=== PATIENT | male | born 1975 | race Caucasian/White ===

== ENCOUNTER 2025-09-05 21:04 | Inpatient (IN) | payer OTHER, SELFPAY ==
[2025-09-05 16:39] VITALS: BP 134/80
[2025-09-05 17:18] LABS: Hematocrit 34.5 % (39.0-52.0); Hemoglobin 10.9 g/dL (13.0-18.0); Mean Corp Hgb Conc. 31.6 g/dL (33.0-37.0); Mean Corpuscular Volume 81.8 fL (80.0-94.0); Nucleated Red Blood Cells % 0 % (-); Platelet Count 160 10^3/uL (130-400); Red Cell Dist. Width 13.3 % (11.5-14.5)
[2025-09-05 17:38] LABS: ALT (SGPT) 22 U/L (0-50); AST (SGOT) 32 U/L (17-59); Albumin 3.5 g/dl (3.5-5.0); Alkaline Phosphatase 146 U/L (38-126); Blood Urea Nitrogen 14 mg/dl (9-20); Calcium 8.3 mg/dl (8.4-10.2); Carbon Dioxide 25 mmol/L (22-30); Chloride 94 mmol/L (98-107); Glucose 393 mg/dl (70-99); Potassium 3.6 mmol/L (3.5-5.1); Sodium 129 mmol/L (135-145); Total Protein 6.7 g/dl (6.3-8.2); eGFR > 60.00
--- NOTE | 2025-09-05 18:31 | ED.GENMED ---
History of Present Illness
General
Chief Complaint: Skin Problem
Time Seen by Provider: 09/05/25 18:30
History of Present Illness
History of Present Illness:
FOCUSED PAST MEDICAL HISTORY
- IDDM, history of substance abuse
REVIEW OF OLD RECORDS
- No old records available for review in [facility]
Note:
CHIEF COMPLAINT(S)
Appearance and symptoms in the right foot.
HISTORY OF PRESENT ILLNESS
The patient is a 50-year-old male with a history of former alcohol abuse and recent methamphetamine abuse. He was initially treated at a facility called [facility] in [place], followed by participation in an aftercare program in the [place] area.
Over the past month, the patient reports a worsening condition of his right foot, with increasing concerns observed over the last several days. Symptoms include increasing weeping, pain, foul-smelling odor, and some crepitus on examination. The
patient denies any definite fevers. He mentioned that he has been adhering to his insulin regimen.
SOCIAL HISTORY
The patient has a former history of alcohol abuse and a recent history of methamphetamine abuse.
PHYSICAL EXAM
General: Alert, no acute distress.
Right foot: I remove the dressing, the dressing was soaked with fluid, there is foul odor, there are several ulcerative lesions which are likely infected there was also suggestion of some crepitus at the plantar aspect of the foot the right fifth
toe has more of a dusky appearance however the foot itself is really warm with otherwise normal cap refill there is skin breakdown noted to the dorsal aspect of the foot ulcers are noted at the heel and at the skin under the fifth metatarsal�I did
obtain a wound culture at that site, there is a larger but more superficial ulcer to the medial aspect of the right foot
Head: Normocephalic, atraumatic.
Neck: Supple, trachea midline.
Eye Ears, nose, mouth and throat: Oral mucosa moist.
Cardiovascular: Normal peripheral perfusion, No edema.
Respiratory: Respirations are non-labored.
Gastrointestinal: Abdomen nondistended.
Back: Normal range of motion, Normal alignment.
Neurological: Alert and oriented to person, place, time, and situation, No focal neurological deficit observed.
Psychiatric: Cooperative, appropriate mood & affect.
PROBLEM LIST
- Acute: Right foot infection with crepitus, foul-smelling odor, pain, and weeping.
- Social History affecting Health: Former alcohol abuse, recent methamphetamine abuse.
PLAN
- Initiate intravenous antibiotics.
- Admit to the hospital.
- Order and review foot X-ray to assess for any further complications.
DIFFERENTIAL DIAGNOSIS
The Differential Diagnosis includes, in no particular order and is not limited to:
1. Cellulitis
2. Abscess
3. Diabetic foot ulcer
4. Necrotizing fasciitis
5. Gas gangrene
6. Osteomyelitis
7. Deep vein thrombosis (DVT)
8. Chronic venous insufficiency
9. Peripheral artery disease
10. Thrombophlebitis
Disposition:
SUMMARY OF ENCOUNTER
The 50-year-old male patient presented to the emergency department with concerning symptoms related to the right foot, including a foul-smelling odor and ulcerative lesions suggestive of infection. The patients background includes a history of
former alcohol abuse and recent methamphetamine abuse, which may contribute to his current health status. Findings on examination were alarming, with signs of potential infection, as indicated by leukocytosis. A decision was made to initiate
treatment with intravenous antibiotics vancomycin and piperacillin-tazobactam (Zosyn) to address the likely bacterial infection. Insulin and fluids were administered to manage his diabetes, along with acetaminophen (Tylenol) to address a low-grade
fever. Due to the severity of the condition, hospital admission was planned for further management and monitoring.
DISPOSITION
Admit to the hospital.
ASSESSMENT
The patient is likely suffering from a severe infection of the right foot, possibly a diabetic foot ulcer or more severe infection like necrotizing fasciitis or osteomyelitis, as indicated by the foul-smelling odor, ulcerative lesions, and
leukocytosis.
EMERGENCY TREATMENTS ADMINISTERED
- Vancomycin
- Piperacillin-tazobactam (Zosyn)
- Insulin
- Fluids
- Acetaminophen (Tylenol)
PLAN
- Initiate intravenous antibiotics therapy with vancomycin and piperacillin-tazobactam.
- Administer insulin to manage glucose levels.
- Provide supportive care with fluids and acetaminophen.
- Admit to the hospital for further monitoring, investigation, and management of the right foot infection.
INDEPENDENT REVIEW OF LABS AND INTERPRETATION OF TESTS
My independent review of CBC indicates leukocytosis, which is consistent with the suspected infection of the right foot.
MEDICAL DECISION MAKING
-Complexity of Data Reviewed: Chronic conditions affecting care [history of former alcohol abuse and recent methamphetamine abuse]. Differential diagnosis list includes cellulitis, abscess, diabetic foot ulcer, necrotizing fasciitis, gas gangrene,
osteomyelitis, deep vein thrombosis (DVT), chronic venous insufficiency, peripheral artery disease, and thrombophlebitis.
-Data:
Category 1
- My independent interpretation of CBC indicates leukocytosis.
-Risk:
Prescription drug management and intravenous antibiotic therapy were initiated, given the high morbidity risk associated with the patient�s presenting ulcers and infection. The decision to admit the patient highlights the potential complications
from the severe infection suspected in the differential diagnoses.
DIAGNOSIS
- Severe right foot infection, likely diabetic foot ulcer or osteomyelitis (ICD-10: E11.621).
- History of substance abuse affecting current health status (ICD-10: F19.10).
RADIOLOGY
- Suspicion for soft tissue gas on x-ray�forwarded x-rays to podiatry on-call
- Podiatry recommended CT imaging which I personally viewed and also see air in the soft tissue
Podiatry came in to evaluate the patient at bedside
LABS
- White count 19.1, hemoglobin 10.9, glucose 393 with a sodium of 129, bicarb normal, lactic normal
Phy Exam
Physical Exam
Physical Exam:
See HPI
Course
Orders/Labs/Results
Orders:
Orders
09/05/25 16:56
Complete Blood Count/With Diff Urgent
Comprehensive Metabolic Panel Urgent
Lactic Acid Urgent
Blood Culture Urgent
SEN Source: Blood/Venous
Specimen Description:
09/05/25 18:32
0.9% Sodium Chloride 1000 ml [Nss] 1,000 ml IV BOLUS
09/05/25 18:41
CR Foot - Right Min 3 Views Urgent
Comment:
Reason For Exam: eval for osteomyelitis
09/05/25 18:43
Insulin Human Regular [Novolin R] 10 units SC NOW STA
09/05/25 18:44
Piperacillin/Tazo 3.375 Gram [Zosyn] 3.375 gram in 50 ml IV NOW
09/05/25 18:45
Acetaminophen [Tylenol] 1,000 mg PO NOW STA
09/05/25 19:07
Vancomycin [Vancocin] 2,000 mg 0.9% Sodium Chloride 500 ml [Nss] 500 ml IV NOW
09/05/25 19:38
Nicotine [Nicoderm Transdermal] 21 mg TRANSDERM NOW STA
09/05/25 19:40
CT Lower Ext W/iv Cont Rt Urgent
Comment:
Reason For Exam: eval R foot infection
09/05/25 19:41
0.9% Sodium Chloride 1000 ml [Nss] 1,500 ml IV BOLUS
09/05/25 19:43
Blood Culture Urgent
SEN Source: Blood/Venous
Specimen Description:
Wound Culture [Wound/Abscess/Other Culture] Urgent
SEN Source: Foot
Specimen Description: Right
Date Specimen was Collected: 09/05/25
Time Specimen was Collected: 19:21
09/05/25 20:12
Admit/Transfer Patient As Directed
Co-Sign Provider:
Level of Care: Inpatient admission
Assign to:: Telemetry
Physician / Group: Keenan Lujan
Diagnosis: Diabetic foot infection
Reason for Telemetry: Arrhythmia
Date to Stop Telemetry: 09/08/25
Time to Stop Telemetry: 11:00
Reason for Hospitalization: Diabetic foot infection
Expected length of stay greater than two midnights?: Yes
ELOS- Estimated Length of Stay in days: 3
I certify the patient meets the requirements for IP care: Yes
09/05/25 20:13
PRN Pain Medication Management As Directed
May give lesser potent ordered pain med per pt: Yes
preference::
Protocol:: Medication orders for pain may be administered in a
manner that supports deferring to patient preference
when the pt is:
- Requesting an ordered lesser potent pain medication.
Least to most potent pain medications are defined
as: acetaminophen < NSAID < tramadol < opioids
(morphine, oxycodone, hydromorphone).
- Requesting a lesser dose of the same medication IF
ORDERED.
- Requesting a less intrusive route of administration
if both routes are prescribed by the provider (PO <
IV).
09/05/25 20:14
Code Status As Directed
Resuscitation Status: Full Code
09/08/25 11:00
DC Protocol for Telemetry ONCE
Abnormal Lab Results
09/05/25
16:56
WBC 19.1 H 10^3/uL
(4.8-10.8)
RBC 4.22 L 10^6/uL
(4.70-6.10)
Hgb 10.9 L g/dL
(13.0-18.0)
Hct 34.5 L %
(39.0-52.0)
MCH 25.8 L pg
(27.0-31.0)
MCHC 31.6 L g/dL
(33.0-37.0)
Abs Immat Gran (auto) 0.3 H 10^3/uL
(0-0.05)
Absolute Neuts (auto) 16.9 H 10^3/uL
(1.4-6.5)
Absolute Lymphs (auto) 0.9 L 10^3/uL
(1.2-3.4)
Absolute Monos (auto) 1.1 H 10^3/uL
(0.1-0.6)
Immature Gran % 1.5 H %
(0-0.5)
Neutrophils % 88.1 H %
(42.2-75.2)
Lymphocytes % 4.6 L %
(20.5-51.1)
Sodium 129 L mmol/L
(135-145)
Chloride 94 L mmol/L
(98-107)
Glucose 393 H mg/dl
(70-99)
Calcium 8.3 L mg/dl
(8.4-10.2)
Alkaline Phosphatase 146 H U/L
(38-126)
09/05/25 16:56
09/05/25 16:56
Vital Signs
Initial and Last Documented VS:
Initial Vital Signs
Temp Pulse Resp BP Pulse Ox
37.9 C 114 18 134/80 98
09/05/25 16:39 09/05/25 16:39 09/05/25 16:39 09/05/25 16:39 09/05/25 16:39
Last Documented Vital Signs
Temp Pulse Resp BP Pulse Ox
37.1 C 114 18 134/80 98
09/05/25 20:45 09/05/25 16:39 09/05/25 16:39 09/05/25 16:39 09/05/25 18:32
*Pulse Oximetry
SaO2: 98
Oxygen Mode of Delivery: Room air
Patient hypoxic: no
*Critical Care Note
Total Time (30-74mins, 75-104mins- exclusive of procedures): Not Applicable
ED Attending Note
-
Portions of this chart may have been created with voice recognition software.� Occasional wrong word or��sound alike� substitutions may have occurred due to the inherent limitations of voice recognition software.
Discharge Plan
Departure
Patient Disposition: Admit
Date of Disposition: 09/05/25
Time of Disposition: 19:07
Presentation/result/management discussed w/ accepting MD/DO: Hospitalist
Discharge Problem:
Diabetic foot infection
Prescriptions:
No Action
atorvastatin 20 mg Tablet
20 mg PO HS
dicyclomine 20 mg Tablet
20 mg PO TID
gabapentin 600 mg Tablet
1,200 mg PO TID
trazodone 50 mg Tablet
50 mg PO HS
meloxicam 15 mg Tablet
15 mg PO DAILY
naltrexone 50 mg Tablet
50 mg PO DAILY
sertraline 100 mg Tablet
100 mg PO DAILY
hydroxyzine pamoate 50 mg Capsule
50 mg PO TID
risperidone 2 mg Tablet
2 mg PO HS
tamsulosin 0.4 mg Capsule
0.8 mg PO DAILY
pantoprazole 40 mg Tablet,Delayed Release (Dr/Ec)
40 mg PO DAILY
furosemide 20 mg Tablet
20 mg PO DAILY
glipizide 5 mg Tablet
5 mg PO DAILY
insulin degludec 100 unit/mL (3 mL) Insulin Pen
35 unit SC BID
Discharge Date and Time
Print Language: CAPE VERDEAN
[2025-09-05 18:59] VITALS: BMI 29.8
--- NOTE | 2025-09-05 19:10 | HPS.HSE ---
Family Physician
-
Family Physician:
Chief Complaint
-
worsening right foot wound
History of Present Illness
Patient is a 50-year-old male with past medical history of hyperlipidemia, type 2 diabetes, neuropathy, depression/anxiety and polysubstance abuse who presented to [facility] ED for evaluation of worsening right foot wound. Patient reports relocating here
to [place] to [facility] for rehab treatment, [facility] [place]. He transferred here for continue aftercare treatment. Patient reports wound present prior to relocation but after 27 hour bus trip he reports wound is
significantly worse than before. He complains of increased edema, weeping, erythema, pain and odor. Patient denies any known fevers.
Medical History
Past Medical History
Past Medical History: Reports Other
Additional Past Medical History:
hyperlipidemia
type 2 diabetes
neuropathy
depression/anxiety
polysubstance abuse
Past Surgical History: Reports Other
Additional Past Surgical History:
cataract implants
Social History
Tobacco: Smoker (7-8 cigarettes per day currently )
Alcohol: Former (last drink approximately 2 years ago )
Drug: Former User
Living: Other (rehab facility )
Family History
Family History: Other (Mother: uterine cancer )
Allergies / Home Medications
Allergies reflects when Allergies were last updated in [employer].
Home Medications with original date entered in [employer]
Allergy/Medication List:
Allergies
Allergy/AdvReac Type Severity Reaction Status Date / Time
No Known Allergies Allergy Unverified 09/05/25 16:38
Home Medications
atorvastatin 20 mg tablet 20 mg PO HS 09/05/25
dicyclomine 20 mg tablet 20 mg PO TID 09/05/25
furosemide 20 mg tablet 20 mg PO DAILY 09/05/25
gabapentin 600 mg tablet 1,200 mg PO TID 09/05/25
glipizide 5 mg tablet 5 mg PO DAILY 09/05/25
hydroxyzine pamoate 50 mg capsule 50 mg PO TID 09/05/25
insulin degludec 100 unit/mL (3 mL) subcutaneous pen 35 unit SC BID 09/05/25
meloxicam 15 mg tablet 15 mg PO DAILY 09/05/25
naltrexone 50 mg tablet 50 mg PO DAILY 09/05/25
pantoprazole 40 mg tablet,delayed release 40 mg PO DAILY 09/05/25
risperidone 2 mg tablet 2 mg PO HS 09/05/25
sertraline 100 mg tablet 100 mg PO DAILY 09/05/25
tamsulosin 0.4 mg capsule 0.8 mg PO DAILY 09/05/25
trazodone 50 mg tablet 50 mg PO HS 09/05/25
Review of Systems
-
History Source: Patient
Constitutional: Denies Fever or Chills
EENT: Denies Sore Throat
Respiratory: Denies Cough, Hemoptysis or Trouble Breathing
Cardiac: Denies Chest Pain, Diaphoresis, Palpitations or Syncope
Abdomen/GI: Denies Abdominal Pain, Nausea, Vomiting or Diarrhea
: Denies Dysuria, Frequency or Urgency
Musculoskeletal: Reports Edema (right foot )
Skin: Reports Other (right foot wound )
Neurological: Denies Dizzy
Hematologic/Lymphatic: Denies Bleeding
Physical Exam
Vital Signs
Vital Signs
Temp Pulse Resp BP Pulse Ox
100.2 F 114 18 134/80 98
09/05/25 16:39 09/05/25 16:39 09/05/25 16:39 09/05/25 16:39 09/05/25 18:32
Physical Exam
General: Well Developed, Well Nourished, No Apparent Distress, Comfortable, Conversant and Obese
HEENT: NormoCephalic, Moist mucous membranes, Nose Appears Normal and Ears Appear Normal
Respiratory: Clear and Non Labored Respirations; No Wheezes, Rales, Rhonchi or Crackles
Cardiac: S1/S2 and Regular Rhythm; No Murmur, Rub or Gallop
GI: Soft, Non Tender, Non Distended and Normal Bowel Sounds
Musculoskeletal: No Clubbing, No Cyanosis and No Edema
Skin: IV/Catheter Site and Other (right foot wound with multiple ulcerative lesions with exodus )
Neuro: Awake and AO x 3
Hematologic/Lymphatic: No Lymphadenopathy
Psych: Calm
Laboratory Results
-
09/05/25 16:56
09/05/25 16:56
Laboratory Results
Lactic Acid 1.7 mmol/L (0.7-2.0) 09/05/25 16:56
Total Bilirubin 0.7 mg/dl (0.2-1.3) 09/05/25 16:56
AST 32 U/L (17-59) 09/05/25 16:56
ALT 22 U/L (0-50) 09/05/25 16:56
Alkaline Phosphatase 146 U/L (38-126) H 09/05/25 16:56
Data Reviewed
-
Diagnostic Radiology: Report Reviewed by me (right foot )
Lab Data: Labs Reviewed by me (WBC 19.1, hgb 10.9, hct 34.5, neut 88.1, Na+ 129)
Impression/Plan
-
IMPRESSION/PLAN:
#diabetic foot wound
WBC 19.1, hgb 10.9, hct 34.5, neut 88.1, Na+ 129
Right foot x-ray:
Blood Cx: pending
- Admit to med/surg
- IVF NSS 100cc/hr
- IV Vanco and Zosyn
- Consult ID
- Consult Podiatry
- supportive care
#hyperlipidemia
- continue atorvastatin
#type 2 diabetes
- AccuCheck AC & HS
- SSI
- continue insulin degludec
#neuropathy
- continue gabapentin
#depression/anxiety
- continue sertraline
#polysubstance abuse
- continue dicyclomine, hydroxyzine, risperidone and trazodone
Code status: full code
DVT prophylaxis: SCDs
--- NOTE | 2025-09-05 19:11 | W.PN.UPDATE ---
Update Note
Progress Note Update
Patient seen in conjunction with nurse practitioner. I agree with the history and physical. I concur with the plan of less today otherwise.
Briefly, this is a 50-year-old with past medical history significant for insulin-dependent diabetes, history of drug abuse (methamphetamine), hyperlipidemia, who is currently at a rehab and presents from [facility] rehab for worsening foot infection.
He is here today for increasing weeping of fluid from the right foot. He reports a significant foul odor. The wound is apparently acute on chronic affecting both the medial aspects of the right foot as well as a lateral distance aspect of the
right metatarsal. There is erythema swelling and tenderness to palpation. He has bilateral calcaneal ulcer.
The patient has been at [place] for about a month and has been getting wound care there. He transferred to [place] about 3 days ago. Since he arrived the caregivers have noticed worsening swelling erythema and drainage of his right foot.
He was tachycardic, had a Tmax of 37.9,. He is satting 90% on room air.
CBC shows a white count of 19, electrolytes are notable for a sodium of 129 potassium of 3.6 and a bicarb of 25. Glucose was 393. No serum anion gap
X-ray shows subcutanous gas
Assessment and plan
48-year-old male history of methamphetamine drug abuse and insulin-dependent diabetes who is here with a diabetic foot infection. Poorly controlled blood glucose.
1 diabetic foot infection w/ sepsis -no extensive infection and cellulitis of the right foot. Has systemic findings. Has Sepsis. Currently hemodynamically stable.
- Admit to Telemetry, sepsis
- Continue IV vancomycin
- Continue IV Zosyn
- Blood cultures have been sent
-Will leave additional 1.5 L of normal saline
- CT foot
- npo
- Podiatry consultation, bedside I&D after CT tongight, npo for OR in am
- ID consult
2. Uncontrolled diabetes -hyperglycemic, no evidence of DKA
- Will give a one-time dose of 5 units of insulin
- moderate sliding scale ACHS
- Lantus bid, hold if npo
- glipizide if eating
- IV fluids
3. Drug Abuse
- continue his naltrexone
- continue trazodone
- continue risperdal
- setraline daily
- will continue his usual gabapentin
4. BPH
- continue tamsulosin
DVT prophylaxis�Lovenox subcu
CODE STATUS�full code
[2025-09-05] MEDS: NOVOLIN R 10 UNITS SC (19:26)
[2025-09-05] MEDS: TYLENOL 1000 MG PO (19:26)
[2025-09-05] MEDS: ZOSYN 50 IV (19:26)
[2025-09-05] MEDS: NSS 1000 IV ×2 (19:41→22:26)
[2025-09-05] MEDS: NICODERM TRANSDERMAL 21 MG TRANSDERM (19:47)
[2025-09-05] MEDS: VANCOCIN 540 MG IV (20:40)
[2025-09-05] MEDS: NSS 1500 IV (20:43)
[2025-09-05 21:31] VITALS: BP 109/66
--- NOTE | 2025-09-05 21:43 | W.PN.UPDATE ---
Update Note
Progress Note Update
50M s/p bedside I&D for gas infection Right foot
- plan for OR tomorrow, debridement
-- would appreciate vascular recommendations, Right foot is not likely salvagable
-- NPO at midnight
- continue IV abx
-- wound cx x2
- NWB RLE
- Elevate RLE 2-3 pillows
- will continue to monitor
[2025-09-05 22:15] VITALS: BP 128/72; BMI 28.6
[2025-09-05 22:20] LABS: Glucose - Point of Care 341 mg/dl (70-99)
[2025-09-05] MEDS: LIPITOR 20 MG PO (22:47)
[2025-09-05] MEDS: DESYREL 50 MG PO (22:47)
[2025-09-05] MEDS: RISPERDAL 2 MG PO (22:47)
[2025-09-05 23:00] VITALS: BP 110/64
--- NOTE | 2025-09-05 23:02 | PHA.VAN.IN ---
Assessment
- Assessment
Renal Function: Unknown baseline
AUC Dosing Plan
- Empiric Dosing
Initial / Loading Dose: 2000 mg IV @ 2040
Maintenance Regimen: 1250 mg IV Q12H
Estimated AUC (mcg*h/mL): 413
Estimated Peak (mcg*h/mL): 28.2
Estimated Trough (mcg/ml): 9.2
Estimated Half Life (H): 6.5
- Monitoring
No levels ordered at this time: level to be ordered on follow-up
Pharmacokinetics Vancomycin I
- -
Patient Age: 50
Patient Sex: Male
Vancomycin Day #: 1
Indication: Diabetic Foot
Requesting Provider: Eli HAIDER
Height / Weight:
Height 5 ft 9 in
Actual Weight 87.713 kg
- Vital Signs / Lab Results
Temp Pulse Resp BP Pulse Ox
98.2 F 94 18 128/72 95
09/05/25 22:15 09/05/25 22:15 09/05/25 22:15 09/05/25 22:15 09/05/25 22:15
Lab Results - Hematology
09/05/25
16:56
WBC 19.1 H
Lab Results - Chemistry
09/05/25
16:56
BUN 14
Creatinine 0.7
Albumin 3.5
09/05/25
16:56
Lactic Acid 1.7
[2025-09-06] VITALS (11 sets, daily range): BP systolic 102–149; BP diastolic 60–77; BMI 28.7
[2025-09-06 00:01] LABS: Glucose - Point of Care 299 mg/dl (70-99)
[2025-09-06] MEDS: NOVOLOG FLEXPEN-LOW RESISTANCE 3 UNITS SC (00:21)
[2025-09-06] MEDS: ZOSYN 50 IV ×3 (01:12→20:08)
[2025-09-06] MEDS: VANCOCIN 275 MG IV (05:02)
[2025-09-06 05:23] LABS: Glucose - Point of Care 319 mg/dl (70-99)
[2025-09-06] MEDS: NOVOLOG FLEXPEN-LOW RESISTANCE 4 UNITS SC (05:26)
[2025-09-06 07:05] LABS: Hematocrit 29.5 % (39.0-52.0); Hemoglobin 9.9 g/dL (13.0-18.0); Mean Corp Hgb Conc. 33.6 g/dL (33.0-37.0); Mean Corpuscular Volume 79.9 fL (80.0-94.0); Platelet Count 139 10^3/uL (130-400); Red Cell Dist. Width 13.0 % (11.5-14.5)
[2025-09-06 07:14] LABS: Blood Urea Nitrogen 15 mg/dl (9-20); Calcium 7.5 mg/dl (8.4-10.2); Carbon Dioxide 29 mmol/L (22-30); Chloride 105 mmol/L (98-107); Estimated Creatinine Clearance > 125 ml/min; Glucose 193 mg/dl (70-99); HDL Cholesterol 12 mg/dl; LDL Cholesterol, Calculated 22 mg/dl; Potassium 2.8 mmol/L (3.5-5.1); Sodium 137 mmol/L (135-145); Very Low Density Lipoprotein 18 mg/dl (0-30); eGFR > 60.00
--- NOTE | 2025-09-06 08:38 | WOUNDNOTE ---
L GREAT TOE TIP
--- NOTE | 2025-09-06 08:39 | WOUNDNOTE ---
[facility] RN note: Patient admitted with R diabetic foot infection. s/p R foot bedside I+D yesterday and is for OR for his R foot today.
See H&P for complete history.
PMH: DM, neuropathy, former polysubstance abuse, smoker, former ETOH use.
Wound Location and type/assessment: Patient admitted with: R foot wound dressing D+I to be managed by podiatry and vascular. L heel dry necrotic ulcer 80% appears superficial with dime sized suspect could be full thickness. Mild local erythema
proximal edge of periwound skin. L great toe tip scabbed abrasion. L pedal pulses heard via portable Doppler. Suspect PAD.
Appetite: NPO for procedure.
Pressure redistribution devices in place: [employer] Air bed. Patient moves self in bed. He has 2 heel off loading [employer] Velcro shoes with him.
Plan: Swabbed L heel dry necrotic ulcer with Betadine, foam dressing applied. Heels off bed with pillow. Instructed patient pressure injury prevention measures.
Will confirm orders with hospitalist or slitting machine operator helper and discussed with CHUCK Reddy.
Updated care plan and will follow peripherally as needed.
Note to case management requested for discharge: VN if needed.
[2025-09-06] MEDS: LANTUS 0.35 UNITS SC ×2 (08:41→22:44)
[2025-09-06] MEDS: NICODERM TRANSDERMAL 21 MG TRANSDERM (08:43)
[2025-09-06] MEDS: BENTYL 20 MG PO ×3 (08:48→22:49)
[2025-09-06] MEDS: GLUCOTROL 5 MG PO (08:49)
[2025-09-06] MEDS: ATARAX 50 MG PO ×3 (08:49→22:44)
[2025-09-06] MEDS: PROTONIX 40 MG PO (08:49)
[2025-09-06] MEDS: MOBIC 15 MG PO (08:49)
[2025-09-06] MEDS: NEURONTIN 1200 MG PO ×3 (08:49→22:44)
[2025-09-06] MEDS: FLOMAX 0.8 MG PO (08:49)
[2025-09-06] MEDS: LASIX 20 MG PO (08:49)
[2025-09-06] MEDS: REVIA 50 MG PO (08:50)
[2025-09-06] MEDS: ZOLOFT 100 MG PO (08:50)
[2025-09-06] MEDS: NSS 1000 IV (08:54)
[2025-09-06 08:59] LABS: Glycohemoglobin (HgbA1c) 10.8 % (4.0-5.6)
--- NOTE | 2025-09-06 09:40 | PHA.VAN.FU ---
Vancomycin Assessment / Plan
- Assessment
Renal Function: Stable
WBC's are: Trending Down
In the past 24 hrs, patient has been: Afebrile
Concomitant Antimicrobials: piperacillin/tazobactam
- Dosing Plan
Adjust Regimen to: Vanc 1500mg Q12H starting at 1800
New Regimen Predicts: AUC (487), Peak (33.5), Trough (10.8)
- Monitoring Plan
No level(s) ordered at this time: consider levels in next few days
- Follow Up
Pharmacy will continue to follow.
Vancomycin Follow UP
- -
Patient Age: 50
Patient Sex: Male
Vancomycin Day #: 2
Indication: Diabetic Foot
Requesting Provider: Eli HAIDER
Pertinent Antimicrobial Allergies:
NKDA
Height / Weight:
Height 5 ft 9 in
Actual Weight 87.713 kg
Pertinent Past Medical History: DM 2, polysubstance use disorder
- Vital Signs / Lab Results
Temp Pulse Resp BP Pulse Ox
98.2 F 95 20 125/69 92
09/06/25 08:00 09/06/25 08:00 09/06/25 08:00 09/06/25 08:49 09/06/25 08:00
Lab Results - Hematology
09/05/25 09/06/25
16:56 06:29
WBC 19.1 H 11.8 H
Lab Results - Chemistry
09/05/25 09/06/25
16:56 06:29
BUN 14 15
Creatinine 0.7 0.6 L
Estimated Creat Clear > 125
Albumin 3.5
09/05/25
16:56
Lactic Acid 1.7
--- NOTE | 2025-09-06 09:44 | W.PN.UPDATE ---
Update Note
Progress Note Update
Seen and examined with ANAESTHETIC TECHNICIAN's. Full consultation to follow. 50-year-old diabetic male (type 2 diabetes) with no history of peripheral arterial disease that he notes. Presents with right foot wound. He notes it followed a 27-hour bus trip.
Worsened foot wound with increasing edema. Seen by foot surgery and localized bedside debridement/drainage performed. We were asked by foot surgery to evaluate given concern for extensive infection with gas tracking up the ankle, and they are
feeling that the limb was not salvageable. As noted patient with no prior history of PAD. No history of lower extremity interventions (arterial interventions) prior. On exam/the dressing was removed. He has extensive necrotic and infectious
findings on his foot with severe malodorous wound/wet necrosis. CT scan imaging reviewed. He has extensive soft tissue gas gangrene. I agree with foot surgery evaluation that foot is not salvageable at this time. Discussed that frankly with the
patient who is aware (foot surgery already discussed with him). Discussed need for staged guillotine amputation/ankle disarticulation with metabolic optimization following that. And then subsequent staged definitive below the knee amputation.
Discussed the process with him. Discussed risks of no extensive intervention or no amputation at this time with risks of overwhelming sepsis and . He understands all that and wishes to proceed. Will add him onto the schedule for today for
urgent guillotine amputation/foot disarticulation.
--- NOTE | 2025-09-06 09:47 | CON.ID ---
Consultation
-
Date/Time Consultation Requested: September 05, 20254
Date/Time Consultation Performed: September 06, 2025 0924
Requesting Provider: Dr. Holland Clemente
Performing Provider: Dr. Alexa Estrada
Reason for Consultation: Foot infection
Chief Complaint / Past History
Chief Complaint
Worsening R foot infection
History of Present Illness
50-year-old male with uncontrolled diabetes mellitus, neuropathy, chronic foot wounds, who presented to the ED on September 05 due to right foot swelling, redness, and draining wounds. Patient currently in drug rehab and recently transferred from
[place] to [facility] about 3 days ago. He reports a long bus ride about 25 hours. During the bus ride he noted his right foot was getting more swollen. The foot wounds then started to drain foul-smelling pus. In the ER temperature
100.2, white count 19.1. CAT scan severe cellulitis throughout foot with large tissue ulceration extending close to the fifth MTP joint, positive extensive subcutaneous emphysema. Patient was taken to the OR this morning status post incision and
drainage by podiatry. Foot deemed unsalvageable. Patient is scheduled for guillotine amputation today.
Past History
Additional Past Medical History:
Diabetes mellitus type 2
Hypertension
Neuropathy
Polysubstance abuse
Depression/anxiety
Allergy History:
No Known Allergies Allergy (Unverified 09/05/25 16:38)
Medications Reviewed: Yes
Current Antibiotics:
Vancomycin
Zosyn
Social History
Tobacco: Smoker
Alcohol: Former
Drug: Former User (Methamphetamine)
Living: Other (Rehab facility)
Family History
Family History: Not Pertinent
Review of Systems
Review of Systems
General: Fever, Chills and Change in Appetite
HEENT: Negative Lymphadenopathy, Stiff Neck, Sinus Problems or Headache
Cardiovascular: Negative Chest Pain or Dyspnea
Respiratory: Negative Dyspnea or Cough
Gasteroenterology: Negative Nausea, Vomiting or Diarrhea
Genital / Urological: Negative Dysuria or Flank Pain
Endocrine: Weakness
All systems: All other systems were reviewed and were negative
Vital Signs
Temp Pulse Resp BP Pulse Ox
98.2 F 95 20 125/69 92
09/06/25 08:00 09/06/25 08:00 09/06/25 08:00 09/06/25 08:49 09/06/25 08:00
Physical Exam
Physical Exam
Constitutional: No Acute Distress
Eyes: No Conjunctival Hemorrhage and Sclera Anicteric
Cardiovascular: Regular Rate and S1/S2
Pulmonary: Clear
Gastrointestinal: Soft, Non Tender, Non Distended and Normal Bowel Sounds
Genito-Urinary: Negative CVA Tenderness
Extremities: Negative Edema
Wound: Other (Right foot with post-op dressing. Left heel with eschar wound. )
Neurological: AO x 3
Lab / Diagnostic Study Results
09/06/25 06:29
09/06/25 06:29
Abs Immat Gran (auto) 0.3 10^3/uL (0-0.05) H 09/05/25 16:56
Absolute Neuts (auto) 16.9 10^3/uL (1.4-6.5) H 09/05/25 16:56
Absolute Lymphs (auto) 0.9 10^3/uL (1.2-3.4) L 09/05/25 16:56
Absolute Monos (auto) 1.1 10^3/uL (0.1-0.6) H 09/05/25 16:56
Absolute Basos (auto) 0.1 10^3/uL (0-0.2) 09/05/25 16:56
Immature Gran % 1.5 % (0-0.5) H 09/05/25 16:56
Neutrophils % 88.1 % (42.2-75.2) H 09/05/25 16:56
Lymphocytes % 4.6 % (20.5-51.1) L 09/05/25 16:56
Monocytes % 5.5 % (1.7-9.3) 09/05/25 16:56
Eosinophils % 0.0 % (0-6) 09/05/25 16:56
Basophils % 0.3 % (0-2) 09/05/25 16:56
Lactic Acid 1.7 mmol/L (0.7-2.0) 09/05/25 16:56
Microbiology Results
Micro:
09/05/25 23:18 MRSA Screen - Pending
Nose
09/05/25 21:47 Anaerobic Culture - Pending
Foot - Right
09/05/25 21:47 Wound Culture - Pending
Foot - Right Gram Stain - Pending
09/05/25 19:43 Blood Culture - Pending
Blood/Venous
09/05/25 19:43 Wound Culture - Pending
Foot - Right Gram Stain - Pending
09/05/25 16:56 Blood Culture - Pending
Blood/Venous
09/05/25 CR RLE: Extensive cellulitis throughout the foot. Large soft tissue ulceration extends close to the fifth MTP joint. While there is no definite CT evidence for osteomyelitis, given the proximity of the ulcer and extensive degree of
surrounding subcutaneous emphysema in this region, findings are suspicious for osteomyelitis/septic arthritis of the fifth MTP joint. No definite abscess. Consider MRI for further evaluation.
Assessment / Plan
# Wet/gas gangrene of right foot, nonsalvageable
# Leukocytosis
# Uncontrolled DM, A1c 10.8
- 09/06 s/p I+D. OR cx's pending
- 09/06 for guiljanineine amp.
- Continue Vancomycin and Zosyn.
-Follow wbc.
- Recommend tight glucose control.
Conditions present on admission:
Diabetes mellitus type 2
Hypertension
Neuropathy
Polysubstance abuse
Depression/anxiety
--- NOTE | 2025-09-06 10:13 | CON.VAS ---
Consultation
Consultation Request
Date/Time Consultation Performed: 09/06/2025 1000
Requesting Provider: Hospitalist
Performing Provider: MILA Felix for Hossein Valentino MD
Reason for Consultation: RLE foot wound
Medical History
-
Chief Complaint: RLE foot wounds
History of Present Illness:
Patient is a 50-year-old male with past medical history of hyperlipidemia, type 2 diabetes, neuropathy, depression/anxiety and polysubstance abuse who presented to [facility] ED for evaluation of worsening right foot wound. Patient reports relocating here
to [place] to [facility] for rehab treatment, he was in a facility in [place] but was recently transferred to [facility] for continue aftercare treatment. Patient reports wound present prior to relocation but after 27 hour bus trip he reports wound is
significantly worse than before. He complains of increased edema, weeping, erythema, pain and odor. Patient denies any known fevers. Presents with right foot wound. Seen by foot surgery and localized bedside debridement/drainage performed. We were
asked by foot surgery to evaluate given concern for extensive infection with gas tracking up the ankle, and they are feeling that the limb was not salvageable. Patient with no prior history of PAD. No history of lower extremity interventions
(arterial interventions) prior. CT scan imaging reviewed. He has extensive soft tissue gas gangrene.
Past Medical History
Past Medical History: IDDM, Psychiatric (depression/anxiety) and Other (hyperlipidemia, neuropathy, polysubstance abuse)
Past Surgical History: Other (cataract implants)
Social History
Tobacco: Smoker
Alcohol: Former
Drug: Former User
Living: Other (Rehab facility)
Allergies / Home Medications
Allergy/AdvReac Type Severity Reaction Status Date / Time
No Known Allergies Allergy Unverified 09/05/25 16:38
�Medication �Instructions �Recorded �Confirmed �Type
atorvastatin 20 mg tablet 20 mg PO HS High Cholesterol 09/05/25 09/05/25 History
dicyclomine 20 mg tablet 20 mg PO TID Gastrointestinal Issue 09/05/25 09/05/25 History
furosemide 20 mg tablet 20 mg PO DAILY Fluid 09/05/25 09/05/25 History
Retention/Swelling
gabapentin 600 mg tablet 1,200 mg PO TID Neurological 09/05/25 09/05/25 History
Condition
glipizide 5 mg tablet 5 mg PO DAILY Diabetes 09/05/25 09/05/25 History
hydroxyzine pamoate 50 mg capsule 50 mg PO TID Mental Health/Anxiety 09/05/25 09/05/25 History
insulin degludec 100 unit/mL (3 35 unit SC BID Diabetes 09/05/25 09/05/25 History
mL) subcutaneous pen
meloxicam 15 mg tablet 15 mg PO DAILY Pain 09/05/25 09/05/25 History
naltrexone 50 mg tablet 50 mg PO DAILY Substance abuse 09/05/25 09/05/25 History
disorder
pantoprazole 40 mg tablet,delayed 40 mg PO DAILY Gastrointestinal 09/05/25 09/05/25 History
release Issue
risperidone 2 mg tablet 2 mg PO HS Mental Health/Anxiety 09/05/25 09/05/25 History
sertraline 100 mg tablet 100 mg PO DAILY Depression 09/05/25 09/05/25 History
tamsulosin 0.4 mg capsule 0.8 mg PO DAILY Urinary Issue 09/05/25 09/05/25 History
trazodone 50 mg tablet 50 mg PO HS Sleep 09/05/25 09/05/25 History
Review of Systems
-
History Source: Patient
Constitutional: Reports No Symptoms
EENT: Reports No Symptoms
Respiratory: Reports No Symptoms
Abdomen/GI: Reports No Symptoms
: Reports No Symptoms
Musculoskeletal: Reports Edema (RLE)
Skin: Reports Other (right foot wound)
Neurological: Reports No Symptoms
Endocrine: Reports No Symptoms
Physical Exam
Vital Signs
Temp Pulse Resp BP Pulse Ox
98.2 F 95 20 125/69 92
09/06/25 08:00 09/06/25 08:00 09/06/25 08:00 09/06/25 08:49 09/06/25 08:00
Lab Results
09/06/25 06:29
09/06/25 06:29
Physical Exam
General: No Apparent Distress
HEENT: Normocephalic, Anicteric and Atraumatic
Respiratory: Non Labored Respirations
Cardiac: Negative JVD
GI: Soft, Non Tender and Non Distended
Musculoskeletal: Edema (+1 RLE)
Skin: Other (Right foot with extensive necrotic and infectious findings on his foot with severe malodorous wound/wet necrosis)
Neuro: AO x 3
Assessment / Plan
-
Assessment: 50 year old male with extensive soft tissue gas gangrene of right foot.
Plan:
Patient seen and with Dr. Hossein Valentino. Agree with foot surgery evaluation that foot is not salvageable at this time. Discussed that frankly with the patient who is aware (foot surgery already discussed with him). Discussed need for staged guillotine
amputation/ankle disarticulation with metabolic optimization following that. And then subsequent staged definitive below the knee amputation. Discussed the process with him. Discussed risks of no extensive intervention or no amputation at this
time with risks of overwhelming sepsis and . He understands all that and wishes to proceed. Will add him onto the schedule for today for urgent guillotine amputation/foot disarticulation.
NPO
[2025-09-06] MEDS: NSS with KCL 40 MEQ 1000 IV (10:53)
[2025-09-06 11:59] LABS: Glucose - Point of Care 162 mg/dl (70-99)
[2025-09-06] MEDS: NOVOLOG FLEXPEN-LOW RESISTANCE 1 UNITS SC (12:18)
--- NOTE | 2025-09-06 14:14 | CM ---
Initial assessment completed. Patient is a 50-year-old male with past medical history of hyperlipidemia, type 2 diabetes, neuropathy, depression/anxiety and polysubstance abuse who presented to [facility] ED for evaluation of worsening right foot wound.
Patient currently resides at [facility], an addiction treatment center that he recently relocated to from [place] for continued recovery treatment. Patient was prev independent, no DME. CM spoke w/ CM, Smita ([phone]),
and nurse practitioner, Adolph ([phone]), from [facility] regarding patient. Smita confirmed that patient was receiving detox treatment in [place] then relocated to sister facility, [facility], in [place] to continue treatment. Per Smita, her team was
not aware of patient's wound or the extent of care that it needed. Smita asking if patient can go to SNF, CM shared patient will need to be evaluated for any rehab needs, however, due to patient having out of state insurance, he may not have any
benefits for longterm.
Confirmed w/ Adolph that patient was only w/ them for 24 hours before wound became worse and needed to be seen in the ED. Program is 6 months, however, patient didn't begin program. DOLLY reviewed medical consultations w/ Adolph. Plan is for patient to
go to OR today for urgent guillotine amputation/foot disarticulation. Adolph stated patient wouldn't be able to return to [facility] as he wouldn't get the level of care he'll need if he is unable to ambulate independently. Adolph stated the recovery
center is a sober living residence and there's no medical staff on site besides her so patient wouldn't be able to get 24/7 care if needed. Adolph mentioned [facility] for medical and tx as an option for patient but will work w/ CM for discharge
planning.
Faxed clinicals to [facility] ([phone])
Plan: OR today. PT/OT to be consulted
--- NOTE | 2025-09-06 14:45 | W.SUR.PREOP ---
Pre-Operative Surgical Note
-
I have examined this patient prior to the performance of the scheduled procedure.
The patient's condition is unchanged from the time of the current History and
Physical and the patient is able to undergo the scheduled procedure.
--- NOTE | 2025-09-06 14:46 | W.PN.HOSP.TC ---
Today's Communication/Plan
-
IV antibiotics
IV fluids with potassium
OR for amputation
Assessment / Plan
Assessment / Plan
Impression:
Right foot gas gangrene
Concern for sepsis upon admission, ruled out without evidence of endorgan damage or systemic infection currently.
Hyponatremia secondary to hypovolemia
Hypokalemia
Other conditions
Poorly controlled diabetes
Drug use disorder, multisubstance including amphetamine, remote history of IVDA.
Tobacco use disorder
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
Treated hepatitis C.
Dyslipidemia.
BPH
Plan
Right foot gas gangrene.
Concern for sepsis on admission, ruled out, likely aborted with early antibiotic initiation.
Not salvageable with plan for staged amputation.
Continue broad-spectrum antibiotics including vancomycin and Zosyn pending cultures.
ID/vascular surgery and podiatry input appreciated.
Hypokalemia
Hypovolemic hyponatremia
Continue isotonic IV fluids with potassium baseline avoid hypotension baseline follow BMP closely.
Hold furosemide (no clear indication)
Poorly controlled IDDM.
Hemoglobin A1c 10.5.
Persistent hyperglycemia
Continue Lantus preadmission dose 35 units twice daily.
Basal bolus protocol.
Hold glipizide acutely
Cirrhosis secondary to alcohol and possibly hepatitis C./Treated hepatitis C. Psych currently compensated.
Multisubstance use disorder.
Currently travel out of state for initiation of drug rehab.
Reports sobriety for at least over a months.
Continue preadmission regimen including naltrexone, pantoprazole, risperidone, gabapentin, sertraline, trazodone
Further adjustment of analgesic regimen including opioids while patient on naltrexone
Anticipated Discharge: > 48 hours
Subjective/Interval History
-
Date of Service: September 06, 2025
Objective Data
-
Labs:
Laboratory Results
09/06/25
06:29
WBC 11.8 H
Hgb 9.9 L
Hct 29.5 L
Plt Count 139
Sodium 137 D
Potassium 2.8 L
Chloride 105
Carbon Dioxide 29
BUN 15
Creatinine 0.6 L
Glucose 193 H
Calcium 7.5 L
Vital Signs:
Vital Signs
Temp Pulse Resp BP Pulse Ox
97.9 F 84 18 119/63 94
09/06/25 11:29 09/06/25 11:29 09/06/25 11:29 09/06/25 11:29 09/06/25 11:29
I&O
09/05/25 09/06/25 09/07/25
06:59 06:59 06:59
Intake Total 1365 / 1365
Output Total 200 / 200
Balance 1165 / 1165
Physical Exam
-
General: Well Developed and No Apparent Distress
HEENT: Normocephalic, Atraumatic and Moist Mucous Membranes
Respiratory: Clear to Auscultation
Cardiac: Regular Rhythm and S1/S2; Negative Murmur, Rub or Gallop
GI: Soft, Nontender, Nondistended and Normal Bowel Sounds; Negative Organomegaly
Rectal: Deferred by Provider
Musculoskeletal: No Clubbing, No Cyanosis and No Edema
Skin: Negative Rash
Neuro: Nonfocal/Grossly Intact
--- NOTE | 2025-09-06 15:28 | W.SUR.POST ---
Surgical Immediate Post Op
Note
Pre Op Diagnosis: Right lower extremity nonhealing foot wound
Post Op Diagnosis: Right lower extremity nonhealing foot wound
Procedure Performed: Right lower extremity ankle disarticulation
Primary Surgeon: Hossein Valentino M.D.
optical assistant: VITALY Jones
Anesthesia: GETA
Estimated Blood Loss: 25 mL
Fluids: See anesthesia flowsheet
Drains/Shunts: N/A
Specimens/Cultures: Right foot
Doppler/Duplex/Angio (Y/N): No
Complications: None
Operative Findings: Successful removal of right foot, source control for infection
--- NOTE | 2025-09-06 15:35 | OR.RPT ---
Operative Report
Operative Report
PROCEDURE DATE: 09/06/2025
Preoperative diagnosis:
1. Wet gangrene right foot.
2. Sepsis.
Postoperative diagnosis: Same
Procedure: Right ankle disarticulation.
Surgeon: Chicho
Car Worker Helper: VASU Cox, required for all aspects of procedure including assistance with traction/countertraction.
Complications: None
Anesthesia: General
Indications for procedure:
Wet gangrene right foot. Sepsis. Nonsalvageable foot. Discussed with patient need for urgent guillotine amp versus ankle disarticulation. Risk/benefits/alternatives also discussed. Patient understood and wished to proceed.
Description of procedure:
Patient was identified brought to the operating room placed on the table in supine position. After the adequate administration of anesthesia he was prepped and draped in the standard surgical fashion. A standard preoperative timeout was undertaken
and everybody was in agreement the plan. A circumferential incision was made at the distal ankle at the juncture with the foot just distal to the medial and lateral malleoli. This was done with a 10 blade. Staying with the blade, the incision was
carried through the skin and subcutaneous tissue. All tendinous structures were divided with the blade sharply and quickly. The anterior tibial artery was noted and a hemostat placed on the proximal aspect and it was transected. Similarly the
posterior tibial artery/bundle was controlled with a hemostat. I now quickly completed circumferential transection of the soft tissues with a 10 blade. Once this was completed, the foot was flexed and a plantar direction (plantarflexion) to allow
the talus to come upward and allow division of the articular surface between the distal tibia/fibula and the talus. All the tissues were transected with the 10 blade. The foot specimen was now removed. The anterior tibial and posterior tibial
vessels were ligated with silk ties as well as silk suture ligatures. An additional bleeding small branch vessel posteriorly was oversewn with a silk suture ligature. Electrocautery was then used to attain hemostasis throughout the soft tissues.
The bone surfaces were clean. There was no purulence or evidence of infection that I noted at this juncture. At this point, Betadine soaked gauze wet-to-dry dressings were placed. Walter bandage compression dressing was placed. The patient
tolerated the procedure well.
[2025-09-06 15:50] LABS: Glucose - Point of Care 93 mg/dl (70-99)
[2025-09-06] MEDS: DILAUDID 0.25 MG IV (16:04)
[2025-09-06] MEDS: ZOSYN IV (16:05)
[2025-09-06] MEDS: DILAUDID PCA 30 IV (16:22)
[2025-09-06 16:47] LABS: Hematocrit 29.1 % (39.0-52.0); Hemoglobin 9.8 g/dL (13.0-18.0); Mean Corp Hgb Conc. 33.7 g/dL (33.0-37.0); Mean Corpuscular Volume 80.4 fL (80.0-94.0); Platelet Count 152 10^3/uL (130-400); Red Cell Dist. Width 13.2 % (11.5-14.5)
[2025-09-06 17:01] LABS: Blood Urea Nitrogen 10 mg/dl (9-20); Calcium 7.5 mg/dl (8.4-10.2); Carbon Dioxide 26 mmol/L (22-30); Chloride 106 mmol/L (98-107); Estimated Creatinine Clearance > 125 ml/min; Glucose 83 mg/dl (70-99); Potassium 3.0 mmol/L (3.5-5.1); Sodium 140 mmol/L (135-145); eGFR > 60.00
[2025-09-06] MEDS: TYLENOL 650 MG PO (17:31)
[2025-09-06 17:39] LABS: Glucose - Point of Care 95 mg/dl (70-99)
[2025-09-06 18:05] LABS: Magnesium 2.0 mg/dl (1.6-2.3)
[2025-09-06 18:07] LABS: INR 1.10; PT 14.7 Sec (11.4-14.6)
[2025-09-06 18:08] LABS: APTT 27.7 Sec (23.4-35.0)
--- NOTE | 2025-09-06 18:54 | PTCARENOTE ---
Pt received from PACU s/p right foot amputation. Walter wrap C/D/I. Popliteal pulses normal. Pt expressing 8/10 pain. BOILER HOUSE MECHANIC Dilaudid per order and Tylenol PO administered. SaO2 95% on room air. Right AC #20 with BOILER HOUSE MECHANIC infusing. New Left forearm #20
started. Labs drawn, EKG captured, XR obtained per ICU protocol.
[2025-09-06] MEDS: KCL 270 MEQ IV (19:47)
[2025-09-06] MEDS: LR 1000 IV (19:47)
[2025-09-06] MEDS: DILAUDID 1 MG IV (20:07)
--- NOTE | 2025-09-06 20:19 | PTCARENOTE ---
Pt c/o pain to R foot/toes s/p amputation. x1 IVP dilaudid ordered and given. WEED CUTTER dilaudid initially with no continuous rate, 0.2mg bolus with 10minute lockout, 1.2mg max per hour. WEED CUTTER bolus increased to 0.4mg with 10minute lockout, max now 2.4mg
hourly.
[2025-09-06] MEDS: VANCOCIN 530 MG IV (20:38)
[2025-09-06 21:17] LABS: Glucose - Point of Care 365 mg/dl (70-99)
[2025-09-06] MEDS: RISPERDAL 2 MG PO (22:44)
[2025-09-06] MEDS: DESYREL 50 MG PO (22:44)
[2025-09-06] MEDS: LIPITOR 20 MG PO (22:44)
[2025-09-06 23:43] LABS: Glucose - Point of Care 384 mg/dl (70-99)
[2025-09-07] VITALS (18 sets, daily range): BP systolic 113–154; BP diastolic 51–88; BMI 29.2
[2025-09-07] MEDS: NOVOLOG FLEXPEN 10 UNITS SC ×2 (00:03→04:05)
[2025-09-07] MEDS: ZOSYN 50 IV ×4 (02:45→20:14)
[2025-09-07 04:09] LABS: Glucose - Point of Care 306 mg/dl (70-99)
[2025-09-07 04:32] LABS: Hematocrit 31.6 % (39.0-52.0); Hemoglobin 10.1 g/dL (13.0-18.0); Mean Corp Hgb Conc. 32.0 g/dL (33.0-37.0); Mean Corpuscular Volume 82.1 fL (80.0-94.0); Platelet Count 158 10^3/uL (130-400); Red Cell Dist. Width 13.5 % (11.5-14.5)
[2025-09-07 04:53] LABS: Blood Urea Nitrogen 15 mg/dl (9-20); Calcium 7.6 mg/dl (8.4-10.2); Carbon Dioxide 27 mmol/L (22-30); Chloride 108 mmol/L (98-107); Estimated Creatinine Clearance > 125 ml/min; Glucose 299 mg/dl (70-99); Potassium 3.7 mmol/L (3.5-5.1); Sodium 139 mmol/L (135-145); eGFR > 60.00
--- NOTE | 2025-09-07 05:15 | PTCARENOTE ---
Blood sugars increased overnight, 300s. PLANER CHAIN OFFBEARER made aware. Lantus given as ordered, x1 dose of 10units of novolog obtained x2, increased SSI to high resistance w/ meals.
[2025-09-07 06:06] LABS: Nucleated Red Blood Cells % 0 % (-)
--- NOTE | 2025-09-07 07:35 | CON.INTV ---
Addendum entered and electronically signed by Jonas Santos MD 09/07/25 10:52:
- Patient hemodynamically stable, saturating well on room air, not requiring any pressors
- Transferred to telemetry floor
- Stone Banker service will sign off, please call as needed
Original Note:
Consultation
Consultation Request
Date/Time Consultation Requested: 09/06/2025
Date/Time Consultation Performed: 09/07/2025
Medical History
-
Chief Complaint: Right foot wound, worsening
History of Present Illness:
Patient is a 50-year-old gentleman with known history of uncontrolled diabetes, peripheral neuropathy and chronic foot wounds who presented to the hospital on 09/05 with increased right foot swelling redness and foot drainage. Reported history of
foul-smelling pus draining from the foot. In the emergency room patient was noted to be febrile along with elevated white count and exam as well as x-ray/CT imaging was suggestive of severe cellulitis with concern for extensive subcutaneous
emphysema. Patient was evaluated by podiatry service, infectious disease service as well as vascular surgery service. Foot was not felt to be salvageable and patient taken to the OR for ankle disarticulation. Postprocedure, patient was admitted
to ICU and data security analyst consultation was requested for further input.
Past Medical History
Past Medical History: Reports Other
Additional Past Medical History:
hyperlipidemia
type 2 diabetes
neuropathy
depression/anxiety
polysubstance abuse
Past Surgical History: Reports Other
Additional Past Surgical History:
cataract implants
Social History
Tobacco: Smoker (7-8 cigarettes per day currently )
Alcohol: Former (last drink approximately 2 years ago )
Drug: Former User
Living: Other (rehab facility )
Family History
Family History: Other (Mother: uterine cancer )
Allergies / Home Medications
Allergies
Allergy/AdvReac Type Severity Reaction Status Date / Time
No Known Allergies Allergy Unverified 09/05/25 16:38
Home Medications
�Medication �Instructions �Recorded �Confirmed �Last Taken �Type
atorvastatin 20 mg tablet 20 mg PO HS High Cholesterol 09/05/25 09/05/25 09/04/25 History
dicyclomine 20 mg tablet 20 mg PO TID Gastrointestinal Issue 09/05/25 09/05/25 09/05/25 History
furosemide 20 mg tablet 20 mg PO DAILY Fluid 09/05/25 09/05/25 09/05/25 History
Retention/Swelling
gabapentin 600 mg tablet 1,200 mg PO TID Neurological 09/05/25 09/05/25 09/05/25 History
Condition
glipizide 5 mg tablet 5 mg PO DAILY Diabetes 09/05/25 09/05/25 09/05/25 History
hydroxyzine pamoate 50 mg capsule 50 mg PO TID Mental Health/Anxiety 09/05/25 09/05/25 09/05/25 History
insulin degludec 100 unit/mL (3 35 unit SC BID Diabetes 09/05/25 09/05/25 09/05/25 History
mL) subcutaneous pen
meloxicam 15 mg tablet 15 mg PO DAILY Pain 09/05/25 09/05/25 09/05/25 History
naltrexone 50 mg tablet 50 mg PO DAILY Substance abuse 09/05/25 09/05/25 09/05/25 History
disorder
pantoprazole 40 mg tablet,delayed 40 mg PO DAILY Gastrointestinal 09/05/25 09/05/25 09/05/25 History
release Issue
risperidone 2 mg tablet 2 mg PO HS Mental Health/Anxiety 09/05/25 09/05/25 09/04/25 History
sertraline 100 mg tablet 100 mg PO DAILY Depression 09/05/25 09/05/25 09/05/25 History
tamsulosin 0.4 mg capsule 0.8 mg PO DAILY Urinary Issue 09/05/25 09/05/25 09/05/25 History
trazodone 50 mg tablet 50 mg PO HS Sleep 09/05/25 09/05/25 09/04/25 History
Review of Systems
-
Hematologic/Lymphatic: Other (All 14 systems reviewed and negative except as stated above in the history of present illness.)
Vitals / Labs / Diagnostic Testing
Vital Signs
Temp Pulse Resp BP Pulse Ox
97.9 F 84 18 119/63 94
09/06/25 11:29 09/06/25 11:29 09/06/25 11:29 09/06/25 11:29 09/06/25 11:29
Microbiology
09/05/25 19:43 Foot - Right Gram Stain - Preliminary
09/05/25 21:47 Foot - Right Gram Stain - Preliminary
Diagnostic Testing:
Physical Exam
-
HEENT: Normocephalic
Cardiovascular: S1/S2
Respiratory: Clear and Non-Labored Respirations
GI: Soft and Non Distended
Neurology: Awake and Alert
Skin: Warm
General: Comfortable
Assessment
-
Patient is a 50-year-old gentleman who presented with right foot wet gangrene with sepsis, s/p right lower extremity ankle disarticulation by vascular surgery service, POD #0
#1. Right foot wet gangrene with sepsis
- Continue empiric antibiotic, IV vancomycin and Zosyn, infectious disease service on case. Preliminarily staph and gram-negative bacilli on cultures.
- Status post ankle disarticulation, follow-up on cultures
- Lactate reassuring at 1.7. Hemodynamically stable. WBC count improving. Afebrile
Continue observation following procedure
Follow neurovascular checks per protocol
Follow BP monitoring and parameters as set by primary team
Monitor on telemetry
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
RASS goal 0
No prior history of pulmonary disease
No prior PFTs for review
Encouraged IS
Diet advancement per protocol
Aspiration precautions
Cr at baseline, follow UO
Critical I/Os
Void trials
Replete electrolytes as needed
Follow temperatures/CBC
Hb and platelets postoperatively pending
DVT prophylaxis: SCDs. Defer timing for chemical prophylaxis to surgery service
Other medical diagnoses:
- DM, poorly controlled. On Glargine and Aspart with SSI. Add aspart 6 units scheduled with each meal. Consult diabetes nurse educator.
- h/o poly substance abuse.
- H/o Smoking
- h/o HCV, treated
- HLD
- BPH
Critical Care time [64] mins -- The patient is admitted for acute critical illness for the treatment of vital organ failure and/or prevention of further life-threatening conditions. Total care includes time spent in review of history, physical exam,
medications, hemodynamic/ventilator parameters, laboratory data, imaging and discussion with house staff, pharmacy, respiratory therapy, cocoa butter filter operator, and nursing
Data:
X Ray Foot 08/2025: Diffuse soft tissue swelling and subcutaneous emphysema about the foot. Prominent soft tissue defect/ulceration along the plantar lateral forefoot at the level of the fifth MTP joint. No convincing radiographic evidence for
active osteomyelitis. MRI would be of greater sensitivity.
Scattered mild osteoarthritic changes of the interphalangeal and first metatarsophalangeal joints. Moderate calcaneal enthesopathy. No acute fractures or dislocation.
CT RLE 08/2025: Extensive cellulitis throughout the foot. Large soft tissue ulceration extends close to the fifth MTP joint. While there is no definite CT evidence for osteomyelitis, given the proximity of the ulcer and extensive degree of
surrounding subcutaneous emphysema in this region, findings are suspicious for osteomyelitis/septic arthritis of the fifth MTP joint. No definite abscess. Consider MRI for further evaluation.
[2025-09-07] MEDS: VANCOCIN 530 MG IV ×2 (07:42→17:12)
--- NOTE | 2025-09-07 08:24 | PHA.VAN.FU ---
Vancomycin Assessment / Plan
- Assessment
Renal Function: Stable
WBC's are: WNL
In the past 24 hrs, patient has been: Afebrile
Concomitant Antimicrobials: piperacillin/tazobactam
- Dosing Plan
Continue: Vanc 1500mg Q12H
- Monitoring Plan
No level(s) ordered at this time: consider levels in next few days
- Follow Up
Pharmacy will continue to follow.
Vancomycin Follow UP
- -
Patient Age: 50
Patient Sex: Male
Vancomycin Day #: 3
Indication: Diabetic Foot
Requesting Provider: Eli HAIDER
Pertinent Antimicrobial Allergies:
NKDA
Height / Weight:
Height 5 ft 9 in
Actual Weight 89.5 kg
Pertinent Past Medical History: DM 2, polysubstance use disorder
- Vital Signs / Lab Results
Temp Pulse Resp BP Pulse Ox
98.4 F 62 18 122/81 95
09/07/25 03:00 09/07/25 07:00 09/07/25 07:00 09/07/25 07:00 09/07/25 07:00
Lab Results - Hematology
09/05/25 09/06/25 09/06/25
16:56 06:29 16:37
WBC 19.1 H 11.8 H 11.2 H
09/07/25
03:59
WBC 7.9
Lab Results - Chemistry
09/05/25 09/06/25 09/06/25
16:56 06:29 16:37
BUN 14 15 10
Creatinine 0.7 0.6 L 0.6 L
Estimated Creat Clear > 125 > 125
Albumin 3.5
09/07/25
03:59
BUN 15
Creatinine 0.6 L
Estimated Creat Clear > 125
Albumin
09/05/25
16:56
Lactic Acid 1.7
Microbiology Results
09/05/25 23:18 MRSA Screen - Final
Nose No Methicillin Resistant Staphylococcus aureus isolated.
09/05/25 19:43 Blood Culture - Preliminary
Blood/Venous No Growth in 24 hours- Final report to follow
09/05/25 16:56 Blood Culture - Preliminary
Blood/Venous No Growth in 24 hours- Final report to follow
09/05/25 19:43 Gram Stain - Preliminary
Foot - Right
09/05/25 21:47 Gram Stain - Preliminary
Foot - Right
[2025-09-07] MEDS: NOVOLOG FLEXPEN-HIGH RESISTANCE 4 UNITS SC (08:27)
[2025-09-07] MEDS: LANTUS 0.35 UNITS SC ×2 (08:33→23:14)
[2025-09-07] MEDS: PROTONIX 40 MG PO (08:34)
[2025-09-07] MEDS: NEURONTIN 1200 MG PO ×3 (08:34→21:51)
[2025-09-07] MEDS: FLOMAX 0.8 MG PO (08:34)
[2025-09-07] MEDS: NICODERM TRANSDERMAL 21 MG TRANSDERM (08:34)
[2025-09-07] MEDS: ZOLOFT 100 MG PO (08:35)
[2025-09-07] MEDS: BENTYL 20 MG PO ×2 (08:35→15:13)
[2025-09-07] MEDS: ATARAX 50 MG PO ×3 (08:35→21:51)
[2025-09-07 08:38] LABS: Glucose - Point of Care 234 mg/dl (70-99)
--- NOTE | 2025-09-07 09:17 | W.PN.VS ---
Addendum entered and electronically signed by Jarrett Nur III, MD 09/07/25 11:30:
This patient was seen and examined in collaboration with VITALY Jones. I agree with the history and physical exam as well as the assessment and plan.
Signed:
Jarrett Nur III, MD
Vascular Surgery
[facility]
Original Note:
Today's Communication / Plan
-
Seen and assessed with Dr. Nur
Assessment/Plan
-
Postop day 1 right ankle disarticulation
Plan:
Trapeze
I will return to change the dressing today, will add orders for daily dressing changes
Plan for BKA next week
CODING SPEC can be converted to patient's home pain medication regimen today
Will follow along
Subjective Data
-
Date of Service: September 07, 2025
Patient seen at bedside this a.m. with Dr. Nur. Patient offers no complaints at this time. No events overnight. CODING SPEC covering pain adequately
Objective Data
-
Vital Signs
Temp Pulse Resp BP Pulse Ox
97.8 F 81 25 113/51 93
09/07/25 08:33 09/07/25 08:00 09/07/25 08:00 09/07/25 08:00 09/07/25 08:39
Intake and Output
09/06/25 09/07/25 09/08/25
06:59 06:59 06:59
Intake Total 1365 / 1365 3070 / 3070
Output Total 200 / 200 550 / 550 750 / 750
Balance 1165 / 1165 -550 / 80 2320 / 2320
Intake:
Oral fluids 240 / 240 240 / 240
IV fluids (Total) 800 / 800 1400 / 1400
Lr 1,000 ml @ 100 mls/hr IV . 1400 / 1400
Q10H VANESSA Rx#:[id number]
IV piggybacks 325 / 325 1430 / 1430
Output:
Urine, Nur 550 / 550 750 / 750
Urine, Voided 200 / 200
Other:
Number of approximated MODERATE 1
amounts of urine
Lab Results
09/07/25 03:59
09/07/25 03:59
Calcium 7.6 mg/dl (8.4-10.2) L 09/07/25 03:59
Phosphorus 3.2 mg/dl (2.5-4.5) 09/06/25 16:37
Magnesium 2.0 mg/dl (1.6-2.3) 09/06/25 16:37
Total Bilirubin 0.7 mg/dl (0.2-1.3) 09/05/25 16:56
AST 32 U/L (17-59) 09/05/25 16:56
ALT 22 U/L (0-50) 09/05/25 16:56
Alkaline Phosphatase 146 U/L (38-126) H 09/05/25 16:56
Total Protein 6.7 g/dl (6.3-8.2) 09/05/25 16:56
Albumin 3.5 g/dl (3.5-5.0) 09/05/25 16:56
Physical Exam
-
AO x 3
No tachypnea on room air
No tachycardia
Abdomen soft
Right stump site dressing clean, dry, intact
[2025-09-07] MEDS: CALCIUM GLUCONATE 100 IV (10:15)
[2025-09-07] MEDS: LR 1000 IV ×2 (10:15→20:59)
--- NOTE | 2025-09-07 10:30 | PTCARENOTE ---
Rec'd care of patient at 0700. Patient alert and oriented. MAEx4. NSR on tele. Lung sounds cta. Pulse ox 94% on RA. +BS. Appetite good. Incontinent of a large loose, brown bm. CHG bath provided. Nur in place; order to remove POD#2. Right lower
extremity dressed in juan [place]go wrap; c/d/i. Pain controlled on resume specialist pump. Blood sugars remain elevated. Consult for diabetic management placed.
--- NOTE | 2025-09-07 11:12 | PTCARENOTE ---
Patient downgraded to tele level.
--- NOTE | 2025-09-07 11:57 | PN.DE.MGMTRT ---
Insulin Management
- -
09/07/2025: Diabetes Management Consult
50 year old male with PMH: Uncontrolled T2DM, Peripheral neuropathy and Chronic foot wounds who presented to the hospital on 09/05 with increased right foot swelling redness and foot drainage due to right foot wet gangrene with sepsis, s/p right
lower extremity ankle disarticulation.
Plan for BKA next week per vascular.
Was taking Lantus 35 units BID and Glipizide 5mg daily prior to admission. Pt states he was not taking the Lantus as prescribed, he was only taking it in the morning. He reports that his HS Lantus dose was discontinued while in rehab fro
polysubstance abuse due to recurrent hypoglycemia in the morning.
Glucose on admission was 393, A1C 10.8%, Cr 0.6, eGFR >60.
Current diabetes regimen include Lantus 35 units BID and NovoLog 6 units, pt to receive 1st dose at lunch time.
HOLD Lantus at HS tonight if blood sugar is <120 @ HS, given pt's report of recurrent hypoglycemia in AM
Will need to assess fasting blood sugar tomorrow morning to determine if HS Lantus is needed.
Cont NovoLog 6 units AC with low corrective and Lantus 35 units BID for now. STOP Glipizide, will not resume at discharge,.
Continue close glucose monitoring and adjust insulin dose if necessary.
Diabetes History
- -
Type of Diabetes: 2 requiring insulin
Pre-Admission Diabetes Regimen
09/06/25 09/07/25
16:37 03:59
Creatinine 0.6 L 0.6 L
Lab Results
Hemoglobin A1c 10.8 % (4.0-5.6) H 09/06/25 06:29
Insulin Pump Settings
IP Diabetes Regimen
09/06/25 09/06/25 09/06/25
11:57 15:49 16:37
Glucose 83
POC Glucose 162 H 93
09/06/25 09/06/25 09/06/25
17:28 21:05 23:31
Glucose
POC Glucose 95 365 H 384 H
09/07/25 09/07/25 09/07/25
03:57 03:59 08:23
Glucose 299 H
POC Glucose 306 H 234 H
Meal type: Breakfast
Amount consumed: 100%
Patient Education
[2025-09-07] MEDS: DILAUDID 0.5 MG IV (12:08)
[2025-09-07] MEDS: NOVOLOG FLEXPEN-HIGH RESISTANCE SC (12:33)
[2025-09-07] MEDS: NOVOLOG FLEXPEN 6 UNITS SC ×2 (12:42→16:48)
[2025-09-07 12:45] LABS: Glucose - Point of Care 169 mg/dl (70-99)
--- NOTE | 2025-09-07 13:34 | W.PN.ID1 ---
Date of Service
Date of Service: September 07, 2025
Today's Communication
Continue antibiotics. Await further culture data to guide further antimicrobial selection and potential de-escalation.
Assessment / Plan
# Wet/gas gangrene of right foot, nonsalvageable
# Leukocytosis
# Uncontrolled DM, A1c 10.8
- 09/06 s/p I+D. OR cx's pending
- S/P guillotine amp /ankle disarticulation (09/06). Tentative BKA next week
- Cultures with Staph aureus and additional GNB
Continue Vancomycin and Zosyn.
Follow wbc.
Recommend tight glucose control.
Conditions present on admission:
Diabetes mellitus type 2
Hypertension
Neuropathy
Polysubstance abuse
Depression/anxiety
Chief Complaint
-: Other (Foot gangrene)
Subjective / Review of Systems
Review of Systems: No Fever and No Chills
Vital Signs / Physical Exam
Vital Signs
Vital Signs
Temp Pulse Resp BP Pulse Ox
98.0 F 79 19 142/79 92
09/07/25 12:03 09/07/25 12:30 09/07/25 12:30 09/07/25 12:00 09/07/25 12:30
Physical Exam
Constitutional: No Acute Distress, Comfortable and Non-toxic
Eyes: Sclera Anicteric
Cardiovascular: S1/S2; Negative S3/S4
Pulmonary: Non Labored
Gastrointestinal: Soft, Non Tender and Non Distended
Genito-Urinary: Nur
Extremities: Other (Right ankle dressed in Walter wrap. No strikethrough)
Neurological: Awake and Alert
Psychological: Calm
Objective Data
Lab Data
Lab Results
09/07/25 03:59
09/07/25 03:59
PT 14.7 Sec (11.4-14.6) H 09/06/25 17:49
INR 1.10 09/06/25 17:49
APTT 27.7 Sec (23.4-35.0) 09/06/25 17:49
Estimated Creat Clear > 125 ml/min 09/07/25 03:59
Lactic Acid 1.7 mmol/L (0.7-2.0) 09/05/25 16:56
Total Bilirubin 0.7 mg/dl (0.2-1.3) 09/05/25 16:56
AST 32 U/L (17-59) 09/05/25 16:56
ALT 22 U/L (0-50) 09/05/25 16:56
Alkaline Phosphatase 146 U/L (38-126) H 09/05/25 16:56
Most recent labs reviewed.
Micro Results:
09/05/25 21:47 Anaerobic Culture - Preliminary
Foot - Right Culture pending. Anaerobic cultures are examined after 3
days incubation. Additional information to follow.
09/05/25 21:47 Wound Culture - Preliminary
Foot - Right Staphylococcus aureus
Gram Stain - Preliminary
09/05/25 19:43 Wound Culture - Preliminary
Foot - Right Gram negative bacilli
Staphylococcus aureus
Gram Stain - Preliminary
09/05/25 23:18 MRSA Screen - Final
Nose No Methicillin Resistant Staphylococcus aureus isolated.
09/05/25 19:43 Blood Culture - Preliminary
Blood/Venous No Growth in 24 hours- Final report to follow
09/05/25 16:56 Blood Culture - Preliminary
Blood/Venous No Growth in 24 hours- Final report to follow
Imaging:
09/05/25 CR RLE: Extensive cellulitis throughout the foot. Large soft tissue ulceration extends close to the fifth MTP joint. While there is no definite CT evidence for osteomyelitis, given the proximity of the ulcer and extensive degree of
surrounding subcutaneous emphysema in this region, findings are suspicious for osteomyelitis/septic arthritis of the fifth MTP joint. No definite abscess. Consider MRI for further evaluation.
--- NOTE | 2025-09-07 13:49 | W.PN.HOSP.TC ---
Today's Communication/Plan
-
IV antibiotics
Wound care
For BKA next week
Adjust analgesic regimen
Hold naltrexone
Assessment / Plan
Assessment / Plan
Impression:
Right foot gas gangrene
Concern for sepsis upon admission, ruled out without evidence of endorgan damage or systemic infection currently.
Hyponatremia secondary to hypovolemia
Hypokalemia
Other conditions
Poorly controlled diabetes
Drug use disorder, multisubstance including amphetamine, remote history of IVDA.
Tobacco use disorder
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
Treated hepatitis C.
Dyslipidemia.
BPH
Plan
Right foot gas gangrene.
Concern for sepsis on admission, ruled out, likely aborted with early antibiotic initiation.
Not salvageable with plan for staged amputation.
Status post right ankle disarticulation on 09/06
Continue broad-spectrum antibiotics including vancomycin and Zosyn pending cultures.
Plan for BKA early next week
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
Continue gabapentin
Hypokalemia
Hypovolemic hyponatremia, improved with IV fluids
Continue isotonic IV fluids with potassium baseline avoid hypotension baseline follow BMP closely.
Hold furosemide (no clear indication)
Poorly controlled IDDM.
Hemoglobin A1c 10.5.
Persistent hyperglycemia
Continue Lantus preadmission dose 35 units twice daily.
Basal bolus protocol.
Hold glipizide acutely
Cirrhosis secondary to alcohol and possibly hepatitis C./Treated hepatitis C. Currently compensated
Multisubstance use disorder.
Currently travel out of state for initiation of drug rehab.
Reports sobriety for at least over a months.
Continue preadmission regimen including, risperidone, gabapentin, sertraline, trazodone.
Hold naltrexone while on hydromorphone
Further adjustment of analgesic regimen including opioids while patient on naltrexone
Anticipated Discharge: > 48 hours
Subjective/Interval History
-
Date of Service: September 07, 2025
Objective Data
-
Labs:
Laboratory Results
09/07/25
03:59
WBC 7.9
Hgb 10.1 L
Hct 31.6 L
Plt Count 158
Sodium 139
Potassium 3.7
Chloride 108 H
Carbon Dioxide 27
BUN 15
Creatinine 0.6 L
Glucose 299 H
Calcium 7.6 L
Vital Signs:
Vital Signs
Temp Pulse Resp BP Pulse Ox
98.0 F 79 19 142/79 92
09/07/25 12:03 09/07/25 12:30 09/07/25 12:30 09/07/25 12:00 09/07/25 12:30
I&O
09/06/25 09/07/25 09/08/25
06:59 06:59 06:59
Intake Total 1365 / 1365 3670 / 3670
Output Total 200 / 200 550 / 550 1075 / 1075
Balance 1165 / 1165 -550 / 80 2595 / 2595
Physical Exam
-
General: Well Developed and No Apparent Distress
HEENT: Normocephalic, Atraumatic and Moist Mucous Membranes
Respiratory: Clear to Auscultation
Cardiac: Regular Rhythm and S1/S2; Negative Murmur, Rub or Gallop
GI: Soft, Nontender, Nondistended and Normal Bowel Sounds; Negative Organomegaly
Rectal: Deferred by Provider
Musculoskeletal: No Clubbing, No Cyanosis and No Edema
Skin: Negative Rash
Neuro: Nonfocal/Grossly Intact
[2025-09-07] MEDS: DILAUDID 0.75 MG IV ×4 (14:08→23:14)
--- NOTE | 2025-09-07 14:34 | CM ---
Wet gangrene right foot, Sepsis. POD #1 Right ankle disarticulation. IV/Zosyn. R BKA next week. Discharge POC: TBD.
--- NOTE | 2025-09-07 16:11 | W.PN.UPDATE ---
Update Note
Progress Note Update
Dressing changed at bedside, site c/d/i, scant ooze. Re-dressed. Pt tolerated well.
[2025-09-07] MEDS: NOVOLOG FLEXPEN-MODERATE RESISTANCE 5 UNITS SC (16:47)
[2025-09-07 17:01] LABS: Glucose - Point of Care 268 mg/dl (70-99)
[2025-09-07] MEDS: ROXICODONE 5 MG PO (20:59)
[2025-09-07] MEDS: RISPERDAL 2 MG PO (21:51)
[2025-09-07] MEDS: LIPITOR 20 MG PO (21:51)
[2025-09-07] MEDS: DESYREL 50 MG PO (21:51)
[2025-09-07 22:06] LABS: Glucose - Point of Care 246 mg/dl (70-99)
[2025-09-07] MEDS: BENTYL PO (23:08)
[2025-09-08] VITALS: BP 146/71
--- NOTE | 2025-09-08 00:43 | PTCARENOTE ---
Pt received from ICU to rm [id number]. Pt oriented to room and call putnam.
[2025-09-08 00:59] VITALS: BP 151/73
[2025-09-08] MEDS: ZOSYN 50 IV ×4 (01:14→20:00)
[2025-09-08] MEDS: DILAUDID 0.75 MG IV ×6 (02:14→19:55)
[2025-09-08 04:03] VITALS: BP 137/66
[2025-09-08] MEDS: VANCOCIN 530 MG IV ×2 (05:16→17:25)
[2025-09-08 07:14] LABS: Hematocrit 28.7 % (39.0-52.0); Hemoglobin 9.3 g/dL (13.0-18.0); Mean Corp Hgb Conc. 32.4 g/dL (33.0-37.0); Mean Corpuscular Volume 81.5 fL (80.0-94.0); Platelet Count 171 10^3/uL (130-400); Red Cell Dist. Width 13.4 % (11.5-14.5)
[2025-09-08 07:26] LABS: Blood Urea Nitrogen 12 mg/dl (9-20); Calcium 7.3 mg/dl (8.4-10.2); Carbon Dioxide 29 mmol/L (22-30); Chloride 108 mmol/L (98-107); Estimated Creatinine Clearance 123 ml/min; Glucose 68 mg/dl (70-99); Potassium 2.9 mmol/L (3.5-5.1); Sodium 143 mmol/L (135-145); eGFR > 60.00
[2025-09-08 07:40] VITALS: BP 151/76
[2025-09-08 08:08] LABS: Nucleated Red Blood Cells % 0.3 % (-)
--- NOTE | 2025-09-08 08:36 | W.PN.HOSP.TC ---
Today's Communication/Plan
-
Diarrhea�check stool studies
Replete K
Continue antibiotics
Assessment / Plan
Assessment / Plan
50M with DM, polysubstance abuse, tobacco use, cirrhosis, HLD, BPH, P/W right foot gas gangrene.
Right foot gas gangrene
Concern for sepsis on admission, ruled out, likely aborted with early antibiotic initiation.
Not salvageable with plan for staged amputation.
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
Wound culture with presumptive Staph aureus and Citrobacter
Continue broad-spectrum antibiotics including vancomycin and Zosyn pending final cultures.
Plan for BKA early next week
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
Continue gabapentin
Hypokalemia
Replete with oral potassium
Poorly controlled IDDM
Hemoglobin A1c 10.5%
Persistent hyperglycemia, hypoglycemic episode last night
Continue Lantus preadmission dose 35 units twice daily.
SSI
Hold glipizide acutely
Cirrhosis
secondary to alcohol and possibly hepatitis C./Treated hepatitis C. Currently compensated
Diarrhea
Could be secondary to antibiotic, check stool studies to rule out C. difficile
Multisubstance use disorder
Currently travel out of state for initiation of drug rehab.
Reports sobriety for at least over a months.
Continue preadmission regimen including, risperidone, gabapentin, sertraline, trazodone.
Hold naltrexone while on hydromorphone
Further adjustment of analgesic regimen including opioids while patient on naltrexone
DVT ppx
Lovenox
Anticipated Discharge: > 48 hours
Subjective/Interval History
-
Date of Service: September 08, 2025
Patient having some pain, relieved with oral pain medication. Also having diarrhea, liquid stool starting last night.
Objective Data
-
Labs:
Laboratory Results
10/18/25
06:34
WBC 6.3
Hgb 9.3 L
Hct 28.7 L
Plt Count 171
Sodium 143
Potassium 2.9 L
Chloride 108 H
Carbon Dioxide 29
BUN 12
Creatinine 0.7
Glucose 68 L
Calcium 7.3 L
Vital Signs:
Vital Signs
Temp Pulse Resp BP Pulse Ox
98 F 70 16 151/76 93
09/08/25 07:40 09/08/25 07:40 09/08/25 07:40 09/08/25 07:40 09/08/25 07:40
I&O
09/07/25 09/08/25 09/09/25
06:59 06:59 06:59
Intake Total 5880 / 5880
Output Total 550 / 550 1900 / 1900
Balance -550 / 80 3980 / 3980
Review of Systems
-
All other systems: Reviewed and negative
Physical Exam
-
General: No Apparent Distress
HEENT: Moist Mucous Membranes, Anicteric and PERRLA
Respiratory: Clear to Auscultation; Negative Wheezes, Rales or Rhonchi
Cardiac: Regular Rhythm and S1/S2; Negative Murmur, Rub or Gallop
GI: Soft, Nontender, Nondistended and Normal Bowel Sounds
Musculoskeletal: Other (LLE in dressing)
Skin: Warm and Dry; Negative Rash, Ulcers or Lesions
Neuro: Awake and AO x 3
Hematologic / Lymphatic: No Lymphadenopathy
Psych: Calm
Data Reviewed
-
Labs: Labs Reviewed by me and Discussed with Patient
[2025-09-08 08:39] LABS: Glucose - Point of Care 79 mg/dl (70-99)
[2025-09-08] MEDS: ATARAX 50 MG PO ×3 (08:43→22:53)
[2025-09-08] MEDS: ZOLOFT 100 MG PO (08:43)
[2025-09-08] MEDS: PROTONIX 40 MG PO (08:43)
[2025-09-08] MEDS: FLOMAX 0.8 MG PO (08:43)
[2025-09-08] MEDS: BENTYL 20 MG PO ×3 (08:43→21:40)
[2025-09-08] MEDS: NICODERM TRANSDERMAL 21 MG TRANSDERM (08:43)
[2025-09-08] MEDS: NEURONTIN 1200 MG PO ×3 (08:43→21:39)
[2025-09-08] MEDS: LR 1000 IV (08:52)
[2025-09-08 09:30] LABS: Glucose - Point of Care 89 mg/dl (70-99)
[2025-09-08] MEDS: KCL 40 MEQ PO (09:43)
[2025-09-08] MEDS: NOVOLOG FLEXPEN-MODERATE RESISTANCE SC ×2 (09:43→14:09)
[2025-09-08] MEDS: NOVOLOG FLEXPEN 6 UNITS SC ×3 (09:43→17:26)
[2025-09-08] MEDS: LANTUS 0.35 UNITS SC ×2 (09:52→21:40)
[2025-09-08] MEDS: ROXICODONE 5 MG PO ×3 (10:50→21:40)
[2025-09-08 11:00] VITALS: BP 139/72
[2025-09-08 12:35] LABS: Glucose - Point of Care 139 mg/dl (70-99)
--- NOTE | 2025-09-08 14:17 | PHA.VAN.FU ---
Vancomycin Assessment / Plan
- Assessment
Renal Function: Stable
WBC's are: WNL
In the past 24 hrs, patient has been: Afebrile
Concomitant Antimicrobials: piperacillin/tazobactam
- Dosing Plan
Continue: Vanc 1500mg Q12H
- Monitoring Plan
Peak Level: 09/08 21:30
Trough Level: 09/09 05:30
Monitoring Comments: levels to be drawn after 5th dose of current regimen
- Follow Up
Pharmacy will continue to follow.
Vancomycin Follow UP
- -
Patient Age: 50
Patient Sex: Male
Vancomycin Day #: 4
Indication: Diabetic Foot
Requesting Provider: Eli HAIDER / Dr. Westbrook
Pertinent Antimicrobial Allergies:
NKDA
Height / Weight:
Height 5 ft 9 in
Actual Weight 89.5 kg
Pertinent Past Medical History: DM 2, polysubstance use disorder
- Vital Signs / Lab Results
Temp Pulse Resp BP Pulse Ox
97.6 F 82 16 139/72 93
09/08/25 11:00 09/08/25 11:00 09/08/25 11:00 09/08/25 11:00 09/08/25 11:00
Lab Results - Hematology
09/05/25 09/06/25 09/06/25
16:56 06:29 16:37
WBC 19.1 H 11.8 H 11.2 H
09/07/25 09/08/25
03:59 06:34
WBC 7.9 6.3
Lab Results - Chemistry
09/05/25 09/06/25 09/06/25
16:56 06:29 16:37
BUN 14 15 10
Creatinine 0.7 0.6 L 0.6 L
Estimated Creat Clear > 125 > 125
Albumin 3.5
09/07/25 09/08/25
03:59 06:34
BUN 15 12
Creatinine 0.6 L 0.7
Estimated Creat Clear > 125 123
Albumin
09/05/25
16:56
Lactic Acid 1.7
Microbiology Results
09/05/25 19:43 Wound Culture - Preliminary
Foot - Right Citrobacter freundii
Staphylococcus aureus
Gram Stain - Preliminary
09/05/25 19:43 Blood Culture - Preliminary
Blood/Venous No Growth in 48 hours- Final report to follow
09/05/25 16:56 Blood Culture - Preliminary
Blood/Venous No Growth in 48 hours- Final report to follow
09/05/25 21:47 Anaerobic Culture - Preliminary
Foot - Right Culture pending. Anaerobic cultures are examined after 3
days incubation. Additional information to follow.
09/05/25 21:47 Wound Culture - Preliminary
Foot - Right Staphylococcus aureus
Gram Stain - Preliminary
09/05/25 23:18 MRSA Screen - Final
Nose No Methicillin Resistant Staphylococcus aureus isolated.
[2025-09-08 16:48] LABS: Glucose - Point of Care 167 mg/dl (70-99)
[2025-09-08] MEDS: LOVENOX 40 MG SC (17:26)
[2025-09-08] MEDS: NOVOLOG FLEXPEN-MODERATE RESISTANCE 1 UNITS SC (17:26)
[2025-09-08 21:13] LABS: Glucose - Point of Care 259 mg/dl (70-99)
[2025-09-08 21:37] VITALS: BP 167/98
[2025-09-08] MEDS: RISPERDAL 2 MG PO (21:39)
[2025-09-08] MEDS: LIPITOR 20 MG PO (21:40)
[2025-09-08] MEDS: DESYREL 50 MG PO (22:53)
[2025-09-09] MEDS: ZOSYN 50 IV ×3 (02:16→13:55)
[2025-09-09] MEDS: VANCOCIN 530 MG IV (05:25)
[2025-09-09] MEDS: DILAUDID 0.75 MG IV ×4 (06:00→21:59)
--- NOTE | 2025-09-09 06:55 | PHA.VAN.FU ---
Vancomycin Assessment / Plan
- Assessment
In the past 24 hrs, patient has been: Afebrile
Concomitant Antimicrobials: piperacillin/tazobactam
- Assessment - Therapeutic Drug Monitoring
Extrapolated Cmax (mcg/mL): 24.8
Peak level was drawn: Appropriately (drawn ~2.4H after end of previous infusion)
Extrapolated Cmin (mcg/mL): 7.7
Trough Drawn: Appropriately
Levels were drawn: At steady state (levels darwn after 5th maintenance dose)
Calculated AUC (mcg*h/mL): 355
Calculated ke: 0.1115
Calculated half life (H): 6.2
Calculated Vd (L): 76 (~0.8 L/kg)
Calculated Vanc CL (ml/min): 140
- Dosing Plan
Adjust Regimen to: Vanc 1750mg Q12H
New Regimen Predicts: AUC (462), Peak (31.4), Trough (10.3)
- Monitoring Plan
No level(s) ordered at this time: consider levels in next few days
- Follow Up
Pharmacy will continue to follow.
Vancomycin Follow UP
- -
Patient Age: 50
Patient Sex: Male
Vancomycin Day #: 5
Indication: Diabetic Foot
Requesting Provider: Eli HAIDER / Dr. Westbrook
Pertinent Antimicrobial Allergies:
NKDA
Height / Weight:
Height 5 ft 9 in
Actual Weight 89.5 kg
Pertinent Past Medical History: DM 2, polysubstance use disorder
- Vital Signs / Lab Results
Temp Pulse Resp BP Pulse Ox
98.2 F 92 16 167/98 96
09/08/25 21:37 09/08/25 21:37 09/08/25 21:37 09/08/25 21:37 09/08/25 21:37
Lab Results - Hematology
09/06/25 09/06/25 09/07/25
06:29 16:37 03:59
WBC 11.8 H 11.2 H 7.9
09/08/25
06:34
WBC 6.3
Lab Results - Chemistry
09/06/25 09/06/25 09/07/25
06:29 16:37 03:59
BUN 15 10 15
Creatinine 0.6 L 0.6 L 0.6 L
Estimated Creat Clear > 125 > 125 > 125
09/08/25
06:34
BUN 12
Creatinine 0.7
Estimated Creat Clear 123
Microbiology Results
09/05/25 19:43 Blood Culture - Preliminary
Blood/Venous No Growth in 72 hours- Final report to follow
09/05/25 16:56 Blood Culture - Preliminary
Blood/Venous No Growth in 72 hours- Final report to follow
09/05/25 19:43 Wound Culture - Preliminary
Foot - Right Citrobacter freundii
Staphylococcus aureus
Gram Stain - Preliminary
09/05/25 21:47 Anaerobic Culture - Preliminary
Foot - Right Culture pending. Anaerobic cultures are examined after 3
days incubation. Additional information to follow.
09/05/25 21:47 Wound Culture - Preliminary
Foot - Right Staphylococcus aureus
Gram Stain - Preliminary
09/05/25 23:18 MRSA Screen - Final
Nose No Methicillin Resistant Staphylococcus aureus isolated.
Therapeutic Drug Monitoring
Vancomycin Peak 19.0 ug/ml (18-26) 09/08/25 21:18
Vancomycin Trough 7.6 ug/ml (5-20) 09/09/25 05:31
[2025-09-09 07:30] VITALS: BP 151/80
[2025-09-09 08:09] LABS: Glucose - Point of Care 72 mg/dl (70-99)
[2025-09-09 08:26] LABS: Blood Urea Nitrogen 8 mg/dl (9-20); Estimated Creatinine Clearance > 125 ml/min
[2025-09-09] MEDS: NOVOLOG FLEXPEN 6 UNITS SC ×3 (08:28→17:25)
[2025-09-09] MEDS: NOVOLOG FLEXPEN-MODERATE RESISTANCE SC (08:28)
[2025-09-09] MEDS: ZOLOFT 100 MG PO (08:29)
[2025-09-09] MEDS: NEURONTIN 1200 MG PO ×3 (08:29→21:27)
[2025-09-09] MEDS: BENTYL 20 MG PO ×3 (08:29→21:29)
[2025-09-09] MEDS: FLOMAX 0.8 MG PO (08:29)
[2025-09-09] MEDS: NICODERM TRANSDERMAL 21 MG TRANSDERM (08:30)
[2025-09-09] MEDS: ATARAX 50 MG PO ×3 (08:30→23:39)
[2025-09-09] MEDS: PROTONIX 40 MG PO (08:30)
[2025-09-09] MEDS: LANTUS 0.35 UNITS SC ×2 (08:32→21:29)
[2025-09-09] MEDS: ROXICODONE 5 MG PO ×2 (08:34→20:36)
--- NOTE | 2025-09-09 09:09 | CM ---
CM reviewed chart, care ongoing.
Patient remains on IV antibiotics.
Plan for BKA early next week.
Will need PT/OT post op to determine level of care.
Patient from [facility]- will not be able to return due to level of care requirements.
CM will continue to follow.
Plan; BKA next week
[2025-09-09 09:55] LABS: Calcium 7.8 mg/dl (8.4-10.2); Carbon Dioxide 29 mmol/L (22-30); Chloride 107 mmol/L (98-107); Glucose 66 mg/dl (70-99); Potassium 3.5 mmol/L (3.5-5.1); Sodium 139 mmol/L (135-145)
[2025-09-09 09:58] LABS: Hematocrit 30.7 % (39.0-52.0); Hemoglobin 9.7 g/dL (13.0-18.0); Mean Corp Hgb Conc. 31.6 g/dL (33.0-37.0); Mean Corpuscular Volume 80.8 fL (80.0-94.0); Platelet Count 192 10^3/uL (130-400); Red Cell Dist. Width 13.4 % (11.5-14.5)
[2025-09-09 11:43] LABS: Glucose - Point of Care 186 mg/dl (70-99)
[2025-09-09] MEDS: NOVOLOG FLEXPEN-MODERATE RESISTANCE 1 UNITS SC (12:00)
[2025-09-09 13:37] LABS: Nucleated Red Blood Cells % 0 % (-)
--- NOTE | 2025-09-09 14:07 | W.PN.HOSP.TC ---
Today's Communication/Plan
-
BKA planned for this week
Assessment / Plan
Assessment / Plan
50M with DM, polysubstance abuse, tobacco use, cirrhosis, HLD, BPH, P/W right foot gas gangrene.
Right foot gas gangrene
Concern for sepsis on admission, ruled out, likely aborted with early antibiotic initiation.
Not salvageable with plan for staged amputation.
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
Wound culture with presumptive Staph aureus and Citrobacter
Continue broad-spectrum antibiotics including vancomycin and Zosyn pending final cultures. Consider changing Zosyn to ceftriaxone, will defer to ID.
Plan for BKA early this week
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
Continue gabapentin
Hypokalemia�resolved
Repleted with oral potassium
Poorly controlled IDDM
Hemoglobin A1c 10.5%
Persistent hyperglycemia, hypoglycemic episode last night
Continue Lantus preadmission dose 35 units twice daily.
SSI
Hold glipizide acutely
Cirrhosis
secondary to alcohol and possibly hepatitis C./Treated hepatitis C. Currently compensated
Diarrhea
Could be secondary to antibiotic, consider changing Zosyn to ceftriaxone, will defer to ID
ruled out C. difficile
Other stool studies still pending
Loperamide
Multisubstance use disorder
Currently travel out of state for initiation of drug rehab.
Reports sobriety for at least over a months.
Continue preadmission regimen including, risperidone, gabapentin, sertraline, trazodone.
Hold naltrexone while on hydromorphone
Further adjustment of analgesic regimen including opioids while patient on naltrexone
DVT ppx
Lovenox
Anticipated Discharge: > 48 hours
Subjective/Interval History
-
Date of Service: September 09, 2025
Still with significant diarrhea. Pain in foot still.
Objective Data
-
Labs:
Laboratory Results
09/09/25 09/09/25
07:12 08:48
WBC 6.1
Hgb 9.7 L
Hct 30.7 L
Plt Count 192
Sodium 139 Cancelled
Potassium 3.5 Cancelled
Chloride 107 Cancelled
Carbon Dioxide 29 Cancelled
BUN 8 L Cancelled
Creatinine 0.6 L Cancelled
Glucose 66 L Cancelled
Calcium 7.8 L Cancelled
Vital Signs:
Vital Signs
Temp Pulse Resp BP Pulse Ox
97.3 F 81 14 151/80 93
09/09/25 07:30 09/09/25 07:30 09/09/25 07:30 09/09/25 07:30 09/09/25 07:30
I&O
09/08/25 09/09/25 09/10/25
06:59 06:59 06:59
Intake Total 5880 / 5880 1040 / 1040
Output Total 1900 / 1900 2100 / 2100
Balance 3980 / 3980 -1060 / -1060
Review of Systems
-
All other systems: Reviewed and negative
Physical Exam
-
General: No Apparent Distress
HEENT: Moist Mucous Membranes, Anicteric and PERRLA
Respiratory: Clear to Auscultation; Negative Wheezes, Rales or Rhonchi
Cardiac: Regular Rhythm and S1/S2; Negative Murmur, Rub or Gallop
GI: Soft, Nontender, Nondistended and Normal Bowel Sounds
Musculoskeletal: Other (LLE in dressing)
Skin: Warm and Dry; Negative Rash, Ulcers or Lesions
Neuro: Awake and AO x 3
Hematologic / Lymphatic: No Lymphadenopathy
Psych: Calm
Data Reviewed
-
Labs: Labs Reviewed by me and Discussed with Patient
[2025-09-09 15:00] VITALS: BP 132/72
[2025-09-09 16:37] LABS: Glucose - Point of Care 246 mg/dl (70-99)
[2025-09-09] MEDS: NOVOLOG FLEXPEN-MODERATE RESISTANCE 3 UNITS SC (17:25)
[2025-09-09] MEDS: LOVENOX 40 MG SC (17:26)
[2025-09-09] MEDS: ROCEPHIN 1000 MG IV (17:29)
[2025-09-09] MEDS: VANCOCIN 535 MG IV (17:29)
[2025-09-09] MEDS: STERILE WATER FOR INJECTION 10 ML IV (17:29)
[2025-09-09 21:19] LABS: Glucose - Point of Care 234 mg/dl (70-99)
[2025-09-09] MEDS: RISPERDAL 2 MG PO (21:27)
[2025-09-09] MEDS: LIPITOR 20 MG PO (21:27)
[2025-09-09 23:00] VITALS: BP 158/78
[2025-09-09] MEDS: DESYREL 50 MG PO (23:39)
[2025-09-10] MEDS: DILAUDID 0.75 MG IV ×4 (04:55→20:39)
[2025-09-10] MEDS: VANCOCIN 535 MG IV ×2 (04:58→17:25)
[2025-09-10 06:59] LABS: Glucose - Point of Care 138 mg/dl (70-99)
[2025-09-10 07:37] VITALS: BP 138/68
--- NOTE | 2025-09-10 07:41 | PN.DE.MGMTRT ---
Insulin Management
- -
09/10/2025: Diabetes Management Follow up
50 year old male with PMH: Uncontrolled T2DM, Peripheral neuropathy and Chronic foot wounds who presented to the hospital on 09/05 with increased right foot swelling redness and foot drainage due to right foot wet gangrene with sepsis, s/p right
lower extremity ankle disarticulation.
Plan for BKA next week per vascular. Was taking Lantus 35 units BID and Glipizide 5mg daily prior to admission.
Pt states he was not taking the Lantus as prescribed, he was only taking it in the morning. He reports that his HS Lantus dose was discontinued due to recurrent hypoglycemia in the morning while in rehab for polysubstance abuse. Glucose on admission
was 393, A1C 10.8%, Cr 0.6, eGFR >60.
Patient awake, alert, oriented, resting in bed, offers no complaints, able to discuss diabetes care plan
Plan for RBKA this week. Current diabetes regimen include Lantus 35 units BID, NovoLog 6 units and corrective insulin.
Glucose stable w/o hypoglycemia. Premeal 72 to 246. HS glucose was 234, received Lantus 35 units, fasting 138 POC this AM.
Will make no changes to current regimen: Lantus 35 units BID, NovoLog 6 units AC and low corrective insulin with meals.
STOP Glipizide, will not resume at discharge,.
Continue close glucose monitoring and adjust insulin dose if necessary.
Diabetes History
- -
Type of Diabetes: 2 requiring insulin
Pre-Admission Diabetes Regimen
09/09/25 09/09/25
07:12 08:48
Creatinine 0.6 L Cancelled
Lab Results
Hemoglobin A1c 10.8 % (4.0-5.6) H 09/06/25 06:29
Insulin Pump Settings
IP Diabetes Regimen
09/09/25 09/09/25 09/09/25
07:12 08:08 08:48
Glucose 66 L Cancelled
POC Glucose 72
09/09/25 09/09/25 09/09/25
11:41 16:35 21:17
Glucose
POC Glucose 186 H 246 H 234 H
09/10/25
06:58
Glucose
POC Glucose 138 H
Patient Education
[2025-09-10] MEDS: NOVOLOG FLEXPEN-MODERATE RESISTANCE SC (07:51)
[2025-09-10] MEDS: NEURONTIN 1200 MG PO ×3 (07:52→22:16)
[2025-09-10] MEDS: ROXICODONE 5 MG PO ×3 (07:52→22:16)
[2025-09-10] MEDS: NICODERM TRANSDERMAL 21 MG TRANSDERM (07:53)
[2025-09-10] MEDS: ZOLOFT 100 MG PO (07:53)
[2025-09-10] MEDS: ATARAX 50 MG PO ×3 (07:54→22:17)
[2025-09-10] MEDS: PROTONIX 40 MG PO (07:54)
[2025-09-10] MEDS: LANTUS 0.35 UNITS SC ×2 (07:54→22:18)
[2025-09-10] MEDS: FLOMAX 0.8 MG PO (07:54)
[2025-09-10] MEDS: BENTYL 20 MG PO ×3 (07:54→22:17)
[2025-09-10] MEDS: NOVOLOG FLEXPEN 6 UNITS SC ×3 (09:15→17:24)
[2025-09-10 09:17] LABS: Hematocrit 32.0 % (39.0-52.0); Hemoglobin 10.0 g/dL (13.0-18.0); Mean Corp Hgb Conc. 31.3 g/dL (33.0-37.0); Mean Corpuscular Volume 82.3 fL (80.0-94.0); Nucleated Red Blood Cells % 0 % (-); Platelet Count 208 10^3/uL (130-400); Red Cell Dist. Width 13.4 % (11.5-14.5)
[2025-09-10 10:04] LABS: Blood Urea Nitrogen 9 mg/dl (9-20); Calcium 7.9 mg/dl (8.4-10.2); Carbon Dioxide 32 mmol/L (22-30); Chloride 106 mmol/L (98-107); Estimated Creatinine Clearance > 125 ml/min; Glucose 115 mg/dl (70-99); Potassium 4.1 mmol/L (3.5-5.1); Sodium 141 mmol/L (135-145); eGFR > 60.00
--- NOTE | 2025-09-10 10:29 | PHA.VAN.FU ---
Vancomycin Assessment / Plan
- Assessment
Renal Function: Stable
WBC's are: Stable
In the past 24 hrs, patient has been: Afebrile
Concomitant Antimicrobials: Ceftriaxone 1 gram IV q24h
- Dosing Plan
Continue: Vancomycin 1750 mg IV q12h
- Monitoring Plan
No level(s) ordered at this time: Consider levels in a few days
- Follow Up
Pharmacy will continue to follow.
Vancomycin Follow UP
- -
Patient Age: 50
Patient Sex: Male
Vancomycin Day #: 6
Indication: Diabetic Foot
Requesting Provider: Eli HAIDER / Dr. Westbrook
Pertinent Antimicrobial Allergies:
NKDA
Height / Weight:
Height 5 ft 9 in
Actual Weight 89.5 kg
Pertinent Past Medical History: DM 2, polysubstance use disorder
- Vital Signs / Lab Results
Temp Pulse Resp BP Pulse Ox
98.4 F 88 17 138/68 95
09/10/25 07:37 09/10/25 07:37 09/10/25 07:37 09/10/25 07:37 09/10/25 07:37
Lab Results - Hematology
09/08/25 09/09/25 09/10/25
06:34 07:12 08:51
WBC 6.3 6.1 7.6
Lab Results - Chemistry
09/08/25 09/09/25 09/09/25
06:34 07:12 08:48
BUN 12 8 L Cancelled
Creatinine 0.7 0.6 L Cancelled
Estimated Creat Clear 123 > 125 Cancelled
09/10/25
08:51
BUN 9
Creatinine 0.6 L
Estimated Creat Clear > 125
Microbiology Results
09/08/25 20:40 Shiga Toxin Test - Final
Feces/Stool No E. coli Shiga Toxin 1 or 2 detected.
09/05/25 21:47 Wound Culture - Preliminary
Foot - Right Staph aureus MRSA
Gram Stain - Preliminary
09/05/25 19:43 Wound Culture - Final
Foot - Right Citrobacter freundii
Staph aureus MRSA
Gram Stain - Final
09/05/25 21:47 Anaerobic Culture - Preliminary
Foot - Right Culture pending. Anaerobic cultures are examined after 3
days incubation. Additional information to follow.
09/05/25 19:43 Blood Culture - Preliminary
Blood/Venous No Growth in 4 days- Final report to follow
09/05/25 16:56 Blood Culture - Preliminary
Blood/Venous No Growth in 4 days- Final report to follow
09/08/25 20:40 Stool Leukocytes - Final
Feces/Stool
09/08/25 20:40 Cryptosporidium/Giardia - Final
Feces/Stool Negative for Cryptosporidium and/or Giardia Lamblia
antigens.
C. difficile GDH Antigen & Toxins - Final
Negative for toxigenic C.difficile
Therapeutic Drug Monitoring
Vancomycin Peak 19.0 ug/ml (18-26) 09/08/25 21:18
Vancomycin Trough 7.6 ug/ml (5-20) 09/09/25 05:31
[2025-09-10 11:11] LABS: Glucose - Point of Care 187 mg/dl (70-99)
[2025-09-10] MEDS: NOVOLOG FLEXPEN-MODERATE RESISTANCE 1 UNITS SC (11:55)
--- NOTE | 2025-09-10 14:56 | W.PN.ID1 ---
Date of Service
Date of Service: September 10, 2025
Today's Communication
Continue abx.
Assessment / Plan
# Wet/gas gangrene of right foot, nonsalvageable
# Leukocytosis
# Uncontrolled DM, A1c 10.8
- 09/06 s/p I+D. OR cx's pending
- S/P guillotine amp /ankle disarticulation (09/06). Tentative BKA this week.
- Cultures with Staph aureus and Citrobacter.
Pt with diarrhea. Zosyn -> Rocephin. Follow for improvement.
Continue Vancomycin and Rocephin.
Follow wbc.
Tight glucose control.
Conditions present on admission:
Diabetes mellitus type 2
Hypertension
Neuropathy
Polysubstance abuse
Depression/anxiety
Chief Complaint
-: Other (Foot gangrene)
Subjective / Review of Systems
Review of Systems: No Fever and No Chills
Vital Signs / Physical Exam
Vital Signs
Vital Signs
Temp Pulse Resp BP Pulse Ox
98.4 F 88 17 138/68 95
09/10/25 07:37 09/10/25 07:37 09/10/25 07:37 09/10/25 07:37 09/10/25 07:37
Physical Exam
Constitutional: No Acute Distress and Comfortable
Eyes: Sclera Anicteric
Cardiovascular: S1/S2; Negative S3/S4
Pulmonary: Non Labored
Gastrointestinal: Soft, Non Tender and Non Distended
Genito-Urinary: Nur
Extremities: Other (Right ankle dressed in Walter wrap. No strikethrough)
Neurological: Awake and Alert
Psychological: Calm
Objective Data
Lab Data
Lab Results
09/10/25 08:51
09/10/25 08:51
PT 14.7 Sec (11.4-14.6) H 09/06/25 17:49
INR 1.10 09/06/25 17:49
APTT 27.7 Sec (23.4-35.0) 09/06/25 17:49
Estimated Creat Clear > 125 ml/min 09/10/25 08:51
Lactic Acid 1.7 mmol/L (0.7-2.0) 09/05/25 16:56
Total Bilirubin 0.7 mg/dl (0.2-1.3) 09/05/25 16:56
AST 32 U/L (17-59) 09/05/25 16:56
ALT 22 U/L (0-50) 09/05/25 16:56
Alkaline Phosphatase 146 U/L (38-126) H 09/05/25 16:56
Most recent labs reviewed.
Micro Results:
09/08/25 20:40 Salmonella/Shigella Culture - Preliminary
Feces/Stool Culture in Progress
Campylobacter Culture - Preliminary
Culture in Progress
Shiga Toxin Test - Final
No E. coli Shiga Toxin 1 or 2 detected.
09/05/25 21:47 Wound Culture - Preliminary
Foot - Right Staph aureus MRSA
Gram Stain - Preliminary
09/05/25 19:43 Wound Culture - Final
Foot - Right Citrobacter freundii
Staph aureus MRSA
Gram Stain - Final
09/05/25 21:47 Anaerobic Culture - Preliminary
Foot - Right Culture pending. Anaerobic cultures are examined after 3
days incubation. Additional information to follow.
09/05/25 19:43 Blood Culture - Preliminary
Blood/Venous No Growth in 4 days- Final report to follow
09/05/25 16:56 Blood Culture - Preliminary
Blood/Venous No Growth in 4 days- Final report to follow
09/08/25 20:40 Stool Leukocytes - Final
Feces/Stool
09/08/25 20:40 Cryptosporidium/Giardia - Final
Feces/Stool Negative for Cryptosporidium and/or Giardia Lamblia
antigens.
C. difficile GDH Antigen & Toxins - Final
Negative for toxigenic C.difficile
09/05/25 23:18 MRSA Screen - Final
Nose No Methicillin Resistant Staphylococcus aureus isolated.
Imaging:
09/05/25 CR RLE: Extensive cellulitis throughout the foot. Large soft tissue ulceration extends close to the fifth MTP joint. While there is no definite CT evidence for osteomyelitis, given the proximity of the ulcer and extensive degree of
surrounding subcutaneous emphysema in this region, findings are suspicious for osteomyelitis/septic arthritis of the fifth MTP joint. No definite abscess. Consider MRI for further evaluation.
[2025-09-10 15:34] VITALS: BP 152/75
--- NOTE | 2025-09-10 15:38 | W.PN.HOSP.TC ---
Today's Communication/Plan
-
BKA with vascular surgery
Assessment / Plan
Assessment / Plan
50M with DM, polysubstance abuse, tobacco use, cirrhosis, HLD, BPH, P/W right foot gas gangrene.
NAD
Scleral Anicteric
MMM
No JVD
CTABL
RRR, S1/S2
Soft, NT, ND, BS+
Warm, Dry
Right ankle and below amputation
AAOx3
Calm
Right foot gas gangrene
Concern for sepsis on admission, ruled out, likely aborted with early antibiotic initiation.
Not salvageable with plan for staged amputation.
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
Wound culture with presumptive Staph aureus and Citrobacter
Continue broad-spectrum antibiotics including vancomycin and Zosyn pending final cultures. Consider changing Zosyn to ceftriaxone, will defer to ID.
Plan for BKA early this week
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
Continue gabapentin
Hypokalemia�resolved
Repleted with oral potassium
Poorly controlled IDDM
Hemoglobin A1c 10.5%
Persistent hyperglycemia, hypoglycemic episode last night
Continue Lantus preadmission dose 35 units twice daily.
SSI
Hold glipizide acutely
Cirrhosis
secondary to alcohol and possibly hepatitis C./Treated hepatitis C. Currently compensated
Diarrhea
Could be secondary to antibiotic, consider changing Zosyn to ceftriaxone, will defer to ID
ruled out C. difficile
Other stool studies still pending
Loperamide
Multisubstance use disorder
Currently travel out of state for initiation of drug rehab.
Reports sobriety for at least over a months.
Continue preadmission regimen including, risperidone, gabapentin, sertraline, trazodone.
Hold naltrexone while on hydromorphone
Further adjustment of analgesic regimen including opioids while patient on naltrexone
DVT ppx
Lovenox
Anticipated Discharge: > 48 hours
Subjective/Interval History
-
Date of Service: September 10, 2025
Seen examined. No new complaints. No acute overnight events.
Objective Data
-
Labs:
Laboratory Results
09/10/25
08:51
WBC 7.6
Hgb 10.0 L
Hct 32.0 L
Plt Count 208
Sodium 141
Potassium 4.1
Chloride 106
Carbon Dioxide 32 H
BUN 9
Creatinine 0.6 L
Glucose 115 H
Calcium 7.9 L
Vital Signs:
Vital Signs
Temp Pulse Resp BP Pulse Ox
100.0 F 80 17 152/75 95
09/10/25 15:34 09/10/25 15:34 09/10/25 15:34 09/10/25 15:34 09/10/25 15:34
I&O
09/09/25 09/10/25 09/11/25
06:59 06:59 06:59
Intake Total 1040 / 1040
Output Total 2099 / 2099 2660 / 2660
Balance -1060 / -1060 -2660 / -2660
[2025-09-10 16:17] LABS: Glucose - Point of Care 226 mg/dl (70-99)
--- NOTE | 2025-09-10 16:44 | CM ---
Patient seen at bedside on . Patient for further surgery and will need PT/OT assessment following. CM will continue to follow for discharge planning needs.
Plan; home with VN vs SNF pending medical treatment plan
[2025-09-10] MEDS: ROCEPHIN 1000 MG IV (17:25)
[2025-09-10] MEDS: STERILE WATER FOR INJECTION 10 ML IV (17:25)
[2025-09-10] MEDS: NOVOLOG FLEXPEN-MODERATE RESISTANCE 3 UNITS SC (17:26)
[2025-09-10 21:40] LABS: Glucose - Point of Care 318 mg/dl (70-99)
[2025-09-10] MEDS: DESYREL 50 MG PO (22:17)
[2025-09-10] MEDS: LIPITOR 20 MG PO (22:18)
[2025-09-10] MEDS: RISPERDAL 2 MG PO (22:18)
[2025-09-10 23:00] VITALS: BP 170/87
[2025-09-11] MEDS: DILAUDID 0.75 MG IV ×6 (00:08→22:41)
[2025-09-11] MEDS: VANCOCIN 535 MG IV ×2 (05:30→18:26)
[2025-09-11 07:18] VITALS: BP 145/73
[2025-09-11] MEDS: NICODERM TRANSDERMAL 21 MG TRANSDERM (08:08)
[2025-09-11] MEDS: BENTYL 20 MG PO ×3 (08:09→21:10)
[2025-09-11] MEDS: FLOMAX 0.8 MG PO (08:09)
[2025-09-11] MEDS: PROTONIX 40 MG PO (08:09)
[2025-09-11] MEDS: NEURONTIN 1200 MG PO ×3 (08:09→21:10)
[2025-09-11] MEDS: ATARAX 50 MG PO ×3 (08:09→21:09)
[2025-09-11] MEDS: ZOLOFT 100 MG PO (08:09)
--- NOTE | 2025-09-11 08:14 | PN.DE.MGMTRT ---
Insulin Management
- -
09/11/2025: Diabetes Management Follow up
50 year old male admitted 09/05 with increased right foot swelling redness and foot drainage found to have right foot wet gangrene. PMH: Uncontrolled T2DM, Peripheral neuropathy and Chronic foot wounds, cirrhosis, HLD, alcohol and methamphetamine
abuse (was in treatment center for rehab). Prior to admission was ordered Lantus 35 units BID and Glipizide 5mg daily. Pt states he was not taking the Lantus as prescribed, he was only taking it in the morning. He reports that his HS Lantus dose
was discontinued due to recurrent hypoglycemia in the morning while in rehab for polysubstance abuse. Glucose on admission was 393, A1C 10.8%, Cr 0.6, eGFR >60.
09/06 right lower extremity ankle disarticulation.
Plan for BKA this week per vascular.
Patient awake, alert, oriented, resting in bed, offers no complaints, able to discuss diabetes care plan
Current diabetes regimen include Lantus 35 units BID, NovoLog 6 units and corrective insulin.
Glucose premeal 115 to 226. HS glucose was 318, received Lantus 35 units BID yesterday.
09/11 Fasting glucose 84 this AM.
Will continue AM Lantus 35 units, decrease HS dose to 30 units, increase AC NovoLog to 8 units AC and change moderate corrective to low corrective insulin.
STOP Glipizide, will not resume at discharge.
Discussed with nurse.
Continue close glucose monitoring and adjust insulin dose if necessary.
Diabetes History
- -
Type of Diabetes: 2 requiring insulin
Pre-Admission Diabetes Regimen
09/10/25
08:51
Creatinine 0.6 L
Lab Results
Hemoglobin A1c 10.8 % (4.0-5.6) H 09/06/25 06:29
Insulin Pump Settings
IP Diabetes Regimen
09/10/25 09/10/25 09/10/25
08:51 11:10 16:15
Glucose 115 H
POC Glucose 187 H 226 H
09/10/25
21:39
Glucose
POC Glucose 318 H
Patient Education
[2025-09-11] MEDS: ROXICODONE 5 MG PO ×4 (08:15→23:51)
[2025-09-11 08:23] LABS: Glucose - Point of Care 84 mg/dl (70-99)
[2025-09-11] MEDS: NOVOLOG FLEXPEN-MODERATE RESISTANCE SC (08:30)
[2025-09-11] MEDS: NOVOLOG FLEXPEN SC (08:31)
--- NOTE | 2025-09-11 08:31 | PHA.VAN.FU ---
Addendum entered and electronically signed by Barbra Nixon RPH 09/11/25 16:05:
BUN & SCR ordered to be collected in AM with trough per protocol
Original Note:
Vancomycin Assessment / Plan
- Assessment
Renal Function: No New Labs Today
In the past 24 hrs, patient has been: Afebrile
Concomitant Antimicrobials: ceftriaxone
- Dosing Plan
Continue: Vanc 1750mg Q12H (adjusted 09/09)
- Monitoring Plan
Peak Level: 09/11 22:00
Trough Level: 09/12 05:30
Monitoring Comments: levesl to be drawn 5th maintenance dose
- Follow Up
Pharmacy will continue to follow.
Vancomycin Follow UP
- -
Patient Age: 50
Patient Sex: Male
Vancomycin Day #: 7
Indication: Diabetic Foot
Requesting Provider: Eli HAIDER / Dr. Westbrook
Pertinent Antimicrobial Allergies:
NKDA
Height / Weight:
Height 5 ft 9 in
Actual Weight 89.5 kg
Pertinent Past Medical History: DM 2, polysubstance use disorder
- Vital Signs / Lab Results
Temp Pulse Resp BP Pulse Ox
98.6 F 77 18 145/73 93
09/11/25 07:18 09/11/25 07:18 09/11/25 07:18 09/11/25 07:18 09/11/25 07:18
Lab Results - Hematology
09/09/25 09/10/25
07:12 08:51
WBC 6.1 7.6
Lab Results - Chemistry
09/09/25 09/09/25 09/10/25
07:12 08:48 08:51
BUN 8 L Cancelled 9
Creatinine 0.6 L Cancelled 0.6 L
Estimated Creat Clear > 125 Cancelled > 125
Microbiology Results
09/05/25 19:43 Blood Culture - Final
Blood/Venous No Growth - Final Report
09/05/25 16:56 Blood Culture - Final
Blood/Venous No Growth - Final Report
09/08/25 20:40 Salmonella/Shigella Culture - Preliminary
Feces/Stool Culture in Progress
Campylobacter Culture - Preliminary
Culture in Progress
Shiga Toxin Test - Final
No E. coli Shiga Toxin 1 or 2 detected.
09/05/25 21:47 Wound Culture - Preliminary
Foot - Right Staph aureus MRSA
Gram Stain - Preliminary
09/05/25 19:43 Wound Culture - Final
Foot - Right Citrobacter freundii
Staph aureus MRSA
Gram Stain - Final
09/05/25 21:47 Anaerobic Culture - Preliminary
Foot - Right Culture pending. Anaerobic cultures are examined after 3
days incubation. Additional information to follow.
09/08/25 20:40 Stool Leukocytes - Final
Feces/Stool
09/08/25 20:40 Cryptosporidium/Giardia - Final
Feces/Stool Negative for Cryptosporidium and/or Giardia Lamblia
antigens.
C. difficile GDH Antigen & Toxins - Final
Negative for toxigenic C.difficile
Therapeutic Drug Monitoring
Vancomycin Peak 19.0 ug/ml (18-26) 09/08/25 21:18
Vancomycin Trough 7.6 ug/ml (5-20) 09/09/25 05:31
--- NOTE | 2025-09-11 08:33 | CM ---
Addendum entered by Tanvi Lutz 09/11/25 13:04:
Patient was located in the [place], [place] [address]. manager of security will send referrals to [facility], [facility], [facility], [facility], [facility],
[facility], [facility]. Patient will need to be cleared to transfer to nursing facility.
Addendum entered by Tanvi Lutz 09/11/25 10:08:
manager of security spoke with Adolph [facility], and she informed pillowcase sewer that patient was homeless in [place], and was in one of their centers for treatment and aftercare recovery program in [place], he was
[facility], patient cannot fly as he has no Real ID, pillowcase sewer reviewed possible options for patient at discharge and plan will be to send a referral to [facility], as they can take out of
state patient's, other option is to find facilities in [place] that would accept patient and send referrals and have [facility] assist with transportation back to [place].
Original Note:
Chart reviewed and patient has [employer] from out of state insurance, patient may not have a skilled benefit, pillowcase sewer will reach out patient's insurance to check to see if patient has a skilled placement.
Plan; Need to check on insurance.
[2025-09-11] MEDS: LANTUS 0.35 UNITS SC (09:49)
[2025-09-11] MEDS: NOVOLOG FLEXPEN 6 UNITS SC ×3 (09:50→17:44)
[2025-09-11 11:50] LABS: Glucose - Point of Care 147 mg/dl (70-99)
[2025-09-11] MEDS: NOVOLOG FLEXPEN-LOW RESISTANCE SC (11:59)
--- NOTE | 2025-09-11 13:31 | W.PN.UPDATE ---
Update Note
Progress Note Update
Planning for right BKA with Dr. Valentino. N.p.o. after midnight Wednesday night.
--- NOTE | 2025-09-11 14:20 | W.PN.ID1 ---
Date of Service
Date of Service: September 11, 2025
Today's Communication
Continue antibiotics. See below�
Assessment / Plan
# Wet/gas gangrene of right foot, nonsalvageable
# Leukocytosis
# Uncontrolled DM, A1c 10.8
- 09/06 s/p I+D. OR cx's pending
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
- Cultures with Staph aureus and Citrobacter.
Continue Vancomycin and Rocephin through BKA. Thereafter, discontinue further antibiotics.
Follow wbc.
Tight glucose control.
Conditions present on admission:
Diabetes mellitus type 2
Hypertension
Neuropathy
Polysubstance abuse
Depression/anxiety
Chief Complaint
-: Other (Foot gangrene)
Subjective / Review of Systems
Review of Systems: No Fever and No Chills
Vital Signs / Physical Exam
Vital Signs
Vital Signs
Temp Pulse Resp BP Pulse Ox
98.6 F 77 18 145/73 93
09/11/25 07:18 09/11/25 07:18 09/11/25 07:18 09/11/25 07:18 09/11/25 07:18
Physical Exam
Constitutional: No Acute Distress and Comfortable
Eyes: Sclera Anicteric
Cardiovascular: S1/S2; Negative S3/S4
Pulmonary: Non Labored
Gastrointestinal: Soft, Non Tender and Non Distended
Genito-Urinary: Nur
Extremities: Other (Right ankle dressed in Walter wrap. No strikethrough)
Neurological: Awake and Alert
Psychological: Calm
Objective Data
Lab Data
Lab Results
09/10/25 08:51
09/10/25 08:51
PT 14.7 Sec (11.4-14.6) H 09/06/25 17:49
INR 1.10 09/06/25 17:49
APTT 27.7 Sec (23.4-35.0) 09/06/25 17:49
Estimated Creat Clear > 125 ml/min 09/10/25 08:51
Lactic Acid 1.7 mmol/L (0.7-2.0) 09/05/25 16:56
Total Bilirubin 0.7 mg/dl (0.2-1.3) 09/05/25 16:56
AST 32 U/L (17-59) 09/05/25 16:56
ALT 22 U/L (0-50) 09/05/25 16:56
Alkaline Phosphatase 146 U/L (38-126) H 09/05/25 16:56
Most recent labs reviewed.
Micro Results:
09/08/25 20:40 Salmonella/Shigella Culture - Final
Feces/Stool No Salmonella, Shigella, Aeromonas or Plesiomonas species
isolated.
Campylobacter Culture - Final
No Campylobacter species isolated.
Shiga Toxin Test - Final
No E. coli Shiga Toxin 1 or 2 detected.
09/05/25 21:47 Wound Culture - Final
Foot - Right Staph aureus MRSA
Gram Stain - Final
09/05/25 21:47 Anaerobic Culture - Final
Foot - Right
09/05/25 19:43 Blood Culture - Final
Blood/Venous No Growth - Final Report
09/05/25 16:56 Blood Culture - Final
Blood/Venous No Growth - Final Report
09/05/25 19:43 Wound Culture - Final
Foot - Right Citrobacter freundii
Staph aureus MRSA
Gram Stain - Final
09/08/25 20:40 Stool Leukocytes - Final
Feces/Stool
09/08/25 20:40 Cryptosporidium/Giardia - Final
Feces/Stool Negative for Cryptosporidium and/or Giardia Lamblia
antigens.
C. difficile GDH Antigen & Toxins - Final
Negative for toxigenic C.difficile
09/05/25 23:18 MRSA Screen - Final
Nose No Methicillin Resistant Staphylococcus aureus isolated.
Imaging:
09/05/25 CR RLE: Extensive cellulitis throughout the foot. Large soft tissue ulceration extends close to the fifth MTP joint. While there is no definite CT evidence for osteomyelitis, given the proximity of the ulcer and extensive degree of
surrounding subcutaneous emphysema in this region, findings are suspicious for osteomyelitis/septic arthritis of the fifth MTP joint. No definite abscess. Consider MRI for further evaluation.
[2025-09-11 15:01] VITALS: BP 140/69
--- NOTE | 2025-09-11 15:37 | W.PN.HOSP.TC ---
Today's Communication/Plan
-
Assessment / Plan
Assessment / Plan
50M with DM, polysubstance abuse, tobacco use, cirrhosis, HLD, BPH, P/W right foot gas gangrene.
NAD
Scleral Anicteric
MMM
No JVD
CTABL
RRR, S1/S2
Soft, NT, ND, BS+
Warm, Dry
Right ankle and below amputation
AAOx3
Calm
Right foot gas gangrene
Concern for sepsis on admission, ruled out, likely aborted with early antibiotic initiation.
Not salvageable with plan for staged amputation.
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
Wound culture with presumptive Staph aureus and Citrobacter
Continue broad-spectrum antibiotics including vancomycin and Zosyn pending final cultures. Consider changing Zosyn to ceftriaxone, will defer to ID.
Plan for BKA early this week
Transition off [employer] to as needed hydromorphone/oxycodone titrating dose as required
Continue gabapentin
Plan for right BKA
Hypokalemia�resolved
Repleted with oral potassium
Poorly controlled IDDM
Hemoglobin A1c 10.5%
Persistent hyperglycemia, hypoglycemic episode last night
Continue Lantus preadmission dose 35 units twice daily.
SSI
Hold glipizide acutely
Cirrhosis
secondary to alcohol and possibly hepatitis C./Treated hepatitis C. Currently compensated
Diarrhea
Could be secondary to antibiotic, consider changing Zosyn to ceftriaxone, will defer to ID
ruled out C. difficile
Other stool studies still pending
Loperamide
Multisubstance use disorder
Currently travel out of state for initiation of drug rehab.
Reports sobriety for at least over a months.
Continue preadmission regimen including, risperidone, gabapentin, sertraline, trazodone.
Hold naltrexone while on hydromorphone
Further adjustment of analgesic regimen including opioids while patient on naltrexone
DVT ppx
Lovenox
Anticipated Discharge: > 48 hours
Subjective/Interval History
-
Date of Service: September 11, 2025
Seen and examined. No new complaints. No acute overnight events.
Objective Data
-
Vital Signs:
Vital Signs
Temp Pulse Resp BP Pulse Ox
97.6 F 78 16 140/69 95
09/11/25 15:01 09/11/25 15:01 09/11/25 15:01 09/11/25 15:01 09/11/25 15:01
I&O
09/10/25 09/11/25 09/12/25
06:59 06:59 06:59
Intake Total 1200 / 1200
Output Total 2660 / 2660 4200 / 4200 1400 / 1400
Balance -2660 / -2660 -3000 / -3000 -1400 / -1400
[2025-09-11 16:13] LABS: Glucose - Point of Care 184 mg/dl (70-99)
[2025-09-11] MEDS: NOVOLOG FLEXPEN-LOW RESISTANCE 1 UNITS SC (17:43)
[2025-09-11] MEDS: STERILE WATER FOR INJECTION 10 ML IV (17:44)
[2025-09-11] MEDS: ROCEPHIN 1000 MG IV (17:45)
[2025-09-11 21:01] LABS: Glucose - Point of Care 132 mg/dl (70-99)
[2025-09-11] MEDS: LANTUS 0.3 UNITS SC (21:09)
[2025-09-11] MEDS: LIPITOR 20 MG PO (21:10)
[2025-09-11] MEDS: DESYREL 50 MG PO (21:10)
[2025-09-11] MEDS: RISPERDAL 2 MG PO (21:10)
[2025-09-11 22:00] VITALS: BP 150/78
--- NOTE | 2025-09-12 02:28 | DOWNTIME ---
There was a [employer] Downtime on 09/12/2025 from 0100 to 09/12/2025 at 0215. Downtime documentation of patient's care, including medication administrations, has been reconciled in the electronic record per guidelines. Refer to the
patient's paper chart under the miscellaneous tab to see printed paper medication records and downtime forms.
[2025-09-12] MEDS: DILAUDID 0.75 MG IV ×6 (03:40→23:58)
[2025-09-12] MEDS: VANCOCIN 535 MG IV ×2 (05:45→17:37)
[2025-09-12] MEDS: ROXICODONE 5 MG PO ×3 (05:53→20:00)
[2025-09-12 06:08] LABS: Blood Urea Nitrogen 16 mg/dl (9-20); Estimated Creatinine Clearance 123 ml/min
[2025-09-12 08:00] VITALS: BP 154/82
[2025-09-12 08:35] LABS: Glucose - Point of Care 91 mg/dl (70-99)
[2025-09-12] MEDS: NOVOLOG FLEXPEN-LOW RESISTANCE SC (08:51)
--- NOTE | 2025-09-12 08:58 | PHA.VAN.FU ---
Vancomycin Assessment / Plan
- Assessment
Renal Function: Stable
WBC's are: WNL
In the past 24 hrs, patient has been: Afebrile
Concomitant Antimicrobials: ceftriaxone
- Assessment - Therapeutic Drug Monitoring
Extrapolated Cmax (mcg/mL): 36.1
Peak level was drawn: Appropriately (drawn ~2.3H after end of previous infusion)
Extrapolated Cmin (mcg/mL): 12.1
Trough Drawn: Appropriately
Levels were drawn: At steady state (levels drawn after 7th maintenance dose)
Calculated AUC (mcg*h/mL): 536
Calculated ke: 0.1089
Calculated half life (H): 6.4
Calculated Vd (L): 60 (~0.7 L/kg)
Calculated Vanc CL (ml/min): 108
- Dosing Plan
Continue: Vanc 1750mg Q12H
- Monitoring Plan
Level(s) appropriate: Recheck trough at minimum of weekly intervals, Repeat sooner for changes in renal function or clinical status
Next Level Due (Date): ~09/18
- Follow Up
Pharmacy will continue to follow.
Vancomycin Follow UP
- -
Patient Age: 50
Patient Sex: Male
Vancomycin Day #: 8
Indication: Diabetic Foot
Requesting Provider: Eli HAIDER / Dr. Westbrook
Pertinent Antimicrobial Allergies:
NKDA
Height / Weight:
Height 5 ft 9 in
Actual Weight 89.5 kg
Pertinent Past Medical History: DM 2, polysubstance use disorder
- Vital Signs / Lab Results
Temp Pulse Resp BP Pulse Ox
98.3 F 77 16 154/82 94
09/12/25 08:00 09/12/25 08:00 09/12/25 08:00 09/12/25 08:00 09/12/25 08:00
Lab Results - Hematology
09/09/25 09/10/25
07:12 08:51
WBC 6.1 7.6
Lab Results - Chemistry
09/09/25 09/09/25 09/10/25
07:12 08:48 08:51
BUN 8 L Cancelled 9
Creatinine 0.6 L Cancelled 0.6 L
Estimated Creat Clear > 125 Cancelled > 125
09/12/25
05:36
BUN 16
Creatinine 0.7
Estimated Creat Clear 123
Microbiology Results
09/08/25 20:40 Salmonella/Shigella Culture - Final
Feces/Stool No Salmonella, Shigella, Aeromonas or Plesiomonas species
isolated.
Campylobacter Culture - Final
No Campylobacter species isolated.
Shiga Toxin Test - Final
No E. coli Shiga Toxin 1 or 2 detected.
09/05/25 21:47 Wound Culture - Final
Foot - Right Staph aureus MRSA
Gram Stain - Final
09/05/25 21:47 Anaerobic Culture - Final
Foot - Right
09/05/25 19:43 Blood Culture - Final
Blood/Venous No Growth - Final Report
09/05/25 16:56 Blood Culture - Final
Blood/Venous No Growth - Final Report
09/05/25 19:43 Wound Culture - Final
Foot - Right Citrobacter freundii
Staph aureus MRSA
Gram Stain - Final
Therapeutic Drug Monitoring
Vancomycin Peak 28.1 ug/ml (18-26) H 09/11/25 22:44
Vancomycin Trough 13.3 ug/ml (5-20) 09/12/25 05:36
[2025-09-12] MEDS: LANTUS 0.35 UNITS SC (09:08)
[2025-09-12] MEDS: FLOMAX 0.8 MG PO (09:10)
[2025-09-12] MEDS: PROTONIX 40 MG PO (09:10)
[2025-09-12] MEDS: NEURONTIN 1200 MG PO ×3 (09:10→21:42)
[2025-09-12] MEDS: BENTYL 20 MG PO ×3 (09:10→21:42)
[2025-09-12] MEDS: NICODERM TRANSDERMAL 21 MG TRANSDERM (09:10)
[2025-09-12] MEDS: ZOLOFT 100 MG PO (09:11)
[2025-09-12] MEDS: ATARAX 50 MG PO ×3 (09:11→21:41)
--- NOTE | 2025-09-12 09:29 | PN.DE.MGMTRT ---
Insulin Management
- -
09/12/2025: Diabetes Management Follow up
50 year old male admitted 09/05 with increased right foot swelling redness and foot drainage found to have right foot wet gangrene. PMH: Uncontrolled T2DM, Peripheral neuropathy and Chronic foot wounds, cirrhosis, HLD, alcohol and methamphetamine
abuse (was in treatment center for rehab). Prior to admission was ordered Lantus 35 units BID and Glipizide 5mg daily. Pt states he was not taking the Lantus as prescribed, he was only taking it in the morning. He reports that his HS Lantus dose
was discontinued due to recurrent hypoglycemia in the morning while in rehab for polysubstance abuse. Glucose on admission was 393, A1C 10.8%, Cr 0.6, eGFR >60.
09/06 right lower extremity ankle disarticulation.
Plan for BKA 09/13 with vascular.
Patient awake, alert, oriented, resting in bed, offers no complaints, able to discuss diabetes care plan
09/11 Fasting glucose 84 this AM. Continue AM Lantus 35 units, decrease HS dose to 30 units, continue AC NovoLog to 6 units AC with low corrective insulin.
09/12 Fasting glucose today 91. Glucose range 09/11 84 to 184. Will again reduce HS lantus to 28 units, continue AM lantus 35 units with 6 units novolog ac and low corrective insulin.
STOP Glipizide, will not resume at discharge.
Discussed with nurse.
Continue close glucose monitoring and adjust insulin dose if necessary.
Diabetes History
- -
Type of Diabetes: 2 requiring insulin
Pre-Admission Diabetes Regimen
09/12/25
05:36
Creatinine 0.7
Lab Results
Hemoglobin A1c 10.8 % (4.0-5.6) H 09/06/25 06:29
Insulin Pump Settings
IP Diabetes Regimen
09/11/25 09/11/25 09/11/25
11:49 16:11 20:59
POC Glucose 147 H 184 H 132 H
09/12/25
08:34
POC Glucose 91
Patient Education
[2025-09-12] MEDS: NOVOLOG FLEXPEN 6 UNITS SC ×3 (09:50→17:42)
--- NOTE | 2025-09-12 10:44 | CM ---
nursing program manager continues to follow with patient and patient is for possible Right BKA on , patient is from [place], is homeless and plan was to attempt to find a [facility] facility in [place] to accept patient, 26 referrals were sent in
[place] to [facility] facilities, and plan was for patient to transport by car, patient will be unable to travel for 1 month per vascular surgery after surgery, pillowcase sewer sent referrals to [facility], [facility] and [facility] facilities in this area, to see if the can accept patient. Patient states he lives in [facility], his sister and his parents are elderly and cannot help per patient.
Plan; Skilled placement after surgery.
[2025-09-12 10:45] VITALS: BMI 29.2
--- NOTE | 2025-09-12 11:41 | W.PN.ID1 ---
Date of Service
Date of Service: September 12, 2025
Today's Communication
Continue antibiotics through BKA. Thereafter, they may be discontinued.
Assessment / Plan
# Wet/gas gangrene of right foot, nonsalvageable
# Leukocytosis
# Uncontrolled DM, A1c 10.8
- S/P foot I&D. (09/06)
- S/P guillotine amp /ankle disarticulation (09/06).
- Cultures with Staph aureus and Citrobacter.
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
Continue Vancomycin and Rocephin through BKA. Thereafter, discontinue further antibiotics.
Tight glucose control.
Conditions present on admission:
Diabetes mellitus type 2
Hypertension
Neuropathy
Polysubstance abuse
Depression/anxiety
Little more to offer from a Infectious Diseases standpoint.
Will see again at your request.
Chief Complaint
-: Other (Foot gangrene)
Subjective / Review of Systems
Review of Systems: No Fever and No Chills
Vital Signs / Physical Exam
Vital Signs
Vital Signs
Temp Pulse Resp BP Pulse Ox
98.3 F 77 16 154/82 94
09/12/25 08:00 09/12/25 08:00 09/12/25 08:00 09/12/25 08:00 09/12/25 08:00
Physical Exam
Constitutional: No Acute Distress and Comfortable
Eyes: Sclera Anicteric
Cardiovascular: S1/S2; Negative S3/S4
Pulmonary: Non Labored
Gastrointestinal: Soft, Non Tender and Non Distended
Genito-Urinary: Nur
Extremities: Other (Right ankle dressed in Walter wrap. No strikethrough)
Neurological: Awake and Alert
Psychological: Calm
Objective Data
Lab Data
Lab Results
09/10/25 08:51
09/12/25 05:36
PT 14.7 Sec (11.4-14.6) H 09/06/25 17:49
INR 1.10 09/06/25 17:49
APTT 27.7 Sec (23.4-35.0) 09/06/25 17:49
Estimated Creat Clear 123 ml/min 09/12/25 05:36
Lactic Acid 1.7 mmol/L (0.7-2.0) 09/05/25 16:56
Total Bilirubin 0.7 mg/dl (0.2-1.3) 09/05/25 16:56
AST 32 U/L (17-59) 09/05/25 16:56
ALT 22 U/L (0-50) 09/05/25 16:56
Alkaline Phosphatase 146 U/L (38-126) H 09/05/25 16:56
Most recent labs reviewed.
Micro Results:
09/08/25 20:40 Salmonella/Shigella Culture - Final
Feces/Stool No Salmonella, Shigella, Aeromonas or Plesiomonas species
isolated.
Campylobacter Culture - Final
No Campylobacter species isolated.
Shiga Toxin Test - Final
No E. coli Shiga Toxin 1 or 2 detected.
09/05/25 21:47 Wound Culture - Final
Foot - Right Staph aureus MRSA
Gram Stain - Final
09/05/25 21:47 Anaerobic Culture - Final
Foot - Right
09/05/25 19:43 Blood Culture - Final
Blood/Venous No Growth - Final Report
09/05/25 16:56 Blood Culture - Final
Blood/Venous No Growth - Final Report
09/05/25 19:43 Wound Culture - Final
Foot - Right Citrobacter freundii
Staph aureus MRSA
Gram Stain - Final
09/08/25 20:40 Stool Leukocytes - Final
Feces/Stool
09/08/25 20:40 Cryptosporidium/Giardia - Final
Feces/Stool Negative for Cryptosporidium and/or Giardia Lamblia
antigens.
C. difficile GDH Antigen & Toxins - Final
Negative for toxigenic C.difficile
09/05/25 23:18 MRSA Screen - Final
Nose No Methicillin Resistant Staphylococcus aureus isolated.
Imaging:
09/05/25 CR RLE: Extensive cellulitis throughout the foot. Large soft tissue ulceration extends close to the fifth MTP joint. While there is no definite CT evidence for osteomyelitis, given the proximity of the ulcer and extensive degree of
surrounding subcutaneous emphysema in this region, findings are suspicious for osteomyelitis/septic arthritis of the fifth MTP joint. No definite abscess. Consider MRI for further evaluation.
[2025-09-12 12:31] LABS: Glucose - Point of Care 248 mg/dl (70-99)
--- NOTE | 2025-09-12 13:09 | W.PN.HOSP.TC ---
Today's Communication/Plan
-
Assessment / Plan
Assessment / Plan
50M with DM, polysubstance abuse, tobacco use, cirrhosis, HLD, BPH, P/W right foot gas gangrene.
NAD
Scleral Anicteric
MMM
No JVD
CTABL
RRR, S1/S2
Soft, NT, ND, BS+
Warm, Dry
Right ankle and below amputation
AAOx3
Calm
Right foot gas gangrene
Concern for sepsis on admission, ruled out, likely aborted with early antibiotic initiation.
Not salvageable with plan for staged amputation.
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
Wound culture with presumptive Staph aureus and Citrobacter
Continue vancomycin and Rocephin per ID recommendations
Plan for BKA early this week
Transition off [employer] to as needed hydromorphone/oxycodone titrating dose as required
Continue gabapentin
Plan for right BKA
Hypokalemia�resolved
Repleted with oral potassium
Poorly controlled IDDM
Hemoglobin A1c 10.5%
Persistent hyperglycemia, hypoglycemic episode last night
Continue Lantus preadmission dose 35 units twice daily.
SSI
Hold glipizide acutely
Cirrhosis
secondary to alcohol and possibly hepatitis C./Treated hepatitis C. Currently compensated
Diarrhea
Could be secondary to antibiotic, consider changing Zosyn to ceftriaxone, will defer to ID
ruled out C. difficile
Other stool studies still pending
Loperamide
Multisubstance use disorder
Currently travel out of state for initiation of drug rehab.
Reports sobriety for at least over a months.
Continue preadmission regimen including, risperidone, gabapentin, sertraline, trazodone.
Hold naltrexone while on hydromorphone
Further adjustment of analgesic regimen including opioids while patient on naltrexone
DVT ppx
Lovenox
Anticipated Discharge: 24 - 48 hours
Subjective/Interval History
-
Date of Service: September 12, 2025
Seen and examined. No new complaints. No acute overnight events.
Objective Data
-
Labs:
Laboratory Results
09/12/25
05:36
BUN 16
Creatinine 0.7
Vital Signs:
Vital Signs
Temp Pulse Resp BP Pulse Ox
98.3 F 77 16 154/82 94
09/12/25 08:00 09/12/25 08:00 09/12/25 08:00 09/12/25 08:00 09/12/25 08:00
I&O
09/11/25 09/12/25 09/13/25
06:59 06:59 06:59
Intake Total 1200 / 1200 480 / 480
Output Total 4200 / 4200 3950 / 3950
Balance -3000 / -3000 -3470 / -3470
[2025-09-12] MEDS: NOVOLOG FLEXPEN-LOW RESISTANCE 2 UNITS SC (13:28)
[2025-09-12 16:00] VITALS: BP 140/70
[2025-09-12 16:59] LABS: Glucose - Point of Care 295 mg/dl (70-99)
[2025-09-12] MEDS: STERILE WATER FOR INJECTION 10 ML IV (17:38)
[2025-09-12] MEDS: ROCEPHIN 1000 MG IV (17:38)
[2025-09-12] MEDS: NOVOLOG FLEXPEN-LOW RESISTANCE 3 UNITS SC (17:42)
[2025-09-12 21:21] LABS: Glucose - Point of Care 246 mg/dl (70-99)
[2025-09-12] MEDS: DESYREL 50 MG PO (21:42)
[2025-09-12] MEDS: LANTUS 0.28 UNITS SC (21:42)
[2025-09-12] MEDS: RISPERDAL 2 MG PO (21:42)
[2025-09-12] MEDS: LIPITOR 20 MG PO (21:42)
[2025-09-12 23:00] VITALS: BP 165/83
[2025-09-13] VITALS (12 sets, daily range): BP systolic 122–163; BP diastolic 77–91
[2025-09-13] MEDS: DILAUDID 0.75 MG IV ×3 (04:30→12:09)
[2025-09-13] MEDS: VANCOCIN 535 MG IV ×2 (05:48→18:26)
[2025-09-13 06:09] LABS: Glucose - Point of Care 182 mg/dl (70-99)
[2025-09-13] MEDS: NOVOLOG FLEXPEN-LOW RESISTANCE 1 UNITS SC (06:48)
[2025-09-13] MEDS: LANTUS 0.35 UNITS SC (08:00)
[2025-09-13] MEDS: ZOLOFT 100 MG PO (08:01)
[2025-09-13] MEDS: FLOMAX 0.8 MG PO (08:01)
[2025-09-13] MEDS: BENTYL 20 MG PO ×3 (08:01→22:30)
[2025-09-13] MEDS: NEURONTIN 1200 MG PO ×2 (08:01→17:54)
[2025-09-13] MEDS: PROTONIX 40 MG PO (08:01)
[2025-09-13] MEDS: NICODERM TRANSDERMAL 21 MG TRANSDERM (08:03)
[2025-09-13] MEDS: ATARAX 50 MG PO ×2 (08:03→17:57)
[2025-09-13] MEDS: NOVOLOG FLEXPEN SC ×2 (08:31→12:20)
--- NOTE | 2025-09-13 08:54 | PN.DE.MGMTRT ---
Insulin Management
- -
09/13/2025: Diabetes Management Follow up
50 year old male admitted 09/05 with increased right foot swelling redness and foot drainage found to have right foot wet gangrene. PMH: Uncontrolled T2DM, Peripheral neuropathy and Chronic foot wounds, cirrhosis, HLD, alcohol and methamphetamine
abuse (was in treatment center for rehab). Prior to admission was ordered Lantus 35 units BID and Glipizide 5mg daily. Pt states he was not taking the Lantus as prescribed, he was only taking it in the morning. He reports that his HS Lantus dose
was discontinued due to recurrent hypoglycemia in the morning while in rehab for polysubstance abuse. Glucose on admission was 393, A1C 10.8%, Cr 0.6, eGFR >60.
09/06 right lower extremity ankle disarticulation.
Plan for BKA 09/13 with vascular.
Patient awake, alert, oriented, resting in bed, offers no complaints, able to discuss diabetes care plan
09/12 Fasting glucose today 91. Glucose range 09/12 91 to 295.
09/13 Patient NPO for OR today. Fasting glucose 182. Will continue HS lantus to 28 units, continue AM lantus 35 units will increase AC novolog from 6 units to 8 units with low corrective insulin s/p OR.
STOP Glipizide, will not resume at discharge.
Discussed with nurse.
Continue close glucose monitoring and adjust insulin dose if necessary.
Diabetes History
- -
Type of Diabetes: 2 requiring insulin
Pre-Admission Diabetes Regimen
Lab Results
Hemoglobin A1c 10.8 % (4.0-5.6) H 09/06/25 06:29
Insulin Pump Settings
IP Diabetes Regimen
09/12/25 09/12/25 09/12/25
12: 16:58 21:19
POC Glucose 248 H 295 H 246 H
09/13/25
06:08
POC Glucose 182 H
Meal type: Breakfast
Amount consumed: 100%
Patient Education
--- NOTE | 2025-09-13 09:05 | WOUNDNOTE ---
[facility] RN note: Patient s/p R ankle disarticulation on 09/06/25, he is on the OR schedule this afternoon for a R BKA today. Patient turns self in bed. Perianal skin with mild MASD. Sacral skin intact. L heel dry necrotic ulcer slightly improved and is
stable. Dressing changed on L heel. Sacral shaped silicone border foam applied to sacrum. Patient instructed pressure injury prevention measures including turning and L heel pressure relief. L heel off bed with pillow. Air chair cushion given.
Patient reports a good appetite. He is currently NPO for surgery today. Will follow as needed.
--- NOTE | 2025-09-13 09:31 | PHA.VAN.FU ---
Vancomycin Assessment / Plan
- Assessment
Renal Function: No New Labs Today
In the past 24 hrs, patient has been: Afebrile
Concomitant Antimicrobials: ceftriaxone
- Dosing Plan
Continue: Vanc 1750mg Q12H
- Monitoring Plan
Level(s) appropriate: Recheck trough at minimum of weekly intervals, Repeat sooner for changes in renal function or clinical status
Next Level Due (Date): ~09/18
- Follow Up
Pharmacy will continue to follow.
Vancomycin Follow UP
- -
Patient Age: 50
Patient Sex: Male
Vancomycin Day #: 9
Indication: Diabetic Foot
Requesting Provider: Eli HAIDER / Dr. Westbrook
Pertinent Antimicrobial Allergies:
NKDA
Height / Weight:
Height 5 ft 9 in
Actual Weight 89.5 kg
Pertinent Past Medical History: DM 2, polysubstance use disorder
- Vital Signs / Lab Results
Temp Pulse Resp BP Pulse Ox
98.1 F 81 16 138/77 93
09/13/25 07:25 09/13/25 07:25 09/13/25 07:25 09/13/25 07:25 09/13/25 07:25
Lab Results - Chemistry
09/10/25 09/12/25
08:51 05:36
BUN 9 16
Creatinine 0.6 L 0.7
Estimated Creat Clear > 125 123
Microbiology Results
09/08/25 20:40 Salmonella/Shigella Culture - Final
Feces/Stool No Salmonella, Shigella, Aeromonas or Plesiomonas species
isolated.
Campylobacter Culture - Final
No Campylobacter species isolated.
Shiga Toxin Test - Final
No E. coli Shiga Toxin 1 or 2 detected.
09/05/25 21:47 Wound Culture - Final
Foot - Right Staph aureus MRSA
Gram Stain - Final
09/05/25 21:47 Anaerobic Culture - Final
Foot - Right
Therapeutic Drug Monitoring
Vancomycin Peak 28.1 ug/ml (18-26) H 09/11/25 22:44
Vancomycin Trough 13.3 ug/ml (5-20) 09/12/25 05:36
--- NOTE | 2025-09-13 11:10 | CM ---
manager quality improvement continues to follow with patient progress notes, 27 referrals sent mainly in [place] area where patient is from, other referrals sent to [facility] and [facility] in this area since patient is unable to travel for a
month per vascular surgery. manager quality improvement also reached out to Adolph Cameron [phone] from [facility] to see if she can help with finding a place for patient to go to after surgery.
Plan; skilled placement
[2025-09-13 12:08] LABS: Glucose - Point of Care 103 mg/dl (70-99)
[2025-09-13] MEDS: NOVOLOG FLEXPEN-LOW RESISTANCE SC ×2 (12:20→18:27)
[2025-09-13] MEDS: PERIDEX 0.12% ORAL RINSE 15 ML PO (12:40)
[2025-09-13] MEDS: ANCEF 10 IV (12:41)
--- NOTE | 2025-09-13 14:17 | W.PN.HOSP.TC ---
Today's Communication/Plan
-
Assessment / Plan
Assessment / Plan
50M with DM, polysubstance abuse, tobacco use, cirrhosis, HLD, BPH, P/W right foot gas gangrene.
NAD
Scleral Anicteric
MMM
No JVD
CTABL
RRR, S1/S2
Soft, NT, ND, BS+
Warm, Dry
Right ankle and below amputation
AAOx3
Calm
Right foot gas gangrene
Concern for sepsis on admission, ruled out, likely aborted with early antibiotic initiation.
Not salvageable with plan for staged amputation.
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
Wound culture with presumptive Staph aureus and Citrobacter
Continue vancomycin and Rocephin per ID recommendations
Plan for BKA early this week
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
Continue gabapentin
Plan for right BKA
Hypokalemia�resolved
Repleted with oral potassium
Poorly controlled IDDM
Hemoglobin A1c 10.5%
Persistent hyperglycemia, hypoglycemic episode last night
Continue Lantus preadmission dose 35 units twice daily.
SSI
Hold glipizide acutely
Cirrhosis
secondary to alcohol and possibly hepatitis C./Treated hepatitis C. Currently compensated
Diarrhea
Could be secondary to antibiotic, consider changing Zosyn to ceftriaxone, will defer to ID
ruled out C. difficile
Other stool studies still pending
Loperamide
Multisubstance use disorder
Currently travel out of state for initiation of drug rehab.
Reports sobriety for at least over a months.
Continue preadmission regimen including, risperidone, gabapentin, sertraline, trazodone.
Hold naltrexone while on hydromorphone
Further adjustment of analgesic regimen including opioids while patient on naltrexone
DVT ppx
Lovenox
Anticipated Discharge: 24 - 48 hours
Subjective/Interval History
-
Date of Service: September 13, 2025
Seen and examined. No new complaints. No acute overnight events
Objective Data
-
Vital Signs:
Vital Signs
Temp Pulse Resp BP Pulse Ox
98.1 F 81 16 138/77 93
09/13/25 07:25 09/13/25 07:25 09/13/25 07:25 09/13/25 07:25 09/13/25 08:57
I&O
09/12/25 09/13/25 09/14/25
06:59 06:59 06:59
Intake Total 480 / 480 2760 / 2760
Output Total 3950 / 3950 4750 / 4750
Balance -3469 / -3469 -1989 /
--- NOTE | 2025-09-13 14:49 | W.SUR.POST ---
Surgical Immediate Post Op
Note
Pre Op Diagnosis: Gangrene
Post Op Diagnosis: Same
Procedure Performed: Right BKA
Primary Surgeon: Chicho
Secondary Surgeons: Marcial HAIDER
Anesthesia: General
Estimated Blood Loss: 125cc
Fluids: see anesthesia flowsheet
Drains/Shunts: None
Specimens/Cultures: R leg
Doppler/Duplex/Angio (Y/N): N
Complications: None
Operative Findings: None
--- NOTE | 2025-09-13 15:45 | OR.RPT ---
Operative Report
Operative Report
PROCEDURE DATE: 09/13/2025
Preoperative diagnosis:
1. Wet gangrene right foot.
2. Status post emergent ankle disarticulation right lower extremity.
Postoperative diagnosis: Same
Procedure: Right below the knee amputation
Surgeon: Chicho
Medicare Interviewer: VASU Ceja, required for aspects procedure including assistance with traction/countertraction, assistance with closure.
Complications: None
Anesthesia: General
Indications for procedure:
As above, status post ankle disarticulation. Metabolically improved. Now brought for definitive closure/BKA.
Description of procedure:
Patient was identified brought to the operating room placed on the table in supine position. After the adequate administration of anesthesia and perioperative antibiotics he was prepped and draped in the standard surgical fashion. A standard
preoperative timeout was undertaken and everybody was in agreement the plan. Standard posterior flap type incisions were made in the right lower extremity with a transverse incision anteriorly at approximately 10 to 12 cm distal to the tibial
tuberosity. Medial and lateral longitudinal incisions were carried down. And then posterior transverse incision was then again carried down. The incisions were carried through the skin subcutaneous tissue with the electrocautery and then through
the fascial layer. Hemostasis was achieved as we progressed. Next the muscles of the anterior and lateral compartments of the calf were divided with electrocautery. The anterior tibial neurovascular bundle was ligated between silk ties and then
divided. Additional silk suture ligature was placed on the proximal anterior tibial artery/vein. The muscles/attachments of the tibia medially were also divided with electrocautery. As such the tibia was then freed of all its attachments and a
periosteal elevator was used to elevate the periosteum circumferentially. The fibula was similarly freed of all its surrounding soft tissue and muscles. These were transected with electrocautery. The intermuscular septum was then divided with
electrocautery. Circumferential dissection of the fibula was undertaken carefully and a periosteal elevator was used to elevate the periosteum circumferentially around the fibula as well. At this point the tibia and fibula were transected with an
oscillating saw. The posterior tissues were then cut with a amputation knife and a direction parallel to the access of the leg. This was then teed off in a perpendicular access at the distal posterior transverse skin incision site. The leg
specimen was then removed. The peroneal and posterior tibial arteries were then controlled with hemostats. These were then ligated. (Ligated distally and the transection site). Next I removed any redundant muscle with the electrocautery. The
peroneal and posterior tibial neurovascular bundles were then trimmed back along with the muscle/fascia accompanying them. I then re-ligated the peroneal and posterior tibial arteries and veins with silk suture ligatures proximally just distal to
the bone transection site. Next hemostasis was achieved throughout the muscle bed with [id number] 2-0 and 3-0 silk suture. Next the oscillating saw was used to bevel the anterior aspect of the tibia so as to avoid any pressure point. A rasp
was used to smooth the edges. The fibula was then re- transected with the oscillating saw to a point approximately 1 cm proximal to the tibial transection. A rasp was used to smooth the edges. Next we irrigated copiously. Hemostasis was
confirmed. We then closed in layers after trimming the skin flap of any redundant/dogear type projections. 0 Vicryl interrupted suture was used to reapproximate the fascial layer. Next running 3-0 Vicryl deep dermal suture layer was run. Finally
skin clips were applied. Bulky dressings were applied. The patient tolerated procedure well. All sponge, needle, instrument counts were correct at the end of the case. The patient was transferred to the recovery room in stable condition.
[2025-09-13 16:00] LABS: Glucose - Point of Care 109 mg/dl (70-99)
[2025-09-13] MEDS: DILAUDID 0.5 MG IV ×2 (16:02→16:26)
[2025-09-13] MEDS: DILAUDID PCA 30 IV (16:29)
[2025-09-13 16:35] LABS: Hematocrit 34.3 % (39.0-52.0); Hemoglobin 10.7 g/dL (13.0-18.0); Mean Corp Hgb Conc. 31.2 g/dL (33.0-37.0); Mean Corpuscular Volume 84.1 fL (80.0-94.0); Platelet Count 290 10^3/uL (130-400); Red Cell Dist. Width 13.6 % (11.5-14.5)
[2025-09-13 16:38] LABS: Blood Urea Nitrogen 17 mg/dl (9-20); Calcium 8.4 mg/dl (8.4-10.2); Carbon Dioxide 28 mmol/L (22-30); Chloride 107 mmol/L (98-107); Estimated Creatinine Clearance 123 ml/min; Glucose 110 mg/dl (70-99); Potassium 4.2 mmol/L (3.5-5.1); Sodium 139 mmol/L (135-145); eGFR > 60.00
[2025-09-13] MEDS: STERILE WATER FOR INJECTION 10 ML IV (18:26)
[2025-09-13] MEDS: ROCEPHIN 1000 MG IV (18:27)
[2025-09-13] MEDS: NOVOLOG FLEXPEN 8 UNITS SC (18:28)
[2025-09-13] MEDS: NSS 1000 IV (19:45)
[2025-09-13 21:07] LABS: Glucose - Point of Care 246 mg/dl (70-99)
[2025-09-13] MEDS: LANTUS 0.28 UNITS SC (22:28)
[2025-09-13] MEDS: LIPITOR 20 MG PO (22:29)
[2025-09-13] MEDS: RISPERDAL 2 MG PO (22:29)
[2025-09-14] VITALS (9 sets, daily range): BP systolic 105–160; BP diastolic 63–84; O2SAT 96
[2025-09-14] MEDS: ATARAX PO (00:15)
[2025-09-14] MEDS: NEURONTIN PO (00:15)
[2025-09-14] MEDS: VANCOCIN 535 MG IV (06:13)
[2025-09-14 07:15] LABS: Glucose - Point of Care 261 mg/dl (70-99)
--- NOTE | 2025-09-14 07:21 | PN.DE.MGMTRT ---
Insulin Management
- -
09/14/2025: Diabetes Management Follow up
50 year old male admitted 09/05 with increased right foot swelling redness and foot drainage found to have right foot wet gangrene. PMH: Uncontrolled T2DM, Peripheral neuropathy and Chronic foot wounds, cirrhosis, HLD, alcohol and methamphetamine
abuse (was in treatment center for rehab). Prior to admission was ordered Lantus 35 units BID and Glipizide 5mg daily. Pt states he was not taking the Lantus as prescribed, he was only taking it in the morning. He reports that his HS Lantus dose
was discontinued due to recurrent hypoglycemia in the morning while in rehab for polysubstance abuse.
Glucose on admission was 393, A1C 10.8%, Cr 0.6, eGFR >60.
09/06 right lower extremity ankle disarticulation.
Patient awake, alert, oriented, resting in bed, offers no complaints, able to discuss diabetes care plan
POD # 1 s/p right BKA. Pain is well controlled on FIELD RETURN REPAIRER pump.
09/13 NovoLog dose was increased from 6 units to 8 units. Continue HS Lantus 28 units, and AM Lantus 35 units.
HS glucose has been 246 x2 days and Fasting glucose has been > 180 since reducing HS Lantus to 28 units.
Will increase HS Lantus dose to 32 units. Cont NovoLog 8 units AC and low corrective with meals
STOP Glipizide, will not resume at discharge.
Discussed with nurse. Continue close glucose monitoring and adjust insulin dose if necessary.
Diabetes History
- -
Type of Diabetes: 2 requiring insulin
Pre-Admission Diabetes Regimen
09/13/25
16:09
Creatinine 0.7
Lab Results
Hemoglobin A1c 10.8 % (4.0-5.6) H 09/06/25 06:29
Insulin Pump Settings
IP Diabetes Regimen
09/13/25 09/13/25 09/13/25
12:06 15:58 16:09
Glucose 110 H
POC Glucose 103 H 109 H
09/13/25 09/14/25
21:05 07:13
Glucose
POC Glucose 246 H 261 H
Meal type: Lunch
Meal type: Breakfast
Patient Education
--- NOTE | 2025-09-14 07:21 | W.PN.VS ---
Addendum entered and electronically signed by Hossein Valentino MD 09/14/25 09:37:
Seen and examined with DISC PAD PLATE FILLER Cook earlier this a.m. Agree with findings as noted below. Agree with plan as discussed and noted below.
Original Note:
Today's Communication / Plan
-
Patient seen and examined at bedside with Dr. Hossein Valentino, below plan reviewed with attending.
Assessment/Plan
-
Postop s/p right ankle disarticulation, POD #1 right below the knee amputation
Plan:
Continue overhead trapeze
Nur catheter scheduled to be removed tomorrow morning
Continue NEUROPHYSIOLOGICAL TECHNICIAN today, will transition to p.o. pain medication tomorrow
PT and OT eval/treat
A.m. labs pending, will review hemoglobin when finalized, no concern for any active bleeding as dressing is dry, vital signs stable
Case management consultation as patient will require rehab following discharge
Subjective Data
-
Date of Service: September 14, 2025
Patient seen and examined at bedside, reports well-managed postoperative pain with current pain regimen of NEUROPHYSIOLOGICAL TECHNICIAN. Denies nausea, vomiting, fever, and chills. Does endorse difficulty straightening right BKA site, encouraged that he flex and extend
knee throughout the day to reduce risk of contracture, verbalized understanding.
Objective Data
-
Vital Signs
Temp Pulse Resp BP Pulse Ox
98.5 F 88 16 160/63 96
09/14/25 04:06 09/14/25 04:06 09/14/25 07:16 09/14/25 04:06 09/14/25 07:16
Intake and Output
09/13/25 09/14/25 09/15/25
06:59 06:59 06:59
Intake Total 2760 / 2760 820 / 820
Output Total 4750 / 4750 6125 / 6125
Balance -1989 / -1989 -5 / -5305
Intake:
Oral fluids 2760 / 2760 720 / 720
IV fluids (Total) 100 / 100
NSS 100 / 100
Output:
Urine, Nur 3375 / 3375
Urine, Voided 4750 / 4750 2750 / 2750
Calcium 8.4 mg/dl (8.4-10.2) 09/13/25 16:09
Phosphorus 3.2 mg/dl (2.5-4.5) 09/06/25 16:37
Magnesium 2.0 mg/dl (1.6-2.3) 09/06/25 16:37
Total Bilirubin 0.7 mg/dl (0.2-1.3) 09/05/25 16:56
AST 32 U/L (17-59) 09/05/25 16:56
ALT 22 U/L (0-50) 09/05/25 16:56
Alkaline Phosphatase 146 U/L (38-126) H 09/05/25 16:56
Total Protein 6.7 g/dl (6.3-8.2) 09/05/25 16:56
Albumin 3.5 g/dl (3.5-5.0) 09/05/25 16:56
Physical Exam
-
AO x 3
No tachypnea on room air
No tachycardia
Abdomen soft
Right BKA site dressing clean, dry, intact
[2025-09-14] MEDS: NOVOLOG FLEXPEN 8 UNITS SC ×3 (08:11→17:09)
[2025-09-14] MEDS: NOVOLOG FLEXPEN-LOW RESISTANCE 3 UNITS SC (08:11)
[2025-09-14] MEDS: NEURONTIN 1200 MG PO ×3 (08:12→22:46)
[2025-09-14] MEDS: BENTYL 20 MG PO ×3 (08:12→22:46)
[2025-09-14] MEDS: ATARAX 50 MG PO ×3 (08:13→21:38)
[2025-09-14] MEDS: FLOMAX 0.8 MG PO (08:13)
[2025-09-14] MEDS: NICODERM TRANSDERMAL 21 MG TRANSDERM (08:13)
[2025-09-14] MEDS: PROTONIX 40 MG PO (08:13)
[2025-09-14] MEDS: ZOLOFT 100 MG PO (08:13)
[2025-09-14] MEDS: LANTUS 0.35 UNITS SC (08:15)
[2025-09-14 08:58] LABS: Blood Urea Nitrogen 12 mg/dl (9-20); Calcium 7.7 mg/dl (8.4-10.2); Carbon Dioxide 28 mmol/L (22-30); Chloride 101 mmol/L (98-107); Estimated Creatinine Clearance > 125 ml/min; Glucose 246 mg/dl (70-99); Potassium 4.1 mmol/L (3.5-5.1); Sodium 132 mmol/L (135-145); eGFR > 60.00
[2025-09-14 09:18] LABS: Hematocrit 27.7 % (39.0-52.0); Hemoglobin 8.7 g/dL (13.0-18.0); Mean Corp Hgb Conc. 31.4 g/dL (33.0-37.0); Mean Corpuscular Volume 82.2 fL (80.0-94.0); Platelet Count 222 10^3/uL (130-400); Red Cell Dist. Width 13.4 % (11.5-14.5)
[2025-09-14] MEDS: TYLENOL 650 MG PO ×4 (11:17→23:12)
[2025-09-14 11:38] LABS: Glucose - Point of Care 242 mg/dl (70-99)
[2025-09-14 12:52] LABS: Hematocrit 27.9 % (39.0-52.0); Hemoglobin 9.3 g/dL (13.0-18.0)
[2025-09-14] MEDS: NOVOLOG FLEXPEN-LOW RESISTANCE 2 UNITS SC (12:55)
--- NOTE | 2025-09-14 13:56 | W.PN.HOSP.TC ---
Today's Communication/Plan
-
Assessment / Plan
Assessment / Plan
50M with DM, polysubstance abuse, tobacco use, cirrhosis, HLD, BPH, P/W right foot gas gangrene.
NAD
Scleral Anicteric
MMM
No JVD
CTABL
RRR, S1/S2
Soft, NT, ND, BS+
Warm, Dry
Right ankle and below amputation
AAOx3
Calm
Right foot gas gangrene
Concern for sepsis on admission, ruled out, likely aborted with early antibiotic initiation.
Not salvageable with plan for staged amputation.
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
Wound culture with presumptive Staph aureus and Citrobacter
Continue vancomycin and Rocephin per ID recommendations
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
Transition off PROGRAM ASSISTANT to as needed hydromorphone/oxycodone titrating dose as required
Continue gabapentin
Hypokalemia�resolved
Repleted with oral potassium
Poorly controlled IDDM
Hemoglobin A1c 10.5%
Persistent hyperglycemia, hypoglycemic episode last night
Continue Lantus preadmission dose 35 units twice daily.
SSI
Hold glipizide acutely
Cirrhosis
secondary to alcohol and possibly hepatitis C./Treated hepatitis C. Currently compensated
Diarrhea
Could be secondary to antibiotic, consider changing Zosyn to ceftriaxone, will defer to ID
ruled out C. difficile
Other stool studies still pending
Loperamide
Multisubstance use disorder
Currently travel out of state for initiation of drug rehab.
Reports sobriety for at least over a months.
Continue preadmission regimen including, risperidone, gabapentin, sertraline, trazodone.
Hold naltrexone while on hydromorphone
Further adjustment of analgesic regimen including opioids while patient on naltrexone
DVT ppx
Lovenox
Anticipated Discharge: > 48 hours
Subjective/Interval History
-
Date of Service: September 14, 2025
seen and examined. s/p bka, increased pain, asking for more pain meds above manager english pump
Objective Data
-
Labs:
Laboratory Results
09/14/25 09/14/25
07:09 12:33
WBC 9.4
Hgb 8.7 L 9.3 L
Hct 27.7 L 27.9 L
Plt Count 222 D
Sodium 132 L
Potassium 4.1
Chloride 101
Carbon Dioxide 28
BUN 12
Creatinine 0.6 L
Glucose 246 H
Calcium 7.7 L
Vital Signs:
Vital Signs
Temp Pulse Resp BP Pulse Ox
98.5 F 88 20 148/75 97
09/14/25 11:09 09/14/25 11:09 09/14/25 11:09 09/14/25 11:09 09/14/25 11:09
I&O
09/13/25 09/14/25 09/15/25
06:59 06:59 06:59
Intake Total 2760 / 2760 820 / 820
Output Total 4750 / 4750 6125 / 6125
Balance -1989 / -1989 -5 / -5
--- NOTE | 2025-09-14 13:59 | CM ---
international account manager reviewed patient's chart and met with patient, patient had surgery R BKA, plan is for skilled placement, 27 referrals sent, call placed to [facility] today to see if they could take patient, DON at [facility] to review.
Plan; Skilled placement.
[2025-09-14 16:38] LABS: Glucose - Point of Care 174 mg/dl (70-99)
[2025-09-14] MEDS: NOVOLOG FLEXPEN-LOW RESISTANCE 1 UNITS SC (17:10)
[2025-09-14 21:17] LABS: Glucose - Point of Care 290 mg/dl (70-99)
[2025-09-14] MEDS: LANTUS 0.32 UNITS SC (21:38)
[2025-09-14] MEDS: LIPITOR 20 MG PO (21:38)
[2025-09-14] MEDS: RISPERDAL 2 MG PO (21:38)
[2025-09-14] MEDS: DILAUDID PCA 30 IV (23:11)
[2025-09-14] MEDS: DESYREL PO (23:12)
[2025-09-15] MEDS: NSS 1000 IV (00:47)
[2025-09-15] MEDS: TYLENOL PO ×2 (04:14→07:38)
--- NOTE | 2025-09-15 06:55 | W.PN.VS ---
Today's Communication / Plan
-
Today's plan below.
Assessment/Plan
-
Postop s/p right ankle disarticulation, POD #2 right below the knee amputation
Plan:
Continue overhead trapeze
Nur catheter discontinued
Transitioned to p.o. pain medication for hopefully better coverage of pain
Continue PT and OT eval/treat
Case management consultation as patient will require rehab following discharge
Continue daily dressing change of gentle Walter wrap
Subjective Data
-
Date of Service: September 15, 2025
Patient seen and examined at bedside, reports intermittent breakthrough pain otherwise fairly controlled postoperative pain. Denies nausea, vomiting, fever, and chills.
Objective Data
-
Vital Signs
Temp Pulse Resp BP Pulse Ox
99.1 F 89 16 148/73 96
09/14/25 23:00 09/14/25 23:00 09/15/25 04:00 09/14/25 23:00 09/15/25 04:00
Intake and Output
09/13/25 09/14/25 09/15/25
06:59 06:59 06:59
Intake Total 2760 / 2760 820 / 820 2280 / 2280
Output Total 4750 / 4750 6125 / 6125 4650 / 4650
Balance -1989 / -1989 -5305 / -5305 -2370 / -2370
Intake:
Oral fluids 2760 / 2760 720 / 720 2280 / 2280
IV fluids (Total) 100 / 100
NSS 100 / 100
Output:
Urine, Nur 3375 / 3375 4650 / 4650
Urine, Voided 4750 / 4750 2750 / 2750
Lab Results
09/14/25 07:09
Calcium 7.7 mg/dl (8.4-10.2) L 09/14/25 07:09
Phosphorus 3.2 mg/dl (2.5-4.5) 09/06/25 16:37
Magnesium 2.0 mg/dl (1.6-2.3) 09/06/25 16:37
Total Bilirubin 0.7 mg/dl (0.2-1.3) 09/05/25 16:56
AST 32 U/L (17-59) 09/05/25 16:56
ALT 22 U/L (0-50) 09/05/25 16:56
Alkaline Phosphatase 146 U/L (38-126) H 09/05/25 16:56
Total Protein 6.7 g/dl (6.3-8.2) 09/05/25 16:56
Albumin 3.5 g/dl (3.5-5.0) 09/05/25 16:56
Physical Exam
-
AO x 3
No tachypnea on room air
No tachycardia
Abdomen soft
Right BKA dressing removed, staple site clean, dry, and intact, all compartments soft and no evidence of hematoma, redressed with gentle Walter wrap
[2025-09-15] MEDS: ATARAX 50 MG PO ×3 (07:35→22:52)
[2025-09-15] MEDS: FLOMAX 0.8 MG PO (07:35)
[2025-09-15] MEDS: NEURONTIN 1200 MG PO ×3 (07:35→22:04)
[2025-09-15] MEDS: BENTYL 20 MG PO ×3 (07:35→22:52)
[2025-09-15] MEDS: NICODERM TRANSDERMAL 21 MG TRANSDERM (07:35)
[2025-09-15] MEDS: ZOLOFT 100 MG PO (07:38)
[2025-09-15] MEDS: PROTONIX 40 MG PO (07:38)
[2025-09-15] MEDS: TYLENOL 650 MG PO ×3 (07:38→19:07)
[2025-09-15 07:43] VITALS: BP 138/81
[2025-09-15] MEDS: LANTUS 0.35 UNITS SC (07:55)
[2025-09-15 07:56] LABS: Glucose - Point of Care 213 mg/dl (70-99)
[2025-09-15] MEDS: NOVOLOG FLEXPEN 8 UNITS SC ×3 (07:56→16:40)
[2025-09-15] MEDS: NOVOLOG FLEXPEN-LOW RESISTANCE 2 UNITS SC (07:56)
[2025-09-15 08:52] LABS: Hematocrit 28.1 % (39.0-52.0); Hemoglobin 8.8 g/dL (13.0-18.0); Mean Corp Hgb Conc. 31.3 g/dL (33.0-37.0); Mean Corpuscular Volume 82.6 fL (80.0-94.0); Platelet Count 230 10^3/uL (130-400); Red Cell Dist. Width 13.5 % (11.5-14.5)
[2025-09-15] MEDS: DILAUDID 4 MG PO ×3 (10:45→19:36)
[2025-09-15 11:19] LABS: Glucose - Point of Care 262 mg/dl (70-99)
[2025-09-15] MEDS: NOVOLOG FLEXPEN-LOW RESISTANCE 3 UNITS SC ×2 (11:57→16:43)
[2025-09-15] MEDS: ROXICODONE 5 MG PO ×2 (14:02→22:04)
--- NOTE | 2025-09-15 15:22 | W.PN.HOSP.TC ---
Today's Communication/Plan
-
Assessment / Plan
Assessment / Plan
50M with DM, polysubstance abuse, tobacco use, cirrhosis, HLD, BPH, P/W right foot gas gangrene.
NAD
Scleral Anicteric
MMM
No JVD
CTABL
RRR, S1/S2
Soft, NT, ND, BS+
Warm, Dry
Right ankle and below amputation
AAOx3
Calm
Right foot gas gangrene
Concern for sepsis on admission, ruled out, likely aborted with early antibiotic initiation.
Not salvageable with plan for staged amputation.
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
Wound culture with presumptive Staph aureus and Citrobacter
Continue vancomycin and Rocephin per ID recommendations
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
Transition off TIMING MACHINE OPERATOR to as needed hydromorphone/oxycodone titrating dose as required
Continue gabapentin
Hypokalemia�resolved
Repleted with oral potassium
Poorly controlled IDDM
Hemoglobin A1c 10.5%
Persistent hyperglycemia, hypoglycemic episode last night
Continue Lantus preadmission dose 35 units twice daily.
SSI
Hold glipizide acutely
Cirrhosis
secondary to alcohol and possibly hepatitis C./Treated hepatitis C. Currently compensated
Diarrhea
Could be secondary to antibiotic, consider changing Zosyn to ceftriaxone, will defer to ID
ruled out C. difficile
Other stool studies still pending
Loperamide
Multisubstance use disorder
Currently travel out of state for initiation of drug rehab.
Reports sobriety for at least over a months.
Continue preadmission regimen including, risperidone, gabapentin, sertraline, trazodone.
Hold naltrexone while on hydromorphone
Further adjustment of analgesic regimen including opioids while patient on naltrexone
DVT ppx
Lovenox
S/p bka. Homeless from [place]
CM looking for local SNF
Anticipated Discharge: > 48 hours
Subjective/Interval History
-
Date of Service: September 15, 2025
seen and exmiamined. no new complaints
Objective Data
-
Labs:
Laboratory Results
09/15/25
06:41
WBC 8.0
Hgb 8.8 L
Hct 28.1 L
Plt Count 230
Vital Signs:
Vital Signs
Temp Pulse Resp BP Pulse Ox
98.2 F 87 14 138/81 98
09/15/25 07:43 09/15/25 07:43 09/15/25 10:54 09/15/25 07:43 09/15/25 10:54
I&O
09/14/25 09/15/25 09/16/25
06:59 06:59 06:59
Intake Total 820 / 820 2280 / 2280
Output Total 6125 / 6125 4650 / 4650 1500 / 1500
Balance -5305 / -5305 -2370 / -2370 -1500 / -1500
[2025-09-15 15:31] VITALS: BP 142/78
[2025-09-15 16:20] LABS: Glucose - Point of Care 262 mg/dl (70-99)
[2025-09-15 21:16] LABS: Glucose - Point of Care 374 mg/dl (70-99)
[2025-09-15] MEDS: LIPITOR 20 MG PO (22:04)
[2025-09-15] MEDS: LANTUS 0.32 UNITS SC (22:05)
[2025-09-15] MEDS: DESYREL 50 MG PO (22:52)
[2025-09-15] MEDS: RISPERDAL 2 MG PO (22:52)
[2025-09-15 23:02] VITALS: BP 138/82
[2025-09-16] MEDS: TYLENOL PO ×3 (00:08→11:43)
[2025-09-16] MEDS: DILAUDID 4 MG PO ×5 (01:31→23:44)
[2025-09-16] MEDS: TYLENOL 650 MG PO ×5 (04:50→23:47)
[2025-09-16] MEDS: ROXICODONE 5 MG PO ×3 (04:50→21:49)
[2025-09-16 07:03] VITALS: BP 143/95
[2025-09-16] MEDS: NEURONTIN 1200 MG PO ×3 (07:41→21:43)
[2025-09-16] MEDS: FLOMAX 0.8 MG PO (07:42)
[2025-09-16] MEDS: ZOLOFT 100 MG PO (07:42)
[2025-09-16] MEDS: BENTYL 20 MG PO ×3 (07:43→21:44)
[2025-09-16] MEDS: ATARAX 50 MG PO ×3 (07:43→21:44)
[2025-09-16] MEDS: PROTONIX 40 MG PO (07:44)
[2025-09-16] MEDS: NICODERM TRANSDERMAL 21 MG TRANSDERM (07:44)
[2025-09-16 07:45] LABS: Glucose - Point of Care 233 mg/dl (70-99)
[2025-09-16] MEDS: NOVOLOG FLEXPEN 8 UNITS SC ×3 (08:08→18:04)
[2025-09-16] MEDS: NOVOLOG FLEXPEN-LOW RESISTANCE 5 UNITS SC (08:09)
[2025-09-16] MEDS: LANTUS 0.35 UNITS SC (08:10)
--- NOTE | 2025-09-16 08:15 | PTCARENOTE ---
09/16- Patient is noncompliant with Diabetes nutrition, and today he is refusing to get out of bed despite education about complications of immobillity. Patient gets chocolate ice cream (sugar free) with every meal, white breads, white pastas and
jello. Educated on Diabetes nutrition. He verbalized understanding. He stated, 'yeah I try.' Discussed potential consequences of immobility and noncompliance with Diabetes. He verbalized understanding again. Gave printed education and consulted
nutrition.
[2025-09-16 11:36] LABS: Glucose - Point of Care 248 mg/dl (70-99)
[2025-09-16] MEDS: NOVOLOG FLEXPEN-LOW RESISTANCE 2 UNITS SC (11:39)
--- NOTE | 2025-09-16 12:04 | W.PN.HOSP.TC ---
Today's Communication/Plan
-
Continue analgesics
senior catering sales manager continues to work on placement
Assessment / Plan
Assessment / Plan
50M with DM, polysubstance abuse, tobacco use, cirrhosis, HLD, BPH, P/W right foot gas gangrene.
NAD
Scleral Anicteric
MMM
No JVD
CTABL
RRR, S1/S2
Soft, NT, ND, BS+
Warm, Dry
Right ankle and below amputation
AAOx3
Calm
Right foot gas gangrene
Concern for sepsis on admission, ruled out, likely aborted with early antibiotic initiation.
Not salvageable with plan for staged amputation.
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
Wound culture with presumptive Staph aureus and Citrobacter
Continue vancomycin and Rocephin per ID recommendations
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
Transition off DIRECTOR MEDICAL SCIENCE to as needed hydromorphone/oxycodone titrating dose as required
Continue gabapentin
Hypokalemia�resolved
Repleted with oral potassium
Poorly controlled IDDM
Hemoglobin A1c 10.5%
Persistent hyperglycemia, hypoglycemic episode last night
Continue Lantus preadmission dose 35 units twice daily.
SSI
Hold glipizide acutely
Cirrhosis
secondary to alcohol and possibly hepatitis C./Treated hepatitis C. Currently compensated
Diarrhea
Could be secondary to antibiotic, consider changing Zosyn to ceftriaxone, will defer to ID
ruled out C. difficile
Other stool studies still pending
Loperamide
Multisubstance use disorder
Currently travel out of state for initiation of drug rehab.
Reports sobriety for at least over a months.
Continue preadmission regimen including, risperidone, gabapentin, sertraline, trazodone.
Hold naltrexone while on hydromorphone
Further adjustment of analgesic regimen including opioids while patient on naltrexone
DVT ppx
Lovenox
S/p bka. Homeless from [place]
CM looking for local SNF
Anticipated Discharge: 24 - 48 hours
Subjective/Interval History
-
Date of Service: September 16, 2025
Seen and examined. No new complaints. No acute overnight events.
Objective Data
-
Vital Signs:
Vital Signs
Temp Pulse Resp BP Pulse Ox
98.5 F 94 16 143/95 99
09/16/25 07:03 09/16/25 07:03 09/16/25 07:03 09/16/25 07:03 09/16/25 07:10
I&O
09/15/25 09/16/25 09/17/25
06:59 06:59 06:59
Intake Total 2280 / 2280 1620 / 1620
Output Total 4650 / 4650 3900 / 3900
Balance -2370 / -2370 -2280 / -2280
[2025-09-16 15:59] VITALS: BP 158/105
[2025-09-16 16:33] LABS: Glucose - Point of Care 272 mg/dl (70-99)
[2025-09-16] MEDS: NOVOLOG FLEXPEN-LOW RESISTANCE 3 UNITS SC (18:05)
[2025-09-16 21:13] LABS: Glucose - Point of Care 352 mg/dl (70-99)
[2025-09-16] MEDS: DESYREL 50 MG PO (21:43)
[2025-09-16] MEDS: RISPERDAL 2 MG PO (21:44)
[2025-09-16] MEDS: LANTUS 0.32 UNITS SC (21:44)
[2025-09-16] MEDS: LIPITOR 20 MG PO (21:44)
[2025-09-16 23:03] VITALS: BP 143/81
[2025-09-17] MEDS: ROXICODONE 5 MG PO ×4 (02:38→17:56)
[2025-09-17] MEDS: TYLENOL 650 MG PO ×6 (03:44→23:25)
[2025-09-17] MEDS: DILAUDID 4 MG PO ×5 (03:45→23:27)
[2025-09-17 07:00] VITALS: BP 121/73
--- NOTE | 2025-09-17 07:30 | PN.DE.MGMTRT ---
Insulin Management
- -
09/17/2025: Diabetes Management Follow up
50 year old male admitted 09/05 with increased right foot swelling redness and foot drainage found to have right foot wet gangrene. PMH: Uncontrolled T2DM, Peripheral neuropathy and Chronic foot wounds, cirrhosis, HLD, alcohol and methamphetamine
abuse (was in treatment center for rehab). Prior to admission was ordered Lantus 35 units BID and Glipizide 5mg daily. Pt states he was not taking the Lantus as prescribed, he was only taking it in the morning. He reports that his HS Lantus dose
was discontinued due to recurrent hypoglycemia in the morning while in rehab for polysubstance abuse.
Glucose on admission was 393, A1C 10.8%, Cr 0.6, eGFR >60.
09/06 right lower extremity ankle disarticulation.
Patient awake, alert, oriented, resting in bed, offers no complaints, able to discuss diabetes care plan
POD # 4 s/p right BKA. Pain is well controlled on INSIDE SALES ACCOUNT MANAGER pump.
09/13 NovoLog dose was increased from 6 units to 8 units.
09/16 premeal glucose range 233 to 272, received 1.5 units of corrective insulin with meals
Will increase AC NovoLog to 10 units. Cont low corrective insulin with meals
HS glucose was 352, received Lantus 32 units, fasting glucose 173 POC, will increase HS Lantus dose to 34 units. Cont AM Lantus 35 units.
STOPPED Glipizide, will not resume at discharge.
Discussed with nurse. Continue close glucose monitoring and adjust insulin dose if necessary.
Diabetes History
- -
Type of Diabetes: 2 requiring insulin
Pre-Admission Diabetes Regimen
Lab Results
Hemoglobin A1c 10.8 % (4.0-5.6) H 09/06/25 06:29
Insulin Pump Settings
IP Diabetes Regimen
09/16/25 09/16/25 09/16/25
07:44 11:32 16:32
POC Glucose 233 H 248 H 272 H
09/16/25
21:12
POC Glucose 352 H
Meal type: Breakfast
Amount consumed: 100%
Patient Education
[2025-09-17] MEDS: PROTONIX 40 MG PO (07:56)
[2025-09-17] MEDS: ATARAX 50 MG PO ×3 (07:56→21:40)
[2025-09-17] MEDS: NEURONTIN 1200 MG PO ×3 (07:56→21:40)
[2025-09-17] MEDS: BENTYL 20 MG PO ×3 (07:57→21:41)
[2025-09-17] MEDS: NICODERM TRANSDERMAL 21 MG TRANSDERM (07:57)
[2025-09-17] MEDS: ZOLOFT 100 MG PO (07:57)
[2025-09-17] MEDS: FLOMAX 0.8 MG PO (07:57)
[2025-09-17] MEDS: LANTUS 0.35 UNITS SC (08:00)
[2025-09-17 08:06] LABS: Glucose - Point of Care 173 mg/dl (70-99)
[2025-09-17] MEDS: NOVOLOG FLEXPEN-LOW RESISTANCE 1 UNITS SC (09:02)
[2025-09-17] MEDS: NOVOLOG FLEXPEN 8 UNITS SC (09:03)
--- NOTE | 2025-09-17 09:54 | W.PN.VS ---
Today's Communication / Plan
-
Seen and assessed with Dr. Valentino
Assessment/Plan
-
Postop s/p right ankle disarticulation, POD #3 right below the knee amputation
Plan:
Continue overhead trapeze
Continue PT
Okay for discharge from vascular standpoint
Continue daily dressing change of gentle Walter wrap
I will add follow-up to the chart. Call with questions or concerns
Subjective Data
-
Date of Service: September 17, 2025
Patient seen at bedside this a.m. with Dr. Valenitno. Patient complains of moderate discomfort. No events overnight.
Objective Data
-
Vital Signs
Temp Pulse Resp BP Pulse Ox
100.3 F 116 12 121/73 91
09/17/25 07:00 09/17/25 07:00 09/17/25 07:00 09/17/25 07:00 09/17/25 07:00
Intake and Output
09/16/25 09/17/25 09/18/25
06:59 06:59 06:59
Intake Total 1620 / 1620 960 / 960
Output Total 3900 / 3900 1750 / 1750
Balance -2280 / -2280 -790 / -790
Intake:
Oral fluids 1620 / 1620 960 / 960
Output:
Urine, Voided 3300 / 3300 1750 / 1750
Straight cath output 600 / 600
Lab Results
09/15/25 06:41
09/14/25 07:09
Calcium 7.7 mg/dl (8.4-10.2) L 09/14/25 07:09
Phosphorus 3.2 mg/dl (2.5-4.5) 09/06/25 16:37
Magnesium 2.0 mg/dl (1.6-2.3) 09/06/25 16:37
Total Bilirubin 0.7 mg/dl (0.2-1.3) 09/05/25 16:56
AST 32 U/L (17-59) 09/05/25 16:56
ALT 22 U/L (0-50) 09/05/25 16:56
Alkaline Phosphatase 146 U/L (38-126) H 09/05/25 16:56
Total Protein 6.7 g/dl (6.3-8.2) 09/05/25 16:56
Albumin 3.5 g/dl (3.5-5.0) 09/05/25 16:56
Physical Exam
-
AO x 3
No tachypnea on room air
No tachycardia
Abdomen soft
Right BKA dressing removed, staple site clean, dry, and intact, all compartments soft and no evidence of hematoma, redressed with gentle Walter wrap
[2025-09-17 11:34] LABS: Glucose - Point of Care 252 mg/dl (70-99)
--- NOTE | 2025-09-17 11:53 | W.PN.HOSP.TC ---
Today's Communication/Plan
-
Current surgical wound care and medication.
Medically stable for discharge
Ongoing disposition-
Assessment / Plan
Assessment / Plan
50M with DM, polysubstance abuse, tobacco use, cirrhosis, HLD, BPH, P/W right foot gas gangrene.
Right foot gas gangrene
Concern for sepsis on admission, ruled out, likely aborted with early antibiotic initiation.
Not salvageable with plan for staged amputation.
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
Wound culture with presumptive Staph aureus and Citrobacter
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
Transition off WINTER INTERN to as needed hydromorphone/oxycodone titrating dose as required
Continue gabapentin
Off of antibiotics
Poorly controlled IDDM
Hemoglobin A1c 10.5%
Persistent hyperglycemia, hypoglycemic episode last night
Continue Lantus preadmission dose 35 units twice daily.
SSI
Hold glipizide acutely
Diabetic nurse practitioner following
Cirrhosis
secondary to alcohol and possibly hepatitis C./Treated hepatitis C. Currently compensated
Diarrhea
Could be secondary to antibiotic
ruled out C. difficile
Other stool studies negative so far
Loperamide
Multisubstance use disorder
Currently travel out of state for initiation of drug rehab.
Reports sobriety for at least over a months.
Continue preadmission regimen including, risperidone, gabapentin, sertraline, trazodone.
Hold naltrexone while on hydromorphone
Further adjustment of analgesic regimen including opioids while patient on naltrexone
DVT ppx
Lovenox
S/p bka. Homeless from [place]
CM looking for local SNF
Anticipated Discharge: 24 - 48 hours
Subjective/Interval History
-
Date of Service: September 17, 2025
Complaints of diarrhea. Multiple loose episodes. No nausea vomiting. No abdominal pain. Had a low-grade fever today. No chills.
Denies any shortness of breath or chest pain.
No lightheadedness. Able to participate with physical therapy.
Objective Data
-
Vital Signs:
Vital Signs
Temp Pulse Resp BP Pulse Ox
100.3 F 116 12 121/73 91
09/17/25 07:00 09/17/25 07:00 09/17/25 07:00 09/17/25 07:00 09/17/25 07:00
I&O
09/16/25 09/17/25 09/18/25
06:59 06:59 06:59
Intake Total 1620 / 1620 960 / 960
Output Total 3900 / 3900 1750 / 1750
Balance -2280 / -2280 -790 / -790
Physical Exam
-
General: No Apparent Distress
HEENT: Moist Mucous Membranes
Respiratory: Clear to Auscultation
Cardiac: Regular Rhythm, S1/S2 and Tachycardic
GI: Soft, Nontender, Nondistended and Normal Bowel Sounds
Musculoskeletal: Other (Right BKA noted-in surgical dressing)
Neuro: AO x 3
Psych: Calm
[2025-09-17] MEDS: NOVOLOG FLEXPEN-LOW RESISTANCE 3 UNITS SC ×2 (12:29→17:43)
[2025-09-17] MEDS: NOVOLOG FLEXPEN 10 UNITS SC ×2 (12:29→17:43)
[2025-09-17 12:43] VITALS: BP 125/75; PULSE 112; O2SAT 95
--- NOTE | 2025-09-17 12:43 | CM ---
Patient has been accepted at [facility] today. training and development manager reached out to patient's insurance, [facility] this morning employment evaluator/case manager, Christy Armstrong, , [phone], and spoke with Jhonny at [facility] pending Auth/Intake ID # [id number],
all clinicals faxed to [phone], waiting on determination.
Plan; Skilled placement at [facility]. Waiting on Auth.
[2025-09-17 13:25] VITALS: BP 125/75; PULSE 110
[2025-09-17] MEDS: FLUZONE (6 mos+) 2025-2026 FORMULA 0.5 ML IM (13:33)
[2025-09-17 15:16] VITALS: BP 120/73
[2025-09-17] MEDS: IMODIUM 2 MG PO ×2 (15:24→19:28)
--- NOTE | 2025-09-17 15:53 | W.DCSUMMARY ---
Addendum entered and electronically signed by Cipriano Otto MD 09/18/25 11:00:
Date of discharge 09/18/2025 - Insurance authorization came in today . No events overnight.
Original Note:
Discharge Summary
Discharge Data
Date of Admission: 09/05/25
Date of Discharge: 09/17/25
-
Pending Results: No
Hospital Course
Primary diagnosis:
Right right diabetic foot wound with gas gangrene s/p BKA on 09/13
Poorly controlled diabetes mellitus 10.5 hemoglobin A1c
Secondary diagnosis:
History of cirrhosis
History of hepatitis C which was treated
Multi substance abuse disorder
Hospital course:
Patient is from [place] and came in here to [facility] for drug rehab. He has multisubstance use disorder especially with methamphetamine. He was having issues with the right foot diabetic wound which was not healing and he was sent from
rehab and was noted to have gas gangrene of the right foot. Was seen by vascular surgery and had initially right ankle disarticulation on 09/13. Subsequently needed to have right BKA on 09/13. Wound cultures was growing MRSA and Citrobacter. Was
seen by ID was put on initially broad-spectrum antibiotics. Once the BKA was done antibiotics were discontinued. His pain was under control prior to discharge.
His hemoglobin A1c was 10.5 poorly controlled. Was seen by diabetic nurse practitioner. Was kept on Lantus but nutritional insulin was added. His glipizide was discontinued on this admission.
He is known to have cirrhosis but he was compensated.
No issues with the drug use withdrawal here.
He was seen by PT and was discharged to SNF.
Consultants on board:
Vascular-Hossein Weems
ID-Alexa Medina
Portions of this chart may have been created with voice recognition software. Occasional wrong word or 'sound alike' substitutions may have occurred due to the inherent limitations of voice recognition software.
Discharge Plan
-
Patient Disposition: Retirement/SNF
Discharge Diagnosis/Procedures: Right foot gas gangrene status post right BKA; poorly controlled diabetes mellitus; multisubstance drug use disorder; cirrhosis; treated hepatitis C
Diet: As tolerated
Activity: With assistance, As tolerated and No strenuous activity
Driving Restrictions: No driving
Bathing Restrictions: OK to Shower
Blood Work: CBC and CMP in 1 week
Other Services: PT and OT
Activity Restrictions/Additional Instructions:
Wound Care Instructions
L heel ulcer-swab with Betadine (allow to dry), foam dressing, change daily.
NWB RLE.
Stump site- clean dry dressing applied daily. Changed dressing immediately when soiled as well.
Follow up with vascular surgeon.
Stand Alone Forms: Vascular Surg Discharge Instr
Referrals:
UNKNOWN - PT DOES,NOT KNOW [Family Provider]
Zahida Abdullahi CRNP [Specified Professional Personl, Vascular Surgery] - 10/03/25 3:00 pm
Referral Note: Vascular office follow up
Prescriptions:
New
loperamide 2 mg Capsule
2 mg PO Q4HPRN PRN (Reason: diarrhea) Qty: 1 0RF
insulin aspart U-100 100 unit/mL (3 mL) Insulin Pen
10 unit SC AC Qty: 15 0RF
acetaminophen 325 mg Tablet
650 mg PO Q4HWA Qty: 1 0RF
oxycodone 5 mg Tablet
5 mg PO Q4HPRN PRN (Reason: mild pain) Qty: 20 0RF
Continued
atorvastatin 20 mg Tablet
20 mg PO HS
dicyclomine 20 mg Tablet
20 mg PO TID
gabapentin 600 mg Tablet
1,200 mg PO TID
trazodone 50 mg Tablet
50 mg PO HS
naltrexone 50 mg Tablet
50 mg PO DAILY
sertraline 100 mg Tablet
100 mg PO DAILY
hydroxyzine pamoate 50 mg Capsule
50 mg PO TID
risperidone 2 mg Tablet
2 mg PO HS
tamsulosin 0.4 mg Capsule
0.8 mg PO DAILY
pantoprazole 40 mg Tablet,Delayed Release (Dr/Ec)
40 mg PO DAILY
furosemide 20 mg Tablet
20 mg PO DAILY
insulin degludec 100 unit/mL (3 mL) Insulin Pen
35 unit SC BID
Discontinued
meloxicam 15 mg Tablet
15 mg PO DAILY
glipizide 5 mg Tablet
5 mg PO DAILY
Discharge Orders:
Discharge Patient (As Directed); Ordered 09/17/25
Ordered By: Cipriano Otto
Discharge Date and Time
Print Language: GREENLANDIC
[2025-09-17 17:05] LABS: Glucose - Point of Care 253 mg/dl (70-99)
[2025-09-17 21:22] LABS: Glucose - Point of Care 225 mg/dl (70-99)
[2025-09-17] MEDS: LANTUS 0.34 UNITS SC (21:40)
[2025-09-17] MEDS: DESYREL 50 MG PO (21:41)
[2025-09-17] MEDS: LIPITOR 20 MG PO (21:41)
[2025-09-17] MEDS: RISPERDAL 2 MG PO (21:41)
[2025-09-17 23:16] VITALS: BP 161/61
[2025-09-18] MEDS: TYLENOL PO (05:05)
[2025-09-18 07:00] VITALS: BP 129/76
[2025-09-18 07:27] LABS: Glucose - Point of Care 180 mg/dl (70-99)
[2025-09-18] MEDS: NOVOLOG FLEXPEN 10 UNITS SC ×2 (07:49→11:42)
[2025-09-18] MEDS: NOVOLOG FLEXPEN-LOW RESISTANCE 1 UNITS SC (07:49)
[2025-09-18] MEDS: NICODERM TRANSDERMAL 21 MG TRANSDERM (07:50)
[2025-09-18] MEDS: DILAUDID 4 MG PO (07:50)
[2025-09-18] MEDS: PROTONIX 40 MG PO (07:50)
[2025-09-18] MEDS: BENTYL 20 MG PO (07:50)
[2025-09-18] MEDS: NEURONTIN 1200 MG PO (07:50)
[2025-09-18] MEDS: FLOMAX 0.8 MG PO (07:51)
[2025-09-18] MEDS: ATARAX 50 MG PO (07:51)
[2025-09-18] MEDS: LANTUS 0.35 UNITS SC (07:51)
[2025-09-18] MEDS: ZOLOFT 100 MG PO (07:51)
[2025-09-18] MEDS: TYLENOL 650 MG PO ×2 (07:51→11:43)
--- NOTE | 2025-09-18 08:31 | CM ---
Addendum entered by Tanvi Lutz 09/18/25 11:18:
Auth for 5 days skilled from [facility] [phone] 09/17/25 to 09/22/25. NRD 09/20/25, Update also provided to Adolph at [facility].
Addendum entered by Tanvi Lutz 09/18/25 10:23:
[facility]
Report [phone]

Addendum entered by Tanvi Lutz 09/18/25 10:04:
Patient has been approved for skilled placement at [facility], patient has a 12:00 slate picker by ambulance.
Original Note:
Still waiting on Auth, call placed to insurance this morning
Plan; Waiting on Auth from [facility] for skilled placement today at [facility].
--- NOTE | 2025-09-18 09:20 | PN.DE.MGMTRT ---
Insulin Management
- -
09/18/2025: Diabetes Management Follow up
50 year old male admitted 09/05 with increased right foot swelling redness and foot drainage found to have right foot wet gangrene. PMH: Uncontrolled T2DM, Peripheral neuropathy and Chronic foot wounds, cirrhosis, HLD, alcohol and methamphetamine
abuse (was in treatment center for rehab). Prior to admission was ordered Lantus 35 units BID and Glipizide 5mg daily. Pt states he was not taking the Lantus as prescribed, he was only taking it in the morning. He reports that his HS Lantus dose
was discontinued due to recurrent hypoglycemia in the morning while in rehab for polysubstance abuse.
Glucose on admission was 393, A1C 10.8%, Cr 0.6, eGFR >60.
09/06 right lower extremity ankle disarticulation.
Patient awake, alert, oriented, resting in bed, offers no complaints, able to discuss diabetes care plan
POD # 5 s/p right BKA.
09/13 NovoLog dose was increased from 6 units to 8 units.
09/17 premeal glucose range 173 to 253, received 1 to 3 units of corrective insulin with meals. AC novolog increased to 10 units with low corrective insulin. Received 34 units lantus @ HS and 35 units in AM.
09/18 Fasting glucose 180. Will continue current regimen.
STOPPED Glipizide, will not resume at discharge.
Discussed with nurse. Continue close glucose monitoring and adjust insulin dose if necessary.
Diabetes History
- -
Type of Diabetes: 2 requiring insulin
Pre-Admission Diabetes Regimen
Lab Results
Hemoglobin A1c 10.8 % (4.0-5.6) H 09/06/25 06:29
Insulin Pump Settings
IP Diabetes Regimen
09/17/25 09/17/25 09/17/25
11:33 17:04 21:20
POC Glucose 252 H 253 H 225 H
09/18/25
07:26
POC Glucose 180 H
Meal type: Dinner
Meal type: Breakfast
Amount consumed: 100%
Amount consumed: 100%
Patient Education
[2025-09-18] MEDS: ROXICODONE 5 MG PO (10:39)
--- NOTE | 2025-09-18 11:01 | W.PN.HOSP.TC ---
Today's Communication/Plan
-
DC
Assessment / Plan
Assessment / Plan
50M with DM, polysubstance abuse, tobacco use, cirrhosis, HLD, BPH, P/W right foot gas gangrene.
Right foot gas gangrene
Concern for sepsis on admission, ruled out, likely aborted with early antibiotic initiation.
Not salvageable with plan for staged amputation.
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
Wound culture with presumptive Staph aureus and Citrobacter
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
Transition off ASSISTANT GENERAL MANAGER to as needed hydromorphone/oxycodone titrating dose as required
Continue gabapentin
Off of antibiotics
Poorly controlled IDDM
Hemoglobin A1c 10.5%
Persistent hyperglycemia, hypoglycemic episode last night
Continue Lantus preadmission dose 35 units twice daily. CW attritional insulin which was introduced by diabetic nurse practitioner.
SSI
Hold glipizide going forward
Diabetic nurse practitioner following
Cirrhosis
secondary to alcohol and possibly hepatitis C./Treated hepatitis C. Currently compensated
Diarrhea
Could be secondary to antibiotic
ruled out C. difficile
Other stool studies negative so far
Loperamide
Multisubstance use disorder
Currently travel out of state for initiation of drug rehab.
Reports sobriety for at least over a months.
Continue preadmission regimen including, risperidone, gabapentin, sertraline, trazodone.
Hold naltrexone while on hydromorphone
Further adjustment of analgesic regimen including opioids while patient on naltrexone
DVT ppx
Lovenox
S/p bka. Homeless from [place]
Discussed with case management. Insurance authorization obtained today and has a place in local SNF. Stable for discharge.
Anticipated Discharge: Today
Subjective/Interval History
-
Date of Service: September 18, 2025
No overnight events. Improved GI symptoms. Denies any fever chills. No nausea vomiting.
Denies shortness of breath or chest pain.
Objective Data
-
Vital Signs:
Vital Signs
Temp Pulse Resp BP Pulse Ox
98.3 F 86 12 129/76 95
09/18/25 07:00 09/18/25 07:00 09/18/25 07:00 09/18/25 07:00 09/18/25 07:00
I&O
09/17/25 09/18/25 09/19/25
06:59 06:59 06:59
Intake Total 960 / 960 1600 / 1600
Output Total 1750 / 1750 1305 / 1305
Balance -790 / -790 295 / 295
Physical Exam
-
General: Comfortable
Respiratory: Clear to Auscultation and Non Labored Respirations; Negative Accessory Resp Muscle Use
Cardiac: Regular Rhythm and S1/S2
GI: Soft and Nontender
Neuro: AO x 3
Psych: Calm
[2025-09-18 11:11] LABS: Glucose - Point of Care 338 mg/dl (70-99)
[2025-09-18] MEDS: NOVOLOG FLEXPEN-LOW RESISTANCE 5 UNITS SC (11:43)
[2025-09-18] MEDS: IMODIUM 2 MG PO (11:50)
--- NOTE | 2025-09-18 12:09 | TRANSFER ---
Report called to [facility]. Discharge packet with last dose printed and sent with accompanying scripts. IVs removed. Patient given a bed bath. Patient did eat lunch, insulin administered in addition to PRN immodium. Bowel movement
made prior to departure. Patient's belongings found and sent with patient to facility. Transport here for parts picker.
== END 2025-09-18 12:53 | DRG 239 ==
LOC: 4 WEST ACU 21:04
PROVIDERS: Internal Medicine; Internal Medicine Infectious Disease; Nurse Practitioner; Nurse Practitioner Acute Care; Nurse Practitioner Family; Student in an Organized Health Care Education/Training Program; ADMITTING PHYSICIAN Internal Medicine; ATTENDING PHYSICIAN Internal Medicine; CONSULT PHYSICIAN Internal Medicine; EMERGENCY PHYSICIAN Emergency Medicine; OTHER PHYSICIAN Internal Medicine Infectious Disease; OTHER PHYSICIAN Student in an Organized Health Care Education/Training Program; OTHER PHYSICIAN Surgery Vascular Surgery
PROC: 0Y6M0Z0 Detachment at Right Foot, Complete, Open Approach (ICD-10-PCS; 2025-09-06)
PROC: 0Y6H0Z2 Detachment at Right Lower Leg, Mid, Open Approach (ICD-10-PCS; 2025-09-13)
PROC: 3E02340 Introduction of Influenza Vaccine into Muscle, Percutaneous Approach (ICD-10-PCS; 2025-09-17)
DX: E11.52 Type 2 diabetes mellitus with diabetic peripheral angiopathy with gangrene (principal); A48.0 Gas gangrene; L03.115 Cellulitis of right lower limb; T79.7XXA Traumatic subcutaneous emphysema, initial encounter; E87.1 Hypo-osmolality and hyponatremia; K52.1 Toxic gastroenteritis and colitis; Z59.00 Homelessness unspecified; M86.9 Osteomyelitis, unspecified; E11.621 Type 2 diabetes mellitus with foot ulcer; L97.519 Non-pressure chronic ulcer of other part of right foot with unspecified severity; F10.10 Alcohol abuse, uncomplicated; F15.10 Other stimulant abuse, uncomplicated; E11.65 Type 2 diabetes mellitus with hyperglycemia; E78.00 Pure hypercholesterolemia, unspecified; F41.9 Anxiety disorder, unspecified; F32.A Depression, unspecified; F17.210 Nicotine dependence, cigarettes, uncomplicated; E11.40 Type 2 diabetes mellitus with diabetic neuropathy, unspecified; K70.30 Alcoholic cirrhosis of liver without ascites; B19.20 Unspecified viral hepatitis C without hepatic coma; E11.69 Type 2 diabetes mellitus with other specified complication; F17.200 Nicotine dependence, unspecified, uncomplicated; I10 Essential (primary) hypertension; T36.8X5A Adverse effect of other systemic antibiotics, initial encounter; Y92.239 Unspecified place in hospital as the place of occurrence of the external cause; N40.0 Benign prostatic hyperplasia without lower urinary tract symptoms; E87.6 Hypokalemia; F19.10 Other psychoactive substance abuse, uncomplicated; E11.628 Type 2 diabetes mellitus with other skin complications; Z79.84 Long term (current) use of oral hypoglycemic drugs; Z79.4 Long term (current) use of insulin; Z79.1 Long term (current) use of non-steroidal anti-inflammatories (NSAID); Z79.899 Other long term (current) drug therapy; Z23 Encounter for immunization
CPT/HCPCS: 27880; 27889; 71045; 73590; 73630; 73701; 80048; 80053; 80061; 80202; 82565; 82962; 83036; 83605; 83735; 84100; 84520; 85014; 85018; 85025; 85027; 85610; 85730; 86850; 86900; 86901; 87040; 87045; 87046; 87070; 87075; 87077; 87147; 87186; 87205; 87324; 87328; 87329; 87427; 87449; 88307; 88311; 89055; 90656; 93005; 97112; 97163; 97167; 97530; 99285; G0008; Q9967